=== PATIENT | male | born 1955 | race Caucasian/White ===

== ENCOUNTER 2020-09-01 14:34 | Inpatient (IN) | payer OTHER ==
[2020-09-01] MEDS ORDERED: SODIUM CHLORIDE 0.9% 1,000 ML IV STA (15:00)
[2020-09-01] MEDS ORDERED: ACETAMINOPHEN TAB 500 MG TAB PO STA (15:00)
--- NOTE | 2020-09-01 15:12 | ED ---
General Adult HPI - General Chief complaint: Fever Stated complaint: fever,cough Time Seen by Provider: 09/01/20 14:59 Source: patient Mode of arrival: ambulatory Limitations: no limitations - History of Present Illness Initial comments: Dictation was produced using [employer]Enable dictation software. please excuse any grammatical, word or spelling errors. Chief Complaint: 65-year-old male presents with respiratory infectious symptoms for 8 days History of Present Illness: Exudate 5-year-old male who presents with symptoms of respiratory illness for 8 days. Patient denies any obvious sick exposures. States that his symptoms include cough, fever and shortness of breath. Tuesday last week which was 3 days ago he had a rapid Covid test performed at [facility] which he recently found out was positive. States that his symptoms have been slowly worsening. Patient states his cough is nonproductive. Denies any medical history. His past surgical history cholecystectomy. He denies getting his Covid vaccination. The ROS documented in this emergency department record has been reviewed and confirmed by me. Those systems with pertinent positive or negative responses have been documented in the HPI. All other systems are other negative and/or noncontributory. PHYSICAL EXAM: General Impression: Alert and oriented x3, not in acute distress HEENT: Normocephalic atraumatic, extra-ocular movements intact, pupils equal and reactive to light bilaterally, mucous membranes moist. Cardiovascular: Heart regular rate and rhythm Chest: Able to complete full sentences, no retractions, no tachypnea Abdomen: abdomen soft, non-tender, non-distended, no organomegaly Musculoskeletal: Pulses present and equal in all extremities, no peripheral edema Motor: no focal deficits noted Neurological: CN II-XII grossly intact, no focal motor or sensory deficits noted Skin: Intact with no visualized rashes Psych: Normal affect and mood ED course: 65-year-old well-appearing male allegedly tested positive for Covid 3 days ago. He presents today with worsening respiratory infectious symptoms. Signs upon arrival shows 89% on room air, temperature 101.1. Laboratory evaluation obtained. CBC is unremarkable. D-dimer slightly elevated at 0.71. Metabolic panel shows potassium 3.0. Slight elevation of liver markers. For panel virus PCR is negative for influenza RSV and coronavirus. X- ray shows patchy airspace disease possible pneumonia versus COVID-19. Believe that are PCR was a false negative. Patient given Decadron. Patient will be admitted for hypoxic respiratory failure. Case discussed with Dr. Murphy. Pulmonology be on consult. Patient given azithromycin and ceftriaxone for concerns of community acquired pneumonia. Patient is agreeable to plan. EKG interpretation: Ventricular rate 90, normal sinus rhythm, AR interval 154, QRS 88, QTc 450. No AR prolongation, no QTC prolongation, no ST or T-wave change s noted. Overall, this EKG is unremarkable - Related Data Home Medications Medication Instructions Recorded Confirmed Aspirin EC [Ecotrin Low Dose] 81 mg PO HS 09/01/20 09/01/20 Melatonin 10 mg PO HS 09/01/20 09/01/20 Allergies Allergy/AdvReac Type Severity Reaction Status Date / Time No Known Allergies Allergy Verified 09/01/20 16:32 Review of Systems ROS Statement: Those systems with pertinent positive or pertinent negative responses have been documented in the HPI. ROS Other: All systems not noted in ROS Statement are negative. Past Medical History Past Medical History: No Reported History History of Any Multi-Drug Resistant Organisms: None Reported Past Surgical History: Cholecystectomy Past Psychological History: No Psychological Hx Reported Smoking Status: Never smoker Past Alcohol Use History: None Reported Past Drug Use History: None Reported General Exam Limitations: no limitations Course Vital Signs 09/01/20 09/01/20 09/01/20 14:40 14:57 15:16 Temperature 101.1 F H Pulse Rate 97 92 Respiratory 22 20 18 Rate Blood Pressure 125/86 131/86 O2 Sat by Pulse 89 L 90 L Oximetry 09/01/20 16:14 Temperature 99.0 F Pulse Rate 84 Respiratory 18 Rate Blood Pressure 119/76 O2 Sat by Pulse 96 Oximetry Medical Decision Making - Lab Data Result diagrams: 09/01/20 15:00 09/01/20 15:00 Lab Results 09/01/20 09/01/20 09/01/20 Range/Units 15:00 15:00 15:00 WBC 5.7 (3.8-10.6) k/uL RBC 5.49 (4.30-5.90) m/uL Hgb 15.4 (13.0-17.5) gm/dL Hct 46.6 (39.0-53.0) % MCV 84.9 (80.0-100.0) fL MCH 28.0 (25.0-35.0) pg MCHC 33.0 (31.0-37.0) g/dL RDW 13.9 (11.5-15.5) % Plt Count 121 L (150-450) k/uL MPV 7.1 Neutrophils % 81 % Lymphocytes % 11 % Monocytes % 5 % Eosinophils % 0 % Basophils % 0 % Neutrophils # 4.6 (1.3-7.7) k/uL Lymphocytes # 0.6 L (1.0-4.8) k/uL Monocytes # 0.3 (0-1.0) k/uL Eosinophils # 0.0 (0-0.7) k/uL Basophils # 0.0 (0-0.2) k/uL D-Dimer (<0.60) mg/L FEU Sodium 138 (137-145) mmol/L Potassium 3.0 L (3.5-5.1) mmol/L Chloride 98 (98-107) mmol/L Carbon Dioxide 33 H (22-30) mmol/L Anion Gap 7 mmol/L BUN 16 (9-20) mg/dL Creatinine 0.63 L (0.66-1.25) mg/dL Est GFR (CKD-EPI)AfAm >90 (>60 ml/min/1.73 sqM) Est GFR (CKD-EPI)NonAf >90 (>60 ml/min/1.73 sqM) Glucose 136 H (74-99) mg/dL Plasma Lactic Acid Ronn 1.1 (0.7-2.0) mmol/L Calcium 8.3 L (8.4-10.2) mg/dL Magnesium 2.1 (1.6-2.3) mg/dL Total Bilirubin 0.6 (0.2-1.3) mg/dL AST 114 H (17-59) U/L ALT 108 H (4-49) U/L Alkaline Phosphatase 68 (38-126) U/L C-Reactive Protein 14.6 H (<1.0) mg/dL Total Protein 6.4 (6.3-8.2) g/dL Albumin 3.4 L (3.5-5.0) g/dL Influenza Type A (PCR) (Not Detectd) Influenza Type B (PCR) (Not Detectd) RSV (PCR) (Not Detectd) SARS-CoV-2 (PCR) (Not Detectd) 09/01/20 09/01/20 Range/Units 15:00 15:16 WBC (3.8-10.6) k/uL RBC (4.30-5.90) m/uL Hgb (13.0-17.5) gm/dL Hct (39.0-53.0) % MCV (80.0-100.0) fL MCH (25.0-35.0) pg MCHC (31.0-37.0) g/dL RDW (11.5-15.5) % Plt Count (150-450) k/uL MPV Neutrophils % % Lymphocytes % % Monocytes % % Eosinophils % % Basophils % % Neutrophils # (1.3-7.7) k/uL Lymphocytes # (1.0-4.8) k/uL Monocytes # (0-1.0) k/uL Eosinophils # (0-0.7) k/uL Basophils # (0-0.2) k/uL D-Dimer 0.71 H (<0.60) mg/L FEU Sodium (137-145) mmol/L Potassium (3.5-5.1) mmol/L Chloride (98-107) mmol/L Carbon Dioxide (22-30) mmol/L Anion Gap mmol/L BUN (9-20) mg/dL Creatinine (0.66-1.25) mg/dL Est GFR (CKD-EPI)AfAm (>60 ml/min/1.73 sqM) Est GFR (CKD-EPI)NonAf (>60 ml/min/1.73 sqM) Glucose (74-99) mg/dL Plasma Lactic Acid Ronn (0.7-2.0) mmol/L Calcium (8.4-10.2) mg/dL Magnesium (1.6-2.3) mg/dL Total Bilirubin (0.2-1.3) mg/dL AST (17-59) U/L ALT (4-49) U/L Alkaline Phosphatase (38-126) U/L C-Reactive Protein (<1.0) mg/dL Total Protein (6.3-8.2) g/dL Albumin (3.5-5.0) g/dL Influenza Type A (PCR) Not Detected (Not Detectd) Influenza Type B (PCR) Not Detected (Not Detectd) RSV (PCR) Not Detected (Not Detectd) SARS-CoV-2 (PCR) Not Detected (Not Detectd) Disposition Clinical Impression: Respiratory failure with hypoxia Disposition: ADMITTED IP TO THIS HOSP Condition: Fair Referrals: Nonstaff,Physician [Primary Care Provider] - 1-2 days
[2020-09-01 15:35] LABS: ALT 108 U/L (4-49); AST 114 U/L (17-59); African American GFR (CKD) >90 (>60 ml/min/1.73 sqM); Albumin 3.4 g/dL (3.5-5.0); Alkaline Phosphatase 68 U/L (38-126); Anion Gap 7 mmol/L; Blood Urea Nitrogen 16 mg/dL (9-20); Calcium 8.3 mg/dL (8.4-10.2); Carbon Dioxide 33 mmol/L (22-30); Chloride 98 mmol/L (98-107); Glucose 136 mg/dL (74-99); Magnesium 2.1 mg/dL (1.6-2.3); Non-African American GFR(CKD) >90 (>60 ml/min/1.73 sqM); Sodium 138 mmol/L (137-145); Total Bilirubin 0.6 mg/dL (0.2-1.3); Total Protein 6.4 g/dL (6.3-8.2)
--- NOTE | 2020-09-01 15:45 | XR ---
EXAMINATION TYPE: XR chest 2V DATE OF EXAM: 09/01/2020 COMPARISON: NONE HISTORY: Fever TECHNIQUE: Frontal and lateral views of the chest are obtained. FINDINGS: There is patchy airspace disease seen bilaterally. Cardiac silhouette is not enlarged. IMPRESSION: Patchy airspace disease is seen bilaterally. Please correlate for possible pneumonia versus COVID 19 versus other less likely etiologies. Repeat radiograph is recommended 6-8 weeks after resolution of patient's clinical symptoms to documen t radiologic clearance.
[2020-09-01 15:46] LABS: C Reactive Protein 14.6 mg/dL (<1.0)
[2020-09-01 15:47] LABS: Basophils % (A) 0 %; Eosinophils % (A) 0 %; HCT 46.6 % (39.0-53.0); HGB 15.4 gm/dL (13.0-17.5); Lymphocytes # (A) 0.6 k/uL (1.0-4.8); Lymphocytes % (A) 11 %; MCV 84.9 fL (80.0-100.0); Mean Platelet Volume 7.1; Monocytes # (A) 0.3 k/uL (0-1.0); Monocytes % (A) 5 %; Neutrophils # (A) 4.6 k/uL (1.3-7.7); Neutrophils % (A) 81 %; Platelet Count 121 k/uL (150-450); RBC 5.49 m/uL (4.30-5.90); RDW 13.9 % (11.5-15.5); WBC 5.7 k/uL (3.8-10.6)
[2020-09-01] MEDS ORDERED: DEXAMETHASONE SOD PHOSPHATE 10 MG/ML 1 ML VIAL IV STA (16:07)
[2020-09-01] MEDS ORDERED: POTASSIUM CHLORIDE ER 20 MEQ TAB.ER PO STA (16:12)
[2020-09-01] MEDS ORDERED: AZITHROMYCIN 500 MG in SODIUM CHLORIDE 0.9% 250 ML IVPB STA (16:46)
[2020-09-01] MEDS ORDERED: cefTRIAXone IN SWFI 1,000 MG/10 ML SYRINGE IVP STA (16:46)
[2020-09-01] MEDS ORDERED: NALOXONE 0.4 MG/ML 1 ML VIAL IV PRN (16:47)
[2020-09-01] MEDS: SODIUM CHLORIDE 0.9% 1,000 ML IV SCH (17:22)
[2020-09-01] MEDS ORDERED: Magnesium Replacement Protocol 1 EACH MISC MISCELLANE PRN (18:32)
[2020-09-01] MEDS ORDERED: Potassium Replacement Protocol 1 EACH MISC MISCELLANE PRN (18:32)
--- NOTE | 2020-09-01 19:15 | CT ---
EXAMINATION TYPE: CT angio chest DATE OF EXAM: 09/01/2020 COMPARISON: None HISTORY: SOB, + covid CT DLP: 421.5 mGycm Automated exposure control for dose reduction was used. CONTRAST: Performed with IV Contrast, patient injected with 65cc mL of Isovue 370. Images obtained from the thoracic inlet to the diaphragm with IV contrast. There is extensive patchy airspace infiltrate in both lungs in the upper and lower lobes. Heart appea rs enlarged. There is no pleural effusion. Upper abdominal soft tissues are intact. There are no hilar masses. There is no mediastinal adenopathy. Thoracic aorta shows no aneurysm or di ssection. The ascending aorta measures 3.3 cm. I see no filling defects in the pulmonary arteries. There is some minimal spurring in the thoracic spine. There is no compression fracture. Sternum is in tact. The bony thorax is intact. There is no thoracic compression fracture. IMPRESSION: No evidence of pulmonary embolism. Patchy bilateral pulmonary infiltrates consistent with multifocal pneumonia. This could be developing RDS. No pleural fluid seen to suggest heart failure.
--- NOTE | 2020-09-01 19:28 | HP ---
HISTORY AND PHYSICAL DATE OF SERVICE: 09/01/2020. CHIEF COMPLAINT: Shortness of breath, fever and cough. HISTORY OF PRESENT ILLNESS: This 65-year-old gentleman with a past medical history of cholecystectomy, also followed by primary physician in [place] where the patient lives. The patient was visiting daughter for the last few weeks and the patient's got Covid infection recently. The patient has had cough and sputum and shortness of breath for the last 8 days. The patient was checked focal would 19 testing about 3 days ago and the rapid test was performed at [facility] which was found to be positive. Because of the worsening symptoms, the patient came to [facility] and was admitted for evaluation and treatment. The patient was found to have pulse ox of 89 percent on room air and temperature was 101.1. The patient was admitted for further evaluation. Chest x-ray showed extensive bilateral interstitial infiltrates highly suggestive of COVID-19 pneumonia. D-dimer is also elevated. CT angio chest is being ordered at this time. Procalcitonin is not available at this time. PAST MEDICAL HISTORY: History of cholecystectomy. MEDICATIONS: Home medications are melatonin and aspirin 81 mg at bedtime. ALLERGIES: None. FAMILY HISTORY: No history of heart disease or strokes in the family. 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 No history of smoking. No alcohol intake. REVIEW OF SYSTEMS: ENT: No diminished vision. CARDIOVASCULAR: As mentioned earlier. RESPIRATORY: As mentioned earlier. GI: No nausea. : No dysuria. NERVOUS SYSTEM: No numbness or weakness. ALLERGY: No asthma, hayfever. MUSCULOSKELETAL: As mentioned. HEMATOLOGY: No history of anemia. ENDOCRINE: No history of diabetes. CONSTITUTIONAL: As mentioned earlier. DERMATOLOGY: Negative. PSYCHIATRY: As mentioned earlier. PHYSICAL EXAMINATION: Patient alert and oriented x3. Pulse is 97, blood pressure 124/86, respiration 22, temperature 101.1, pulse ox 89 percent room air. HEENT: Conjunctivae normal. Oral mucosa moist. NECK: No nodes. CARDIOVASCULAR: S1 and S2 muffled. LUNGS: Breath sounds diminished at the bases. Few scattered rhonchi and crackles. ABDOMEN: Soft nontender. LEGS: No edema no swelling. NERVOUS SYSTEM: Higher functions as mentioned. Moves all 4 limbs. No focal motor or sensory deficits. LYMPHATICS: No lymph nodes palpable in the neck, axillae or groin. SKIN: No ulcers. JOINTS: No active deforming arthropathy. LABS: At this time shows WBC 5.7, platelets are 121. Other labs are noted. Sodium 130, potassium is 3. ASSESSMENT: 1. Acute COVID-19 infection with acute bilateral interstitial pneumonia with acute hypoxic respiratory failure. 2. Continued fever. 3. Thrombocytopenia. 4. Elevated D-dimer, rule out pulmonary embolism. 5. Elevated inflammatory markers of COVID-19. 6. Hypokalemia. 7. Elevated random glucose. 8. Hypocalcemia. 9. Elevated AST and ALT, possibly mild hepatitis related COVID-19. 10.Elevated CRP. 11.History of cholecystectomy. 12.Obesity with body mass of 32. 13.Full code. RECOMMENDATIONS: In this 65-year-old gentleman who presented with multiple complex medical issues, we will monitor the patient closely, continue the current medications, symptomatic treatment. We will initiate dexamethasone. Consult Dr. Montilla. The patient will be a candidate for Remdesivir. Otherwise bronchodilators, incentive spirometry, DVT prophylaxis, and the rest of the medications for COVID-19. Overall prognosis guarded because of multiple complex medical issues, at this time I have discussed with the patient. Further recommendations to follow. See orders for further details. MMODL / IJN: [id number] /
[2020-09-01 19:36] LABS: Prothrombin Time 10.6 sec (9.0-12.0)
[2020-09-01] MEDS: ALBUTEROL HFA INHALER INHALATION SCH (21:12)
[2020-09-01] MEDS: CHOLECALCIFEROL 25 MCG (1000 IU) TABLET PO SCH (21:16)
[2020-09-01] MEDS: ZINC SULFATE 220 MG CAP PO SCH (21:16)
[2020-09-01] MEDS: ASCORBIC ACID 500 MG TAB PO SCH (21:17)
[2020-09-01] MEDS: MELATONIN 5 MG TABLET PO SCH (21:17)
[2020-09-01] MEDS: ENOXAPARIN 40 MG/0.4 ML SYRINGE SQ SCH (21:17)
[2020-09-01] MEDS: ASPIRIN 81 MG PO SCH (21:17)
[2020-09-02] MEDS: ACETAMINOPHEN TAB 325 MG TAB PO PRN ×4 (03:02→23:18)
[2020-09-02] MEDS: ALBUTEROL HFA INHALER INHALATION SCH ×3 (07:27→19:22)
[2020-09-02 08:20] LABS: Appearance,Urine Clear (Clear); Bacteria,Urine Rare /hpf; Bilirubin,Urine Negative (Negative); Blood,Urine Small (Negative); Color,Urine Yellow; Glucose,Urine (UA) Negative (Negative); Ketones,Urine 1+ (Negative); Leukocyte Esterase,Urine Negative (Negative); Mucus,Urine Moderate /hpf; Nitrite,Urine Negative (Negative); Protein,Urine 3+ (Negative); RBC,Urine 2 /hpf (0-5); Urobilinogen,Urine <2.0 mg/dL (<2.0); WBC,Urine 3 /hpf (0-5)
[2020-09-02 08:26] LABS: Specific Gravity,Urine >1.050 (1.001-1.035)
[2020-09-02 09:05] LABS: Basophils # (A) 0.01 X 10*3/uL (0.00-0.10); Basophils % (A) 0.2 %; Eosinophils # (A) 0 X 10*3/uL (0.04-0.35); Eosinophils % (A) 0 %; HCT 42.7 % (39.6-50.0); HGB 13.9 g/dL (13.0-17.0); Lymphocytes # (A) 0.77 X 10*3/uL (0.90-5.00); Lymphocytes % (A) 12.7 %; MCH 28.4 pg (27.0-32.0); MCHC 32.6 g/dL (32.0-37.0); MCV 87.1 fL (80.0-97.0); Mean Platelet Volume 9.3 fL (9.5-12.2); Monocytes # (A) 0.41 X 10*3/uL (0.20-1.00); Monocytes % (A) 6.8 %; Neutrophils # (A) 4.85 X 10*3/uL (1.80-7.70); Neutrophils % (A) 79.8 %; Platelet Count 144 X 10*3/uL (140-440); RDW 14.6 % (11.5-14.5); WBC 6.07 X 10*3/uL (4.50-10.00)
[2020-09-02] MEDS: ENOXAPARIN 40 MG/0.4 ML SYRINGE SQ SCH (09:14)
[2020-09-02] MEDS: ZINC SULFATE 220 MG CAP PO SCH (09:14)
[2020-09-02] MEDS: dexAMETHasone 2 MG TAB PO SCH (09:14)
[2020-09-02] MEDS: CHOLECALCIFEROL 25 MCG (1000 IU) TABLET PO SCH (09:14)
[2020-09-02] MEDS: ASCORBIC ACID 500 MG TAB PO SCH (09:14)
--- NOTE | 2020-09-02 11:52 | P.CNPUL ---
History of Present Illness Consult date: 09/02/20 Requesting physician: Agus Camejo Reason for consult: hypoxemia, pneumonia, abnormal CXR/CT, other Chief complaint: COVID-19 pneumonia, fever, weakness, body aches History of present illness: This is a 65-year-old white male patient who resides in [place], [place], and is currently in [place] visiting his daughter, presented to the emergency department on 09/01/2020 for evaluation of one week's worth of symptoms of a respiratory illness. Patient states that his symptoms include cough, fever, shortness of breath, loss of taste, generalized weakness, body aches, and diarrhea. He stated that he bought COVID 19 test kit at [facility] on 08/29/2020 which was reportedly positive. He states his is also sick with COVID-19, however not requiring hospitalization. Patient [place] with [place], and he stated he was not wearing a mask. He denies any obvious sick contacts. However he was not vaccinated for COVID-19. Denies any major medical history, patient is a lifetime nonsmoker, his had a previous history of cholecystectomy, denies any history of diabetes. Home medications include melatonin and a baby aspirin at bedtime. His chest x-ray on admission showed patchy airspace disease bilaterally. Patient was febrile on presentation with temp of 101.1F. He was placed on supplemental oxygen, currently requiring 3 L of oxygen a pulse ox of 92%, his rapid COVID-19 test in the [facility] was negative, influenza and RSV screen were also negative. Admission laboratory showed a white blood cell count 5.7, hemoglobin of 15.4, platelet count was 121, lymphocyte count was 0.6, d-dimer was 0.71, potassium is 3.0, sodium is 138, CO2 is 33, BUN is 16 creatinine 0.63, plasma lactic acid was 1.1, his AST and ALT were elevated at 114 and 1 await respectively, alkaline phosphatase is 68, CRP is 14.6, pro calcitonin level was negative at 0.16. Urinalysis but elevated urine specific gravity of greater than 1.050, 3+ protein, and 1+ ketone, but no clear evidence of infection. Initially patient was started on azithromycin and Rocephin which has since been discontinued in view of negative pro calcitonin, Decadron was added at 6 mg daily dose, patient was placed on Lovenox for DVT prophylaxis, he was started on multivitamins including vitamin D, zinc, and vi tamin C. CTA chest showed no evidence of pulmonary embolism, it did show patchy bilateral pulmonary infiltrates consistent with multifocal pneumonia. No pleural fluid seen to suggest heart failure. Review of Systems All systems: negative Constitutional: Reports fatigue, Reports fever, Reports weakness, Denies chills Eyes: denies blurred vision, denies pain Ears, nose, mouth and throat: Denies headache, Denies sore throat Cardiovascular: Denies chest pain, Denies shortness of breath Respiratory: Reports cough, Reports dyspnea Gastrointestinal: Reports diarrhea, Denies abdominal pain, Denies nausea, Denies vomiting Musculoskeletal: Reports myalgias Integumentary: Denies pruritus, Denies rash Neurological: Denies numbness, Denies weakness Psychiatric: Denies anxiety, Denies depression Endocrine: Denies fatigue, Denies weight change Past Medical History Past Medical History: No Reported History Additional Past Medical History / Comment(s): hepatitis History of Any Multi-Drug Resistant Organisms: None Reported Past Surgical History: Cholecystectomy Past Psychological History: No Psychological Hx Reported Smoking Status: Never smoker Past Alcohol Use History: None Reported Past Drug Use History: None Reported Medications and Allergies Home Medications Medication Instructions Recorded Confirmed Type Aspirin EC [Ecotrin Low Dose] 81 mg PO HS 09/01/20 09/01/20 History Melatonin 10 mg PO HS 09/01/20 09/01/20 History Allergies Allergy/AdvReac Type Severity Reaction Status Date / Time No Known Allergies Allergy Verified 09/01/20 16:32 Physical Exam Vitals: Vital Signs Temp Pulse Pulse Resp BP BP Pulse Ox 09/02/20 10:37 91 92 L 09/02/20 09:53 100.4 F H 94 26 H 169/88 92 L 09/02/20 07:27 94 L 09/02/20 05:34 98.8 F 09/02/20 02:50 100.4 F H 91 19 146/84 93 L 09/01/20 20:00 99.6 F 87 18 132/80 95 09/01/20 18:30 99.7 F H 87 18 133/82 97 09/01/20 17:35 86 18 114/76 96 09/01/20 16:14 99.0 F 84 18 119/76 96 09/01/20 15:16 92 18 131/86 90 L 09/01/20 14:57 20 09/01/20 14:40 101.1 F H 97 22 125/86 89 L Intake and Output 09/01/20 09/02/20 09/02/20 22:59 06:59 14:59 Intake Total 780 120 Balance 780 120 Intake: Intake, IV Titration 240 Amount Sodium Chloride 0.9% 1, 240 000 ml @ 20 mls/hr IV . Q24H [facility] Rx#:[id number] Oral 540 120 Other: Weight 89.993 kg GENERAL EXAM: Alert, very pleasant, 65-year-old white male, on 3 L of oxygen pulse ox of 92% comfortable in no apparent distress. HEAD: Normocephalic/atraumatic. EYES: Normal reaction of pupils, equal size. Conjunctiva pink, sclera white. NOSE: Clear with pink turbinates. THROAT: No erythema or exudates. NECK: No masses, no JVD, no thyroid enlargement, no adenopathy. CHEST: No chest wall deformity. Symmetrical expansion. LUNGS: Equal air entry with diffuse crackles CVS: Regular rate and rhythm, normal S1 and S2, no gallops, no murmurs, no rubs ABDOMEN: Soft, nontender. No hepatosplenomegaly, normal bowel sounds, no guarding or rigidity. EXTREMITIES: No clubbing, no edema, no cyanosis, 2+ pulses and upper and lower extremities. MUSCULOSKELETAL: Muscle strength and tone normal. SPINE: No scoliosis or deformity SKIN: No rashes CENTRAL NERVOUS SYSTEM: Alert and oriented -3. No focal deficits, tone is normal in all 4 extremities. PSYCHIATRIC: Alert and oriented -3. Appropriate affect. Intact judgment and insight. Results - Laboratory Findings CBC and BMP: 09/02/20 06:43 09/01/20 15:00 PT/INR, D-dimer PT 10.6 sec (9.0-12.0) 09/01/20 15:00 INR 1.0 (<1.2) 09/01/20 15:00 D-Dimer 0.71 mg/L FEU (<0.60) H 09/01/20 15:00 Abnormal lab findings: Abnormal Labs 09/01/20 09/01/20 09/01/20 15:00 15:00 15:00 RDW Plt Count 121 L MPV Lymphocytes # 0.6 L Eosinophils # D-Dimer 0.71 H Potassium 3.0 L Carbon Dioxide 33 H Creatinine 0.63 L Glucose 136 H Calcium 8.3 L AST 114 H ALT 108 H C-Reactive Protein 14.6 H Albumin 3.4 L Procalcitonin Ur Specific [place] Urine Protein Urine Ketones Urine Blood Urine Bacteria Urine Mucus 09/01/20 09/02/20 09/02/20 15:00 06:43 07:47 RDW 14.6 H Plt Count MPV 9.3 L Lymphocytes # 0.77 L Eosinophils # 0 L D-Dimer Potassium Carbon Dioxide Creatinine Glucose Calcium AST ALT C-Reactive Protein Albumin Procalcitonin 0.16 H Ur Specific [place] >1.050 H Urine Protein 3+ H Urine Ketones 1+ H Urine Blood Small H Urine Bacteria Rare H Urine Mucus Moderate H - Diagnostic Findings Chest x-ray: report reviewed, image reviewed CT scan - chest: report reviewed, image reviewed Additional studies: EKG reviewed Assessment and Plan Plan: Assessment: #1. Acute hypoxic respiratory failure, related to what appears to be COVID-19 related to pneumonia. Patient tested positive with a COVID-19 self-test on 08/29/2020. Not vaccinated. Onset of symptoms is one week ago, on 08/26/2020. Started on the Remdesivir on 09/19/2020 #2. Dehydration related to diarrhea related to COVID-19 infection #3. Cough, fever, shortness of breath related to COVID-19 pneumonia #4. Elevated d-dimer, with no CTA evidence of pulmonary embolism #5. Lifetime nonsmoker #6. History of cholecystectomy Plan: Continue Decadron 6 mg daily Continue current dose Lovenox 40 mg daily subcutaneously We will add Remdesivir per protocol Discontinue antibiotics Monitor oxygenation pattern Continue multivitamins I performed a history & physical examination of the patient and discussed their management with my nurse practitioner, Melissa Harley. I reviewed the nurse practitioner's note and agree with the documented findings and plan of care. Lung sounds are positive for diminished breath sounds.. The findings and the impression was discussed with the patient. I attest to the documentation by the nurse practitioner. Time with Patient: Greater than 30
[2020-09-02] MEDS ORDERED: REMDESIVIR 200 MG in SODIUM CHLORIDE 0.9% 250 ML IVPB ONE (12:00)
[2020-09-02 15:39] LABS: Albumin 3.3 g/dL (3.80-4.90); Albumin/Globulin Ratio 1.38 (1.60-3.17); Anion Gap 9.6 mmol/L (4.00-12.00); Carbon Dioxide 32.4 mmol/L (21.6-31.8); Globulin 2.4 g/dL (1.6-3.3); Magnesium 1.8 mg/dL (1.5-2.4); Potassium 3.5 mmol/L (3.5-5.5); Total Bilirubin 0.5 mg/dL (0.2-1.2); Total Protein 5.7 g/dL (6.2-8.2)
[2020-09-02] MEDS ORDERED: Potassium Replacement Protocol 1 EACH MISC MISCELLANE PRN (15:42)
[2020-09-02] MEDS ORDERED: Magnesium Replacement Protocol 1 EACH MISC MISCELLANE PRN (15:43)
[2020-09-02] MEDS: MAGNESIUM SULFATE-D5W PMX 1 GM in DEXTROSE/WATER 1 100ML.BAG IVPB SCH ×2 (16:13→19:12)
[2020-09-02] MEDS: POTASSIUM CHLORIDE ER 20 MEQ TAB.ER PO SCH ×2 (16:13→19:12)
[2020-09-02 16:49] LABS: C Reactive Protein 11.3 mg/dL (0.0-0.8)
--- NOTE | 2020-09-02 17:09 | PN ---
PROGRESS NOTE DATE OF SERVICE: 09/02/2020 This 65-year-old gentleman who was admitted with acute COVID-19 infection with acute bilateral interstitial pneumonia, acute hypoxic respiratory failure, is being closely monitored at this time. The patient's serum procalcitonin is also elevated. Patient initially on broad-spectrum IV antibiotics. Inflammatory markers of Covid [address] Montilla is following the patient closely. The patient has been started on Remdesivir at this time. Influenza and RSV are negative. PAST MEDICAL HISTORY: Reviewed. REVIEW OF SYSTEMS: CARDIOVASCULAR system: No angina. RESPIRATORY: As mentioned earlier. GI: As mentioned earlier. : No dysuria. NERVOUS SYSTEM: No numbness, weakness. CURRENT MEDICATIONS: Reviewed and include: Tylenol, Ventolin, vitamin C, aspirin, Rocephin 2 g , Hexadrol, Lovenox, Melatonin, Remdesivir, zinc. PHYSICAL EXAMINATION: Patient is alert, oriented x3. Pulse is 99, blood pressure is 124/76, respiration 22, temperature 100.6. T-Max is 100.6. Pulse ox 91 percent on 4 L. HEENT: Conjunctivae normal. NECK: No JVD. CARDIOVASCULAR: S1, S2 muffled. RESPIRATORY: Breath sounds diminished in the bases. Scattered rhonchi and crackles. ABDOMEN: Soft. NERVOUS SYSTEM: No focal deficits. LABS: WBC 6.7. Hemoglobin 13.9. CMP is not available. ASSESSMENT: 1. Acute Covid 19 infection with acute bilateral interstitial pneumonia with acute hypoxic respiratory failure. 2. Possible acute bacterial pneumonia. 3. Elevated procalcitonin. 4. Continued fever. 5. Thrombocytopenia. 6. Elevated D-dimer, no evidence of an acute pulmonary embolism. 7. Elevated inflammatory markers of COVID-19. 8. Hypokalemia. 9. Elevated random glucose. 10.Hypocalcemia. 11.Elevated AST/ALT, possibly mild hepatitis, cellulitis related to COVID-19. 12.Elevated CRP. 13.History of cholecystectomy. 14.Obesity, body mass index of 32. 15.FULL CODE. RECOMMENDATIONS AND DISCUSSION: Recommend to continue current medications, management and symptomatic treatment. Continue current medications. Continue Remdesivir. Continue the rest of the medications. Continue with the empiric antibiotics. Follow the cultures. Also recommend at this time, ultrasound of the legs to rule out the possible DVTs. Prognosis guarded. Further recommendations to follow. MMODL / IJN: [id number] / [id number]
[2020-09-02 17:28] LABS: Ferritin 2676.1 ng/mL (22.0-322.0)
[2020-09-02] MEDS: SODIUM CHLORIDE 0.9% 1,000 ML IV SCH (18:23)
[2020-09-02] MEDS: ASPIRIN 81 MG PO SCH (20:38)
[2020-09-02] MEDS: MELATONIN 5 MG TABLET PO SCH (20:38)
[2020-09-03] MEDS: ACETAMINOPHEN TAB 325 MG TAB PO PRN ×2 (05:37→15:03)
[2020-09-03] MEDS: ASCORBIC ACID 500 MG TAB PO SCH (07:53)
[2020-09-03] MEDS: ENOXAPARIN 40 MG/0.4 ML SYRINGE SQ SCH (07:53)
[2020-09-03] MEDS: dexAMETHasone 2 MG TAB PO SCH (07:53)
[2020-09-03] MEDS: ZINC SULFATE 220 MG CAP PO SCH (07:53)
[2020-09-03] MEDS: CHOLECALCIFEROL 25 MCG (1000 IU) TABLET PO SCH (07:53)
[2020-09-03] MEDS: ALBUTEROL HFA INHALER INHALATION SCH ×3 (09:13→20:01)
[2020-09-03 10:42] LABS: Basophils % (A) 0 %; Eosinophils % (A) 0 %; HGB 14.2 gm/dL (13.0-17.5); Lymphocytes # (A) 0.5 k/uL (1.0-4.8); Lymphocytes % (A) 8 %; MCH 28.8 pg (25.0-35.0); MCHC 33.1 g/dL (31.0-37.0); MCV 87.1 fL (80.0-100.0); Mean Platelet Volume 7.4; Monocytes # (A) 0.3 k/uL (0-1.0); Monocytes % (A) 4 %; Neutrophils # (A) 5.2 k/uL (1.3-7.7); Neutrophils % (A) 85 %; Platelet Count 178 k/uL (150-450); RBC 4.93 m/uL (4.30-5.90); RDW 14.2 % (11.5-15.5); WBC 6.2 k/uL (3.8-10.6)
--- NOTE | 2020-09-03 12:54 | P.PN ---
Subjective Progress Note Date: 09/03/20 Principal diagnosis: This is a 65-year-old white male patient who resides in [place], [place], and is currently in [place] visiting his daughter, presented to the emergency departm ent on 09/01/2020 for evaluation of one week's worth of symptoms of a respiratory illness. Patient states that his symptoms include cough, fever, shortness of breath, loss of taste, generalized weakness, body aches, and diarrhea. He stated that he bought COVID 19 test kit at [facility] on 08/29/2020 which was reportedly positive. He states his is also sick with COVID-19, however not requiring hospitalization. Patient [place] with [place], and he stated he was not wearing a mask. He denies any obvious sick contacts. However he was not vaccinated for COVID-19. Denies any major medical history, patient is a lifetime nonsmoker, his had a previous history of cholec ystectomy, denies any history of diabetes. Home medications include melatonin and a baby aspirin at bedtime. His chest x-ray on admission showed patchy airspace disease bilaterally. Patient was febrile on presentation with temp of 101.1F. He was placed on supplemental oxygen, currently requiring 3 L of oxygen a pulse ox of 92%, his rapid COVID-19 test in the [facility] was negative, influenza and RSV screen were also negative. Admission laboratory showed a white blood cell count 5.7, hemoglobin of 15.4, platelet count was 121, lymphocyte count was 0.6, d-dimer was 0.71, potassium is 3.0, sodium is 138, CO2 is 33, BUN is 16 creatinine 0.63, plasma lactic acid was 1.1, his AST and ALT were elevated at 114 and 1 await respectively, alkaline phosphatase is 68, CRP is 14.6, pro calcitonin level was negative at 0.16. Urinalysis but elevated urine specific gravity of greater than 1.050, 3+ protein, and 1+ ketone, but no clear evidence of infection. Initially patient was started on azithromycin and Rocephin which has since been discontinued in view of negative pro calcitonin, Decadron was added at 6 mg daily dose, patient was placed on Lovenox for DVT prophylaxis, he was started on multivitamins including vitamin D, zinc, and vitamin C. CTA chest showed no evidence of pulmonary embolism, it did show patchy bilateral pulmonary infiltrates consistent with multifocal pneumonia. No pleural fluid seen to suggest heart failure. On 09/03/2020 patient seen in follow-up on medical surgical floor, he is awake, he is resting in bed, looks fatigued, still having some low-grade fevers, with a T-max of 100.1F early this morning, he is on 4 L of oxygen pulse ox is 93%, hemodynamically stable, denies any chest discomfort, has occasional dry cough. Today is day 2 of Remdesivir, remains on Decadron 6 mg daily, remains on the vitamins, prophylactic Lovenox, Rocephin was restarted however 2 sets of pro calcitonin came back low at 0.16, suggesting absence of bacterial infection. His appetite is quite poor, he has 0.9 normal saline infusing at 20 ML per hour, he still having some diarrhea. Objective - Vital Signs Vital signs: Vital Signs Temp 99.4 F 09/03/20 10:02 Pulse 98 09/03/20 10:02 Resp 24 09/03/20 10:02 BP 143/89 09/03/20 10:02 Pulse Ox 93 L 09/03/20 10:02 Intake & Output 09/02/20 09/03/20 09/03/20 18:59 06:59 18:59 Intake Total 660 440 Balance 660 440 Weight 89.993 kg Intake: Intake, IV Titration 440 Amount Magnesium Sulfate-D5w Pmx 200 1 gm In Dextrose/Water 1 100ml.bag @ 100 mls/hr IVPB Q1H [facility] Rx#: [id number] Sodium Chloride 0.9% 1, 240 000 ml @ 20 mls/hr IV . Q24H [facility] Rx#:[id number] Oral 660 Other: # Voids 3 4 - Exam GENERAL EXAM: Alert, very pleasant, 65-year-old white male, on 4 L of oxygen pulse ox of 93% comfortable in no apparent distress. HEAD: Normocephalic/atraumatic. EYES: Normal reaction of pupils, equal size. Conjunctiva pink, sclera white. NOSE: Clear with pink turbinates. THROAT: No erythema or exudates. NECK: No masses, no JVD, no thyroid enlargement, no adenopathy. CHEST: No chest wall deformity. Symmetrical expansion. LUNGS: Equal air entry with diffuse crackles CVS: Regular rate and rhythm, normal S1 and S2, no gallops, no murmurs, no rubs ABDOMEN: Soft, nontender. No hepatosplenomegaly, normal bowel sounds, no guarding or rigidity. EXTREMITIES: No clubbing, no edema, no cyanosis, 2+ pulses and upper and lower extremities. MUSCULOSKELETAL: Muscle strength and tone normal. SPINE: No scoliosis or deformity SKIN: No rashes CENTRAL NERVOUS SYSTEM: Alert and oriented -3. No focal deficits, tone is normal in all 4 extremities. PSYCHIATRIC: Alert and oriented -3. Appropriate affect. Intact judgment and insight. - Labs CBC & Chem 7: 09/03/20 10:31 09/02/20 06:43 Labs: Abnormal Lab Results - Last 24 Hours (Table) 09/02/20 09/02/20 09/03/20 Range/Units 06:43 06:43 10:31 Lymphocytes # 0.5 L (1.0-4.8) k/uL Carbon Dioxide 32.4 H (21.6-31.8) mmol/L BUN/Creatinine Ratio 25.00 H (12.00-20.00) Ratio Glucose 124 H (70-110) mg/dL Calcium 8.0 L (8.7-10.3) mg/dL Ferritin 2676.1 H (22.0-322.0) ng/mL AST 90 H (14-35) U/L ALT 94 H (10-49) U/L Lactate Dehydrogenase 468 H (120-246) U/L C-Reactive Protein 11.3 H (0.0-0.8) mg/dL Total Protein 5.7 L (6.2-8.2) g/dL Albumin 3.30 L (3.80-4.90) g/dL Albumin/Globulin Ratio 1.38 L (1.60-3.17) g/dL Procalcitonin 0.16 H (0.02-0.09) ng/mL Microbiology - Last 24 Hours (Table) 09/01/20 17:06 Blood Culture - Preliminary Blood No Growth after 24 hours Assessment and Plan Plan: Assessment: #1. Acute hypoxic respiratory failure, related to what appears to be COVID-19 related to pneumonia. Patient tested positive with a COVID-19 self-test on 08/29/2020. Not vaccinated. Onset of symptoms is one week ago, on 08/26/2020. Started on the Remdesivir on 09/19/2020 #2. Dehydration related to diarrhea related to COVID-19 infection #3. Cough, fever, shortness of breath related to COVID-19 pneumonia #4. Elevated d-dimer, with no CTA evidence of pulmonary embolism #5. Lifetime nonsmoker #6. History of cholecystectomy Plan: Continue current medical treatment Continue Decadron, Prophylactic Lovenox Discontinue Rocephin, 2 sets up her calcitonin level were negative Increase IV fluids to 150 ML per hour Follow-up d-dimer and inflammatory markers tomorrow I performed a history & physical examination of the patient and discussed their management with my nurse practitioner, Melissa Harley. I reviewed the nurse practitioner's note and agree with the documented findings and plan of care. Lung sounds are positive for diminished breath sounds.. The findings and the impression was discussed with the patient. I attest to the documentation by the nurse practitioner. Time with Patient: Less than 30
[2020-09-03] MEDS: REMDESIVIR 100 MG in SODIUM CHLORIDE 0.9% 250 ML IVPB SCH (13:04)
[2020-09-03 13:46] LABS: African American GFR (CKD) 116.4 (60.0-200.0); Albumin 3.3 g/dL (3.80-4.90); Albumin/Globulin Ratio 1.38 (1.60-3.17); BUN/Creat Ratio 27.14 Ratio (12.00-20.00); Calcium 8.1 mg/dL (8.7-10.3); Globulin 2.4 g/dL (1.6-3.3); Magnesium 2.3 mg/dL (1.5-2.4); Non-African American GFR(CKD) 100.4 (60.0-200.0); Potassium 3.7 mmol/L (3.5-5.5); Total Bilirubin 0.5 mg/dL (0.3-1.2); Total Protein 5.7 g/dL (6.2-8.2)
--- NOTE | 2020-09-03 19:13 | PN ---
PROGRESS NOTE DATE OF SERVICE: 09/03/2020 INTERVAL HISTORY: This 65-year-old gentleman who was admitted with acute COVID-19 infection and acute bilateral interstitial pneumonia. Patient continues to be hypoxic, patient on ( ) different medications. Pulmonary is following the patient closely. PAST MEDICAL HISTORY: Reviewed. REVIEW OF SYSTEMS: Cardiovascular system: No angina. Respiratory: As mentioned earlier. no dysuria. GI: As mentioned. Nervous system: No numbness, weakness. CURRENT MEDICATIONS: Reviewed include Tylenol, Ventolin, Hexadrol, Lovenox, melatonin, Narcan, Remdesivir, oral zinc. PHYSICAL EXAMINATION: Patient is alert, oriented. Pulse is 95, blood pressure 160/90, respiration rate 22, temperature 102.8, pulse ox 90% on 4 L. HEENT: Conjunctivae normal. NECK: No JVD. CARDIOVASCULAR: S1, S2 muffled. RESPIRATORY SYSTEM: Breath sounds diminished at the bases, a few scattered rhonchi. ABDOMEN: Soft, nontender. LEGS: Are no edema. NERVOUS SYSTEM: No focal deficits. LABS: CBC within normal limits. Otherwise, CBC, lymphocytes 0.5, otherwise glucose 143. ASSESSMENT: 1. Acute COVID-19 infection. 2. Acute bilateral interstitial pneumonia with acute hypoxic respiratory failure. 3. Possible acute bacterial pneumonia super added. 4. Elevated procalcitonin. 5. Continued fever. 6. Thrombocytopenia. 7. Elevated D-dimer with no evidence of acute pulmonary embolism. 8. Elevated inflammatory markers for COVID-19. 9. Hypokalemia. 10.Elevated random glucose. 11.Hypocalcemia. 12.Elevated AST ALT possibly mild hepatitis related to COVID-19. 13.Elevated CRP. 14.History of cholecystectomy. 15.Obesity, body mass index of 32. 16.FULL CODE. RECOMMENDATIONS AND DISCUSSION: I recommend to continue current management and treatment otherwise at this time. Continue with bronchodilators. Continue the rest of medications. Continue steroids. Monitor blood sugars closely. Guarded prognosis because of multiple complex medical issues and further recommendations to follow. MMODL / IJN: [id number] /
[2020-09-03] MEDS: MELATONIN 5 MG TABLET PO SCH (21:23)
[2020-09-03] MEDS: ASPIRIN 81 MG PO SCH (21:23)
--- NOTE | 2020-09-03 21:56 | CONS ---
CONSULTATION DATE OF SERVICE: 09/03/2020 REASON FOR CONSULTATION: Covid 19 pneumonia. HISTORY OF PRESENT ILLNESS: The patient is a 65-year-old male presented to the ER at [facility] 2 days ago for evaluation of increasing shortness of breath and cough. The patient's symptoms started on August 25, 2020 has been mostly a dry hacking cough along with shortness of breath. He did have some diarrhea and fever with chills. The patient did have a home test that he brought from [facility] on for Covid 19, which came positive. The patient mentioned he was himself over the weekend, however his symptoms continued to get worse. The patient is still having increasing shortness of breath on minimal exertion even at rest. The patient did have a cough which has been moderate intensity, unable to bring up any sputum. The patient felt nauseated but no vomiting. Has been complaining of diarrhea with multiple loose stools. No blood or mucus in the stool and abdominal pain. With these symptoms, the patient presented to the hospital. On arrival to the ER, the patient did have fever of 101 degrees Fahrenheit and continued to have a fever for the last few days. The patient did have hypoxemia on presentation with O2 sats of 89%, currently 93% on 4 L nasal cannula. The patient did have a normal white count with evidence of lymphopenia. D-dimer was mildly elevated. Creatinine was normal. Liver enzymes are elevated. CRP elevated. Procalcitonin level mildly elevated. Urine was negative. Suresh PCR came back negative. The patient did have a chest x-ray which shows patchy airspace disease bilaterally. The patient also had a CT angiogram of the chest that was negative for PE. However shows patchy bilateral pulmonary infiltrates consistent with multifocal pneumonia. The patient has been started on Remdesivir. Infectious Disease was consulted for further management. REVIEW OF SYSTEMS: Positive points have been mentioned in HPI. Rest of systems are negative. PAST MEDICAL HISTORY: No major illnesses. PAST SURGICAL HISTORY: Cholecystectomy. SOCIAL HISTORY: Denies smoking, drinking or drug use. FAMILY HISTORY: No pertinent findings noticed. ALLERGIES: No known drug allergies. MEDICATIONS: The patient is currently on Tylenol, Ventolin and aspirin, dexamethasone, Lovenox, melatonin, Narcan, Remdesivir, zinc. PHYSICAL EXAMINATION: Blood pressure is 143/89 with a pulse of 90, temperature 98.4, T-max 100.1. He is 93% on 4 L nasal cannula. GENERAL DESCRIPTION is a middle-aged male lying in bed in no distress. No tachypnea or accessory muscles of respiration use. HEENT: Examination shows no pallor or scleral icterus. Oral mucous membranes dry. NECK: Trachea central. No thyromegaly. LUNGS unlabored breathing. Coarse breath sounds bilaterally. No wheeze. HEART S1, S2. Regular rate and rhythm. ABDOMEN: Soft, no tenderness. No guarding. No rigidity. EXTREMITIES: No edema feet. SKIN: No rash or mass palpable. NEUROLOGICALLY: Patient is awake, alert, oriented times three. Mood and affect normal. LABS: Hemoglobin is 14.3, white count 6.2, BUN of 19, creatinine 0.7. Electrolytes have been normal. Liver enzymes are elevated. CRP was elevated. D-dimer is mildly elevated. CT angiogram was negative for PE. DIAGNOSTIC IMPRESSION AND PLAN: Patient admitted to the hospital with acute pneumonia, multifocal in this patient who did have a cough, shortness of breath. The patient did have a normal white count with leukopenia likely secondary to acute COVID-19 pneumonia. PLAN: 1. The patient has been started on Remdesivir protocol to continue 5 day course. 2. Dexamethasone, Lovenox, zinc and ascorbic acid. 3. Droplet isolation, respiratory support. 4. We will follow on clinical condition and further adjust medication if needed. Thank you for this consultation. Will follow this patient along with you. MMODL / IJN: [id number] /
[2020-09-03] MEDS: SODIUM CHLORIDE 0.9% 1,000 ML IV SCH (21:58)
[2020-09-04] MEDS: SODIUM CHLORIDE 0.9% 1,000 ML IV SCH (00:54)
[2020-09-04] MEDS: ACETAMINOPHEN TAB 325 MG TAB PO PRN (06:03)
[2020-09-04] MEDS: ALBUTEROL HFA INHALER INHALATION SCH ×3 (08:22→21:41)
[2020-09-04] MEDS: ZINC SULFATE 220 MG CAP PO SCH (09:15)
[2020-09-04] MEDS: ASCORBIC ACID 500 MG TAB PO SCH (09:15)
[2020-09-04] MEDS: CHOLECALCIFEROL 25 MCG (1000 IU) TABLET PO SCH (09:15)
[2020-09-04] MEDS: dexAMETHasone 2 MG TAB PO SCH (09:15)
[2020-09-04] MEDS: ENOXAPARIN 40 MG/0.4 ML SYRINGE SQ SCH (09:15)
--- NOTE | 2020-09-04 09:32 | XR ---
EXAMINATION TYPE: XR chest 1V portable DATE OF EXAM: 09/04/2020 CLINICAL HISTORY: covid pneumonia. TECHNIQUE: Portable frontal view of the chest. COMPARISON: 09/01/20 chest x-ray and CTA chest FINDINGS: The cardiomediastinal silhouette is within normal limits for size. Diffuse patchy airspace opacities and reticular interstitial opacities, which appear mildly decreased on the right and mildl y increased on the left. No pleural effusion. No pneumothorax seen. No acute displaced osseous fract ure. IMPRESSION: Moderate to marked diffuse patchy opacities characteristic of Covid 19 pneumonia.
[2020-09-04 10:33] LABS: Basophils # (A) 0.01 X 10*3/uL (0.00-0.10); Basophils % (A) 0.1 %; Eosinophils # (A) 0 X 10*3/uL (0.04-0.35); Eosinophils % (A) 0 %; HCT 43.3 % (39.6-50.0); HGB 13.9 g/dL (13.0-17.0); Lymphocytes # (A) 0.72 X 10*3/uL (0.90-5.00); Lymphocytes % (A) 9.7 %; MCH 28.3 pg (27.0-32.0); MCHC 32.1 g/dL (32.0-37.0); MCV 88.2 fL (80.0-97.0); Mean Platelet Volume 9.3 fL (9.5-12.2); Monocytes # (A) 0.54 X 10*3/uL (0.20-1.00); Monocytes % (A) 7.3 %; Neutrophils # (A) 6.11 X 10*3/uL (1.80-7.70); Neutrophils % (A) 82.4 %; Platelet Count 219 X 10*3/uL (140-440); RBC 4.91 X 10*6/uL (4.40-5.60); RDW 14.6 % (11.5-14.5); WBC 7.42 X 10*3/uL (4.50-10.00)
[2020-09-04 10:47] LABS: African American GFR (CKD) 133.7 (60.0-200.0); Albumin/Globulin Ratio 1.3 (1.60-3.17); Calcium 7.6 mg/dL (8.7-10.3); Globulin 2.3 g/dL (1.6-3.3); Non-African American GFR(CKD) 115.3 (60.0-200.0); Potassium 3.4 mmol/L (3.5-5.5); Total Bilirubin 0.7 mg/dL (0.2-1.2); Total Protein 5.3 g/dL (6.2-8.2)
--- NOTE | 2020-09-04 11:21 | P.PN ---
Subjective Progress Note Date: 09/04/20 Principal diagnosis: This is a 65-year-old white male patient who resides in [place], [place], and is currently in [place] visiting his daughter, presented to the emergency departm ent on 09/01/2020 for evaluation of one week's worth of symptoms of a respiratory illness. Patient states that his symptoms include cough, fever, shortness of breath, loss of taste, generalized weakness, body aches, and diarrhea. He stated that he bought COVID [address] [facility] [place] on 08/29/2020 which was reportedly positive. He states his is also sick with COVID-19, however not requiring hospitalization. Patient [place] with [place] family, and he stated he was not wearing a mask. He denies any obvious sick contacts. However he was not vaccinated for COVID-19. Denies any major medical history, patient is a lifetime nonsmoker, his had a previous history of cholec ystectomy, denies any history of diabetes. Home medications include melatonin and a baby aspirin at bedtime. His chest x-ray on admission showed patchy airspace disease bilaterally. Patient was febrile on presentation with temp of 101.1F. He was placed on supplemental oxygen, currently requiring 3 L of oxygen a pulse ox of 92%, his rapid COVID-19 test in the [facility] was negative, influenza and RSV screen were also negative. Admission laboratory showed a white blood cell count 5.7, hemoglobin of 15.4, platelet count was 121, lymphocyte count was 0.6, d-dimer was 0.71, potassium is 3.0, sodium is 138, CO2 is 33, BUN is 16 creatinine 0.63, plasma lactic acid was 1.1, his AST and ALT were elevated at 114 and 1 await respectively, alkaline phosphatase is 68, CRP is 14.6, pro calcitonin level was negative at 0.16. Urinalysis but elevated urine specific gravity of greater than 1.050, 3+ protein, and 1+ ketone, but no clear evidence of infection. Initially patient was started on azithromycin and Rocephin which has since been discontinued in view of negative pro calcitonin, Decadron was added at 6 mg daily dose, patient was placed on Lovenox for DVT prophylaxis, he was started on multivitamins including vitamin D, zinc, and vitamin C. CTA chest showed no evidence of pulmonary embolism, it did show patchy bilateral pulmonary infiltrates consistent with multifocal pneumonia. No pleural fluid seen to suggest heart failure. On 09/03/2020 patient seen in follow-up on medical surgical floor, he is awake, he is resting in bed, looks fatigued, still having some low-grade fevers, with a T-max of 100.1F early this morning, he is on 4 L of oxygen pulse ox is 93%, hemodynamically stable, denies any chest discomfort, has occasional dry cough. Today is day 2 of Remdesivir, remains on Decadron 6 mg daily, remains on the vitamins, prophylactic Lovenox, Rocephin was restarted however 2 sets of pro calcitonin came back low at 0.16, suggesting absence of bacterial infection. His appetite is quite poor, he has 0.9 normal saline infusing at 20 ML per hour, he still having some diarrhea. On 09/04/2020 patient seen in follow-up on medical surgical floor, his oxygen requirements have increased and patient is currently on 7 L of oxygen up from 4 L of oxygen yesterday, his pulse ox is 90-92%, has occasional dry nonproductive cough, he is feeling weak, appetite is poor. No chest discomfort, he did have a fever 102.8F yesterday in the afternoon, overnight his fever pattern has been improved, and distal low-grade temp at this morning with a temp of 99.7F, today is day 3 of Remdesivir, he continues on Decadron, prophylactic Lovenox, and multivitamins. His send out PCR test for COVID-19 is still pending. Today's labs have been reviewed, white blood cell count is 7.42, hemoglobin is 13.9, d- dimer is 1.21, sodium is 141, potassium is 4.9, BUN is 16, creatinine 0.5. His LDH is 550, his Legionella urine antigen was negative. Just had one bowel movement in the last 24 hours. Patient is voiding. Chest x-ray shows moderate to marked diffuse patchy opacities. May be slightly worsened compared admission chest x-ray Objective - Vital Signs Vital signs: Vital Signs Temp 98.3 F 09/04/20 10:00 Pulse 100 09/04/20 10:00 Resp 22 09/04/20 10:00 BP 148/83 09/04/20 10:00 Pulse Ox 91 L 09/04/20 10:00 Intake & Output 09/03/20 09/04/20 09/04/20 18:59 06:59 18:59 Other: # Voids 3 3 1 # Bowel Movements 1 - Exam GENERAL EXAM: Alert, very pleasant, 65-year-old white male, on 7 L of oxygen pulse ox of 93% comfortable in no apparent distress. HEAD: Normocephalic/atraumatic. EYES: Normal reaction of pupils, equal size. Conjunctiva pink, sclera white. NOSE: Clear with pink turbinates. THROAT: No erythema or exudates. NECK: No masses, no JVD, no thyroid enlargement, no adenopathy. CHEST: No chest wall deformity. Symmetrical expansion. LUNGS: Equal air entry with diffuse crackles CVS: Regular rate and rhythm, normal S1 and S2, no gallops, no murmurs, no rubs ABDOMEN: Soft, nontender. No hepatosplenomegaly, normal bowel sounds, no guarding or rigidity. EXTREMITIES: No clubbing, no edema, no cyanosis, 2+ pulses and upper and lower extremities. MUSCULOSKELETAL: Muscle strength and tone normal. SPINE: No scoliosis or deformity SKIN: No rashes CENTRAL NERVOUS SYSTEM: Alert and oriented -3. No focal deficits, tone is normal in all 4 extremities. PSYCHIATRIC: Alert and oriented -3. Appropriate affect. Intact judgment and insight. - Labs CBC & Chem 7: 09/04/20 06:37 09/04/20 06:37 Labs: Abnormal Lab Results - Last 24 Hours (Table) 09/03/20 09/03/20 09/04/20 Range/Units 06:45 15:49 06:37 RDW (11.5-14.5) % MPV (9.5-12.2) fL Lymphocytes # (0.90-5.00) X 10*3/uL Eosinophils # (0.04-0.35) X 10*3/uL ESR 54 H (0-15) mm/hr D-Dimer (<0.60) mg/L FEU Potassium 3.4 L (3.5-5.5) mmol/L Anion Gap 13.00 H (4.00-12.00) mmol/L Creatinine 0.5 L (0.6-1.5) mg/dL BUN/Creatinine Ratio 27.14 H 32.00 H (12.00-20.00) Ratio Glucose 143 H 114 H (70-110) mg/dL Calcium 8.1 L 7.6 L (8.7-10.3) mg/dL AST 114 H 91 H (14-35) U/L ALT 113 H 88 H (10-49) U/L Lactate Dehydrogenase 550 H (120-246) U/L Total Protein 5.7 L 5.3 L (6.2-8.2) g/dL Albumin 3.30 L 3.00 L (3.80-4.90) g/dL Albumin/Globulin Ratio 1.38 L 1.30 L (1.60-3.17) g/dL 09/04/20 09/04/20 Range/Units 06:37 06:37 RDW 14.6 H (11.5-14.5) % MPV 9.3 L (9.5-12.2) fL Lymphocytes # 0.72 L (0.90-5.00) X 10*3/uL Eosinophils # 0 L (0.04-0.35) X 10*3/uL ESR (0-15) mm/hr D-Dimer 1.21 H (<0.60) mg/L FEU Potassium (3.5-5.5) mmol/L Anion Gap (4.00-12.00) mmol/L Creatinine (0.6-1.5) mg/dL BUN/Creatinine Ratio (12.00-20.00) Ratio Glucose (70-110) mg/dL Calcium (8.7-10.3) mg/dL AST (14-35) U/L ALT (10-49) U/L Lactate Dehydrogenase (120-246) U/L Total Protein (6.2-8.2) g/dL Albumin (3.80-4.90) g/dL Albumin/Globulin Ratio (1.60-3.17) g/dL Microbiology - Last 24 Hours (Table) 09/01/20 17:06 Blood Culture - Preliminary Blood No Growth after 48 hours Assessment and Plan Plan: Assessment: #1. Acute hypoxic respiratory failure, related to what appears to be COVID-19 related to pneumonia. Patient tested positive with a COVID-19 self-test on 08/29/2020. Not vaccinated. Onset of symptoms is one week ago, on 08/26/2020. Started on the Remdesivir on 09/02/2020 #2. Dehydration related to diarrhea related to COVID-19 infection, receiving IV hydration #3. Cough, fever, shortness of breath related to COVID-19 pneumonia #4. Elevated d-dimer, with no CTA evidence of pulmonary embolism #5. Lifetime nonsmoker #6. History of cholecystectomy Plan: Continue Decadron Continue current dose Lovenox Continue IV hydration, diarrhea seems to have slowed down We can cut back to post to 75 ML per hour Encourage oral intake Encouraged the patient to self prone, and lay on both sides Provide incentive spirometer Follow blood work tomorrow Continue Remdesivir I performed a history & physical examination of the patient and discussed their management with my nurse practitioner, Melissa Harley. I reviewed the nurse practitioner's note and agree with the documented findings and plan of care. Lung sounds are positive for diminished breath sounds.. The findings and the impression was discussed with the patient. I attest to the documentation by the nurse practitioner. Time with Patient: Less than 30
[2020-09-04 11:26] LABS: C Reactive Protein 9.6 mg/dL (0.0-0.8)
[2020-09-04] MEDS: REMDESIVIR 100 MG in SODIUM CHLORIDE 0.9% 250 ML IVPB SCH (12:45)
--- NOTE | 2020-09-04 18:24 | PN ---
PROGRESS NOTE DATE OF SERVICE: 09/04/2020. REASON FOR FOLLOWUP: COVID-19 pneumonia. INTERVAL HISTORY: Patient is afebrile. Overall has improved. T-max today is 99.8 compared to 102 yesterday. The patient is feeling slightly better today. He is able to take a deep breath. He continues to have a cough, moderate intensity, not bringing up any sputum. Food does not taste that good. remains to be poor. No vomiting. No abdominal pain. Still having diarrhea. No blood or mucus in the stool. PHYSICAL EXAMINATION: Blood pressure 152/79, pulse of 85, temperature 98.8. He is 92% on 6 L nasal cannula. General description is a middle-aged male up in the bed in no distress. Respiratory system: Unlabored breathing, coarse breath sounds bilaterally. No wheeze. Heart: S1, S2. Regular rate and rhythm. Abdomen: Soft, no tenderness. LABS: Hemoglobin 13.1, white count 7.42, BUN of 16, creatinine 0.5. DIAGNOSTIC IMPRESSION AND PLAN: Patient with acute COVID-19 pneumonia. Patient did have minimal clinical improvement yesterday. He will continue with Remdesivir, dexamethasone, Lovenox, zinc, and respiratory support and monitor clinical course closely. Prognosis remains to be guarded. Continue supportive care. MMODL / IJN: [id number] /
--- NOTE | 2020-09-04 19:29 | PN ---
PROGRESS NOTE DATE OF SERVICE: 09/04/2020 This 65-year-old gentleman who was admitted with acute Covid 19 pneumonia, had significant hypoxia last night. The patient has to be bumped up on 7 L nasal cannula. Patient had bilateral persistent lung lesions. Patient is extremely short of breath. The patient has also been receiving Remdesivir and other medications also. PAST MEDICAL HISTORY: Reviewed. REVIEW OF SYSTEMS: Cardiovascular: As mentioned earlier. Respiration as mentioned earlier. GI: As mentioned earlier. : No dysuria. CURRENT MEDICATIONS: Reviewed and include: Tylenol, Ventolin, aspirin, vitamin D3, Hexadrol, Lovenox and Remdesivir. PHYSICAL EXAMINATION: Patient is alert, oriented. Pulse is 85. Blood pressure 150/70. Respirations 20. Temperature 99.8, pulse ox 92% on 6 L. HEENT: Conjunctivae normal. Neck: No JVD. Cardiovascular: S1, S2 muffled. Respiration: Breath sounds diminished in the bases. Bilateral scattered rhonchi and crackles. Abdomen: Soft, nontender. Legs are no edema. No swelling. Nervous system: No focal deficits. LABS: D-dimer is 1.21. Otherwise, CRP is 9.6, procalcitonin 0.16. Covid 19 positive. ASSESSMENT: 1. Acute Covid 19 infection with acute bilateral interstitial pneumonia with acute hypoxic respiratory failure. 2. Possible acute bacterial pneumonia superadded. 3. Elevated procalcitonin. 4. Continued fever. 5. Thrombocytopenia. 6. Elevated D-dimer without any evidence of acute pulmonary embolism. 7. Elevated inflammatory markers of Covid 19. 8. Hypokalemia. 9. Elevated random glucose. 10.Hypercalcemia. 11.Elevated AST/ALT, possibly hepatitis secondary to Covid 19. 12.Elevated CRP. 13.History of cholecystectomy. 14.Obesity, body mass index of 32. 15.FULL CODE. RECOMMENDATIONS AND DISCUSSION: Continue current medications, management and symptomatic treatment. Continue the bronchodilators. Continue with Remdesivir. We will discuss with Dr. Spaulding whether the patient will be a candidate for Actemra because of the lack of significant improvement. We will continue to monitor. Prognosis guarded. MMODL / IJN: [id number] / MTDD
[2020-09-04] MEDS: MELATONIN 5 MG TABLET PO SCH (20:34)
[2020-09-04] MEDS: ASPIRIN 81 MG PO SCH (20:34)
[2020-09-05] MEDS: ACETAMINOPHEN TAB 325 MG TAB PO PRN (02:45)
[2020-09-05] MEDS: ALBUTEROL HFA INHALER INHALATION SCH ×3 (07:15→19:11)
[2020-09-05] MEDS ORDERED: Potassium Replacement Protocol 1 EACH MISC MISCELLANE PRN (08:50)
[2020-09-05] MEDS: ZINC SULFATE 220 MG CAP PO SCH (08:52)
[2020-09-05] MEDS: ASCORBIC ACID 500 MG TAB PO SCH (08:52)
[2020-09-05] MEDS: CHOLECALCIFEROL 25 MCG (1000 IU) TABLET PO SCH (08:52)
[2020-09-05] MEDS: ENOXAPARIN 40 MG/0.4 ML SYRINGE SQ SCH (08:52)
[2020-09-05] MEDS: dexAMETHasone 2 MG TAB PO SCH (08:52)
[2020-09-05] MEDS: POTASSIUM CHLORIDE ER 20 MEQ TAB.ER PO SCH ×2 (08:53→12:34)
[2020-09-05] MEDS ORDERED: FUROSEMIDE 10 MG/ML 4 ML VIAL IV STA (11:13)
--- NOTE | 2020-09-05 12:28 | P.PN ---
Subjective Progress Note Date: 09/05/20 This is a 65-year-old white male patient who resides in [place], [place], and is currently in [place] visiting his daughter, presented to the emergency department on 09/01/2020 for evaluation of one week's worth of symptoms of a respiratory illness. Patient states that his symptoms include cough, fever, shortness of breath, loss of taste, generalized weakness, body aches, and diarrhea. He stated that he bought COVID 19 test kit at [facility] on 08/29/2020 which was reportedly positive. He states his is also sick with COVID-19, however not requiring hospitalization. Patient was staying [place] campground with his family, and he stated he was not wearing a mask. He denies any obvious sick contacts. However he was not vaccinated for COVID-19. Denies any major medical history, patient is a lifetime nonsmoker, his had a previous history of cholecystectomy, denies any history of diabetes. Home medications include melatonin and a baby aspirin at bedtime. His chest x-ray on admission showed patchy airspace disease bilaterally. Patient was febrile on presentation with temp of 101.1F. He was placed on supplemental oxygen, currently requiring 3 L of oxygen a pulse ox of 92%, his rapid COVID-19 test in the [facility] was negative, influenza and RSV screen were also negative. Admission laboratory showed a white blood cell count 5.7, hemoglobin of 15.4, platelet count was 121, lymphocyte count was 0.6, d-dimer was 0.71, potassium is 3.0, sodium is 138, CO2 is 33, BUN is 16 creatinine 0.63, plasma lactic acid was 1.1, his AST and ALT were elevated at 114 and 1 await respectively, alkaline phosphatase is 68, CRP is 14.6, pro calcitonin level was negative at 0.16. Urinalysis but elevated u rine specific gravity of greater than 1.050, 3+ protein, and 1+ ketone, but no clear evidence of infection. Initially patient was started on azithromycin and Rocephin which has since been discontinued in view of negative pro calcitonin, Decadron was added at 6 mg daily dose, patient was placed on Lovenox for DVT prophylaxis, he was started on multivitamins including vitamin D, zinc, and vitamin C. CTA chest showed no evidence of pulmonary embolism, it did show patchy bilateral pulmonary infiltrates consistent with multifocal pneumonia. No pleural fluid seen to suggest heart failure. On 09/03/2020 patient seen in follow-up on medical surgical floor, he is awake, he is resting in bed, looks fatigued, still having some low-grade fevers, with a T-max of 100.1F early this morning, he is on 4 L of oxygen pulse ox is 93%, hemodynamically stable, denies any chest discomfort, has occasional dry cough. Today is day 2 of Remdesivir, remains on Decadron 6 mg daily, remains on the vitamins, prophylactic Lovenox, Rocephin was restarted however 2 sets of pro calcitonin came back low at 0.16, suggesting absence of bacterial infection. His appetite is quite poor, he has 0.9 normal saline infusing at 20 ML per hour, he still having some diarrhea. On 09/04/2020 patient seen in follow-up on medical surgical floor, his oxygen requirements have increased and patient is currently on 7 L of oxygen up from 4 L of oxygen yesterday, his pulse ox is 90-92%, has occasional dry nonproductive cough, he is feeling weak, appetite is poor. No chest discomfort, he did have a fever 102.8F yesterday in the afternoon, overnight his fever pattern has been improved, and distal low-grade temp at this morning with a temp of 99.7F, today is day 3 of Remdesivir, he continues on Decadron, prophylactic Lovenox, and multivitamins. His send out PCR test for COVID-19 is still pending. Today's labs have been reviewed, white blood cell count is 7.42, hemoglobin is 13.9, d- dimer is 1.21, sodium is 141, potassium is 4.9, BUN is 16, creatinine 0.5. His LDH is 550, his Legionella urine antigen was negative. Just had one bowel movement in the last 24 hours. Patient is voiding. Chest x-ray shows moderate to marked diffuse patchy opacities. May be slightly worsened compared admission chest x-ray. The patient is seen today 09/05/2020 in follow-up on the regular medical floor. He is currently resting comfortably in bed. Awake and alert in no acute distress. He is maintaining O2 saturations in the 90s on 6 L high flow nasal cannula. He did have a temp of 100.6 early this morning but is currently afebrile. Hemodynamically stable. Still with some dyspnea on minimal exertion. Sputum culture pending. No chest x-ray today. No new labs today. This is day #4 of Remdesivir. He remains on Lovenox, Decadron, vitamin supplements. Objective - Vital Signs Vital signs: Vital Signs Temp 98.9 F 09/05/20 06:00 Pulse 86 09/05/20 07:45 Resp 16 09/05/20 07:45 BP 150/90 09/05/20 06:00 Pulse Ox 92 L 09/05/20 06:00 Intake & Output 09/04/20 09/05/20 09/05/20 18:59 06:59 18:59 Intake Total 1979 Balance 1979 Weight 89.993 kg Intake: Intake, IV Titration 900 Amount Sodium Chloride 0.9% 1, 900 000 ml @ 75 mls/hr IV . [id number] SABRINA Rx#:[id number] Oral 1080 Other: # Voids 3 3 - Exam GENERAL EXAM: Alert, active, 65-year-old gentleman, on 6 L high flow nasal cannula, fairly comfortable in no apparent distress. HEAD: Normocephalic. EYES: Normal reaction of pupils, equal size. NOSE: Clear with pink turbinates. THROAT: No erythema or exudates. NECK: No masses, no JVD. CHEST: No chest wall deformity. LUNGS: Equal air entry with crackles in the bilateral bases. CVS: S1 and S2 normal with no audible murmur, regular rhythm. ABDOMEN: No hepatosplenomegaly, normal bowel sounds, no guarding or rigidity. SPINE: No scoliosis or deformity SKIN: No rashes CENTRAL NERVOUS SYSTEM: No focal deficits, tone is normal in all 4 extremities. EXTREMITIES: There is no peripheral edema. No clubbing, no cyanosis. Peripheral pulses are intact. - Labs CBC & Chem 7: 09/04/20 06:37 09/04/20 06:37 Labs: Abnormal Lab Results - Last 24 Hours (Table) 09/02/20 Range/Units 20:45 Coronavirus (PCR) Detected A (Not Detected) Microbiology - Last 24 Hours (Table) 09/04/20 08:28 Gram Stain - Preliminary Sputum Sputum Culture - Preliminary Kaylin albicans 09/01/20 17:06 Blood Culture - Preliminary Blood No Growth after 72 hours Assessment and Plan Assessment: 1 Acute hypoxic respiratory failure, related to what appears to be COVID-19 related to pneumonia. Patient tested positive with a COVID-19 self-test on 08/29/2020. Not vaccinated. Onset of symptoms is one week ago, on 08/26/2020. Started on the Remdesivir on 09/02/2020 2 Dehydration related to diarrhea related to COVID-19 infection, receiving IV hydration 3 Cough, fever, shortness of breath related to COVID-19 pneumonia 4 Elevated d-dimer, with no CTA evidence of pulmonary embolism 5 Lifetime nonsmoker 6 History of cholecystectomy Plan: The patient was seen and evaluated by Dr. Montilla Lasix 40 mg IVP 1 today, IVs to KVO Repeat chest x-ray and labs in the a.m. Titrate the FiO2 as tolerated Day #4 Remdesivir Continued on Decadron, Lovenox, vitamin supplements We will continue to follow I, the cosigning physician, performed a history & physical examination of the patient. Lungs sounds with crackles in the bilateral bases. Maintaining good O2 saturations in the 90s on 6 L high flow nasal cannula. I discussed the assessment and plan of care with my nurse practitioner, Anabelle Carbone. I attest to the above note as dictated by her.
[2020-09-05] MEDS: REMDESIVIR 100 MG in SODIUM CHLORIDE 0.9% 250 ML IVPB SCH (12:33)
--- NOTE | 2020-09-05 19:38 | PN ---
PROGRESS NOTE DATE OF SERVICE: 09/05/2020 REASON FOR FOLLOWUP: COVID-19 pneumonia. INTERVAL HISTORY: Patient did have a fever this morning 100.3. The patient is afebrile since then. The patient is breathing comfortably. The patient overall cough has decreased in intensity with some sputum production. No hemoptysis. No nausea, no vomiting. No abdominal pain. No diarrhea. PHYSICAL EXAMINATION: Blood pressure is 150/90 with a pulse of 83, temperature 98.9. He is 92% on 6 L nasal cannula. General description is a middle-aged male up in the chair in no distress. Respiratory system: Unlabored breathing. Crackles at the bases bilaterally. Heart S1- S2 regular rate and rhythm. Abdomen: Soft, no tenderness. Extremities: No edema of the feet. LABS: No new labs have been obtained today. DIAGNOSTIC IMPRESSION AND PLAN: Patient with acute COVID-19 pneumonia in this patient currently covered with Remdesivir to continue along with dexamethasone, zinc and ascorbic acid. Clinically no evidence of any secondary bacterial pneumonia and we will monitor closely off antibiotic therapy. No need for any sputum more likely colonizer. MMODL / IJN: [id number] /
--- NOTE | 2020-09-05 19:54 | PN ---
PROGRESS NOTE DATE OF SERVICE: 09/05/2020 This 65-year-old gentleman admitted with bilateral pneumonia, COVID-19 pneumonia is on Remdesivir. No chest pain. No palpitations. No fever. Infectious Disease, Pulmonary following the patient closely. PHYSICAL EXAMINATION: Alert and oriented. Pulse 91, blood pressure 120/53, respiration 20, temperature 98.2, pulse ox 98% on 6 L. HEENT: Conjunctivae normal. NECK: Supple. No JVD. CARDIOVASCULAR: S1 and S2 muffled LUNGS: Breath sounds diminished at the bases. Few scattered rhonchi. ABDOMEN: Soft, nontender. LEGS: No edema. LAB: D-dimer is 1.21. Other labs are noted. ASSESSMENT: 1. Acute COVID-19 infection with acute bilateral interstitial pneumonia with acute hypoxic respiratory failure. 2. Elevated procalcitonin. 3. Continued fever. 4. Thrombocytopenia. 5. Elevated D-dimer without any evidence of acute pulmonary embolism. 6. Elevated inflammatory markers of COVID-19. 7. Hypokalemia. 8. Elevated random glucose. 9. Hypercalcemia. 10.Increased AST, ALT, possibly hepatitis secondary to COVID-19. 11.Elevated CRP. 12.History of cholecystectomy. 13.Obesity with body mass index of 32. 14.FULL CODE. RECOMMENDATIONS AND DISCUSSION: To continue current management and treatment. Recommend cultures. Closely monitor. Guarded prognosis. Further recommendations to follow. Urine Legionella is negative. MMODL / IJN: [id number] /
[2020-09-05] MEDS: MELATONIN 5 MG TABLET PO SCH (21:13)
[2020-09-05] MEDS: ASPIRIN 81 MG PO SCH (21:14)
[2020-09-05] MEDS: SODIUM CHLORIDE 0.9% 1,000 ML IV SCH ×3 (21:53→23:10)
[2020-09-06] MEDS ORDERED: guaiFENesin SYRUP 100MG/5ML 200 MG/10 ML CUP PO PRN (03:00)
[2020-09-06] MEDS ORDERED: BENZOCAINE/MENTHOL LOZENG 1 EACH LOZENGE MUCOUS MEM PRN (03:00)
[2020-09-06] MEDS ORDERED: guaiFENesin 600 MG TABLET.ER PO PRN (03:00)
[2020-09-06] MEDS: FLUTICASONE 50MCG/SPRAY NASAL 16GM EA NOSTRIL PRN (05:13)
[2020-09-06] MEDS: ALBUTEROL HFA INHALER INHALATION SCH ×3 (07:19→21:10)
[2020-09-06] MEDS: ENOXAPARIN 40 MG/0.4 ML SYRINGE SQ SCH ×2 (07:58→20:19)
[2020-09-06] MEDS: dexAMETHasone 2 MG TAB PO SCH ×2 (07:58→20:18)
[2020-09-06] MEDS: CHOLECALCIFEROL 25 MCG (1000 IU) TABLET PO SCH (07:58)
[2020-09-06] MEDS: ZINC SULFATE 220 MG CAP PO SCH (07:58)
[2020-09-06] MEDS: ASCORBIC ACID 500 MG TAB PO SCH (07:58)
--- NOTE | 2020-09-06 10:13 | XR ---
EXAMINATION TYPE: XR chest 1V portable DATE OF EXAM: 09/06/2020 COMPARISON: 09/04/2020 INDICATION: Covid TECHNIQUE: Single frontal view of the chest is obtained. FINDINGS: The heart size is normal. The pulmonary vasculature is normal. Diffuse scattered infiltrates are present bilaterally appears similar to comparison. Findings can be compatible with atypical pneumonia. IMPRESSION: 1. Diffuse scattered infiltrates bilaterally are stable over the interval. Findings are compatible wi th atypical pneumonia.
[2020-09-06] MEDS: guaiFENesin-DM 600/30MG 1 EACH TAB.ER.12H PO SCH ×2 (11:18→20:19)
[2020-09-06] MEDS ORDERED: TOCILIZUMAB 720 MG in SODIUM CHLORIDE 0.9% 64 ML IV ONE (11:30)
--- NOTE | 2020-09-06 11:33 | P.PN ---
Subjective Progress Note Date: 09/06/20 This is a 65-year-old white male patient who resides in [place], [place], and is currently in [place] visiting his daughter, presented to the emergency department on 09/01/2020 for evaluation of one week's worth of symptoms of a respiratory illness. Patient states that his symptoms include cough, fever, shortness of breath, loss of taste, generalized weakness, body aches, and diarrhea. He stated that he bought COVID 19 test kit at [facility] on 08/29/2020 which was reportedly positive. He states his is also sick with COVID-19, however not requiring hospitalization. Patient was staying [place] a campground with his family, and he stated he was not wearing a mask. He denies any obvious sick contacts. However he was not vaccinated for COVID-19. Denies any major medical history, patient is a lifetime nonsmoker, his had a previous history of cholecystectomy, denies any history of diabetes. Home medications include melatonin and a baby aspirin at bedtime. His chest x-ray on admission showed patchy airspace disease bilaterally. Patient was febrile on presentation with temp of 101.1F. He was placed on supplemental oxygen, currently requiring 3 L of oxygen a pulse ox of 92%, his rapid COVID-19 test in the [facility] was negative, influenza and RSV screen were also negative. Admission laboratory showed a white blood cell count 5.7, hemoglobin of 15.4, platelet count was 121, lymphocyte count was 0.6, d-dimer was 0.71, potassium is 3.0, sodium is 138, CO2 is 33, BUN is 16 creatinine 0.63, plasma lactic acid was 1.1, his AST and ALT were elevated at 114 and 1 await respectively, alkaline phosphatase is 68, CRP is 14.6, pro calcitonin level was negative at 0.16. Urinalysis but elevated u rine specific gravity of greater than 1.050, 3+ protein, and 1+ ketone, but no clear evidence of infection. Initially patient was started on azithromycin and Rocephin which has since been discontinued in view of negative pro calcitonin, Decadron was added at 6 mg daily dose, patient was placed on Lovenox for DVT prophylaxis, he was started on multivitamins including vitamin D, zinc, and vitamin C. CTA chest showed no evidence of pulmonary embolism, it did show patchy bilateral pulmonary infiltrates consistent with multifocal pneumonia. No pleural fluid seen to suggest heart failure. On 09/03/2020 patient seen in follow-up on medical surgical floor, he is awake, he is resting in bed, looks fatigued, still having some low-grade fevers, with a T-max of 100.1F early this morning, he is on 4 L of oxygen pulse ox is 93%, hemodynamically stable, denies any chest discomfort, has occasional dry cough. Today is day 2 of Remdesivir, remains on Decadron 6 mg daily, remains on the vitamins, prophylactic Lovenox, Rocephin was restarted however 2 sets of pro calcitonin came back low at 0.16, suggesting absence of bacterial infection. His appetite is quite poor, he has 0.9 normal saline infusing at 20 ML per hour, he still having some diarrhea. On 09/04/2020 patient seen in follow-up on medical surgical floor, his oxygen requirements have increased and patient is currently on 7 L of oxygen up from 4 L of oxygen yesterday, his pulse ox is 90-92%, has occasional dry nonproductive cough, he is feeling weak, appetite is poor. No chest discomfort, he did have a fever 102.8F yesterday in the afternoon, overnight his fever pattern has been improved, and distal low-grade temp at this morning with a temp of 99.7F, today is day 3 of Remdesivir, he continues on Decadron, prophylactic Lovenox, and multivitamins. His send out PCR test for COVID-19 is still pending. Today's labs have been reviewed, white blood cell count is 7.42, hemoglobin is 13.9, d- dimer is 1.21, sodium is 141, potassium is 4.9, BUN is 16, creatinine 0.5. His LDH is 550, his Legionella urine antigen was negative. Just had one bowel movement in the last 24 hours. Patient is voiding. Chest x-ray shows moderate to marked diffuse patchy opacities. May be slightly worsened compared admission chest x-ray. The patient is seen today 09/05/2020 in follow-up on the regular medical floor. He is currently resting comfortably in bed. Awake and alert in no acute distress. He is maintaining O2 saturations in the 90s on 6 L high flow nasal cannula. He did have a temp of 100.6 early this morning but is currently afebrile. Hemodynamically stable. Still with some dyspnea on minimal exertion. Sputum culture pending. No chest x-ray today. No new labs today. This is day #4 of Remdesivir. He remains on Lovenox, Decadron, vitamin supplements. The patient seen today 09/06/2020 in follow-up on the regular medical floor. He is currently sitting up in a chair at the bedside. Awake and alert in no acute distress. His oxygen requirements have gone up however he is on 15 L high flow nasal cannula to maintain O2 saturation 88-92%. Chest x-ray continues to show bilateral patchy infiltrates bilaterally. This is day #5 of his Remdesivir. He remains on Decadron 6 mg daily, Lovenox 40 mg daily, vitamin supplements. D- dimer 1.9 to today. Objective - Vital Signs Vital signs: Vital Signs Temp 99.3 F 09/06/20 10:38 Pulse 95 09/06/20 10:38 Resp 19 09/06/20 10:38 BP 148/89 09/06/20 10:38 Pulse Ox 91 L 09/06/20 10:38 Intake & Output 09/05/20 09/06/20 09/06/20 18:59 06:59 18:59 Other: # Voids 3 1 # Bowel Movements 2 - Exam GENERAL EXAM: Alert, active, 65-year-old gentleman, on 15 L high flow nasal cannula, fairly comfortable in no apparent distress. HEAD: Normocephalic. EYES: Normal reaction of pupils, equal size. NOSE: Clear with pink turbinates. THROAT: No erythema or exudates. NECK: No masses, no JVD. CHEST: No chest wall deformity. LUNGS: Equal air entry with crackles in the bilateral bases. CVS: S1 and S2 normal with no audible murmur, regular rhythm. ABDOMEN: No hepatosplenomegaly, normal bowel sounds, no guarding or rigidity. SPINE: No scoliosis or deformity SKIN: No rashes CENTRAL NERVOUS SYSTEM: No focal deficits, tone is normal in all 4 extremities. EXTREMITIES: There is no peripheral edema. No clubbing, no cyanosis. Peripheral pulses are intact. - Labs CBC & Chem 7: 09/04/20 06:37 09/04/20 06:37 Labs: Abnormal Lab Results - Last 24 Hours (Table) 09/06/20 Range/Units 07:09 D-Dimer 1.92 H (<0.60) mg/L FEU Microbiology - Last 24 Hours (Table) 09/01/20 17:06 Blood Culture - Preliminary Blood No Growth after 96 hours 09/04/20 08:28 Gram Stain - Preliminary Sputum Sputum Culture - Preliminary Kaylin albicans Assessment and Plan Assessment: 1 Acute hypoxic respiratory failure, related to what appears to be COVID-19 related to pneumonia. Patient tested positive with a COVID-19 self-test on 08/29/2020. Not vaccinated. Onset of symptoms is one week ago, on 08/26/2020. Started on Remdesivir on 09/02/2020. His oxygen requirements have continued to climb and is currently on 15 L high flow nasal cannula. Ordered Tocilizumab today 09/06/2020. 2 Dehydration related to diarrhea related to COVID-19 infection, improved 3 Cough, fever, shortness of breath related to COVID-19 pneumonia 4 Elevated d-dimer, with no CTA evidence of pulmonary embolism 5 Lifetime nonsmoker 6 History of cholecystectomy Plan: The patient was seen and evaluated by Dr. Montilla Chest x-ray and labs reviewed Oxygen requirements up to 15 L high flow nasal cannula May need to transition to AirVo 30+ L and titrate FiO2 Add Tocilizumab Day #5 Remdesivir Increase Decadron 6 mg twice a day Increase Lovenox to 40 mg twice a day Continue vitamin supplements We will continue to follow I, the cosigning physician, performed a history & physical examination of the patient. Lungs sounds with crackles in the bilateral bases. Maintaining good O2 saturations in the 90s on 15 L high flow nasal cannula. I discussed the assessment and plan of care with my nurse practitioner, Anabelle Carbone. I attest to the above note as dictated by her.
[2020-09-06 11:45] LABS: HCT 40.7 % (39.6-50.0); HGB 13.3 g/dL (13.0-17.0); MCH 28.1 pg (27.0-32.0); MCHC 32.7 g/dL (32.0-37.0); Mean Platelet Volume 9.5 fL (9.5-12.2); Platelet Count 314 X 10*3/uL (140-440); RBC 4.73 X 10*6/uL (4.40-5.60); RDW 14.3 % (11.5-14.5); WBC 8.94 X 10*3/uL (4.50-10.00)
[2020-09-06 12:27] LABS: C Reactive Protein 13.9 mg/dL (0.0-0.8)
[2020-09-06] MEDS: REMDESIVIR 100 MG in SODIUM CHLORIDE 0.9% 250 ML IVPB SCH (12:33)
[2020-09-06 14:03] LABS: Basophils # (A) 0.02 X 10*3/uL (0.00-0.10); Basophils % (A) 0.2 %; Eosinophils # (A) 0.01 X 10*3/uL (0.04-0.35); Eosinophils % (A) 0.1 %; Lymphocytes # (A) 0.71 X 10*3/uL (0.90-5.00); Lymphocytes % (A) 7.9 %; Monocytes # (A) 0.65 X 10*3/uL (0.20-1.00); Monocytes % (A) 7.3 %; Neutrophils # (A) 7.48 X 10*3/uL (1.80-7.70); Neutrophils % (A) 83.7 %
[2020-09-06 15:21] LABS: Albumin 3.3 g/dL (3.80-4.90); Albumin/Globulin Ratio 1.27 (1.60-3.17); Anion Gap 16.3 mmol/L (4.00-12.00); Calcium 8.2 mg/dL (8.7-10.3); Carbon Dioxide 26.7 mmol/L (21.6-31.8); Globulin 2.6 g/dL (1.6-3.3); Potassium 3.2 mmol/L (3.5-5.5); Total Bilirubin 0.9 mg/dL (0.3-1.2); Total Protein 5.9 g/dL (6.2-8.2)
[2020-09-06] MEDS: SODIUM CHLORIDE 0.9% 1,000 ML IV SCH (15:31)
--- NOTE | 2020-09-06 17:42 | PN ---
PROGRESS NOTE DATE OF SERVICE: 09/06/2020 REASON FOR FOLLOWUP: COVID-19 pneumonia. INTERVAL HISTORY: Patient did have worsening of his respiratory status this morning. He was hypoxic. FiO2 has been marked up to 15 L high-flow. The patient is afebrile, though hemodynamically stable. Did mention he is breathing a bit more easily. Cough has decreased intensity, mostly dry in nature. No nausea, no vomiting. No abdominal pain or diarrhea. PHYSICAL EXAMINATION: Blood pressure 133/81 with pulse of 83, temperature 99.2. He is 91% on 15 L high-flow oxygen. General description is a middle-aged male up in the chair in no distress. Respiratory system unlabored breathing, decreased breath sounds. Heart S1-S2 regular abdomen. LABS: Hemoglobin is 13.4. D-dimer 1.92. LDH was elevated at 531, ALT 13.9. IMPRESSION/PLAN: Patient with COVID-19 pneumonia with slight worsening of his respiratory status. has been given this morning, we will see response to it. Continue supportive care. Prognosis remains to be extremely guarded. MMODL / IJN: [id number] /
[2020-09-06] MEDS: FLUCONAZOLE IN NACL,ISO-OSM 200 MG in SALINE 1 100ML.BAG IVPB SCH (20:18)
[2020-09-06] MEDS: ASPIRIN 81 MG PO SCH (20:18)
[2020-09-06] MEDS: MELATONIN 5 MG TABLET PO SCH (20:18)
--- NOTE | 2020-09-06 21:37 | PN ---
PROGRESS NOTE DATE OF SERVICE: 09/06/2020 This 65-year-old gentleman who was admitted with acute COVID-19 pneumonia also dose of Actemra. The current dose is being finished just today. The patient is on significant amount of oxygen. The patient was hypoxic. The most recent chest x-ray, which was reviewed personally by me, showed evidence of bilateral diffuse lesions consistent with COVID-19 pneumonia. PHYSICAL EXAMINATION: Alert and oriented. Pulse 86, blood pressure 140/90, respiration 18, temperature 97.4, pulse ox 98% on 15 L nasal cannula. CARDIOVASCULAR: S1, S2 muffled. RESPIRATION: Breath sounds diminished at the bases, scattered rhonchi and crackles. ABDOMEN: Soft, nontender. LEGS: Are no edema. No swelling. NERVOUS SYSTEM: No focal deficits. LABS: C-reactive protein is 13.9, and D-dimer is 1.92. The sputum culture showed Kaylin albicans. ASSESSMENT: 1. Acute COVID-19 infection with acute bilateral interstitial pneumonia with acute hypoxic respiratory failure. 2. Elevated procalcitonin. 3. Continued fever. 4. Kaylin albicans from the sputum. 5. Thrombocytopenia. 6. Elevated D-dimer. D-dimer without any evidence of acute pulmonary embolism. 7. Elevated inflammatory markers of COVID-19. 8. Hypokalemia. 9. Elevated random glucose. 10.Hypocalcemia. 11.Increased AST, ALT, possibly hepatitis secondary to COVID-19. 12.Elevated CRP. 13.History of cholecystectomy. 14.Obesity with body mass index of 32. 15.FULL CODE. RECOMMENDATIONS AND DISCUSSION: Continue current medical management and treatment. Otherwise, at this time I recommend repeat labs and add Diflucan to the current regimen. Otherwise, guarded prognosis. Further recommendations to follow. Closely follow with Infectious Disease, as well as Pulmonary. MMODL / IJN: [id number] /
[2020-09-07] MEDS: FLUTICASONE 50MCG/SPRAY NASAL 16GM EA NOSTRIL PRN (05:53)
[2020-09-07] MEDS: ALBUTEROL HFA INHALER INHALATION SCH ×3 (08:04→21:52)
[2020-09-07 08:27] LABS: Glucose,Whole Blood 117 mg/dL (75-99)
[2020-09-07] MEDS ORDERED: FUROSEMIDE 10 MG/ML 4 ML VIAL IV STA (08:33)
[2020-09-07] MEDS: dexAMETHasone 2 MG TAB PO SCH ×2 (08:40→20:57)
[2020-09-07] MEDS: CHOLECALCIFEROL 25 MCG (1000 IU) TABLET PO SCH (08:40)
[2020-09-07] MEDS: ASCORBIC ACID 500 MG TAB PO SCH (08:40)
[2020-09-07] MEDS: ENOXAPARIN 40 MG/0.4 ML SYRINGE SQ SCH ×2 (08:41→20:58)
[2020-09-07] MEDS: ZINC SULFATE 220 MG CAP PO SCH (08:44)
--- NOTE | 2020-09-07 10:05 | XR ---
EXAMINATION TYPE: XR chest 1V portable DATE OF EXAM: 09/07/2020 COMPARISON: 09/06/2020 INDICATION: : Pneumonia TECHNIQUE: Single frontal view of the chest is obtained. FINDINGS: The heart size is normal. The pulmonary vasculature is indistinct. Patchy consolidations are present bilaterally. Findings appear worsened over the interval. IMPRESSION: 1. Worsening bilateral lung consolidations.
[2020-09-07] MEDS: guaiFENesin-DM 600/30MG 1 EACH TAB.ER.12H PO SCH ×2 (10:31→21:57)
[2020-09-07 11:23] LABS: HCT 44.9 % (39.0-53.0); HGB 14.9 gm/dL (13.0-17.5); MCH 28.7 pg (25.0-35.0); MCHC 33.1 g/dL (31.0-37.0); MCV 86.6 fL (80.0-100.0); Mean Platelet Volume 6.6; RBC 5.18 m/uL (4.30-5.90); RDW 13.8 % (11.5-15.5); WBC 7.2 k/uL (3.8-10.6)
[2020-09-07 11:33] LABS: African American GFR (CKD) >90 (>60 ml/min/1.73 sqM); Anion Gap 8 mmol/L; Blood Urea Nitrogen 22 mg/dL (9-20); Calcium 8.5 mg/dL (8.4-10.2); Carbon Dioxide 38 mmol/L (22-30); Chloride 92 mmol/L (98-107); Glucose 127 mg/dL (74-99); Non-African American GFR(CKD) >90 (>60 ml/min/1.73 sqM); Sodium 138 mmol/L (137-145)
[2020-09-07 11:42] LABS: Platelet Count 422 k/uL (150-450)
--- NOTE | 2020-09-07 11:42 | P.PN ---
Subjective Progress Note Date: 09/07/20 Principal diagnosis: Acute hypoxic respiratory failure secondary to COVID-19 pneumonia. This is a 65-year-old white male patient who resides in [place], [place], and is currently in [place] visiting his daughter, presented to the emergency department on 09/01/2020 for evaluation of one week's worth of symptoms of a respiratory illness. Patient states that his symptoms include cough, fever, shortness of breath, loss of taste, generalized weakness, body aches, and diarrhea. He stated that he bought COVID 19 test kit at [facility] on 08/29/2020 which was reportedly positive. He states his is also sick with COVID-19, however not requiring hospitalization. [place], and he stated he was not wearing a mask. He denies any obvious sick contacts. However he was not vaccinated for COVID-19. Denies any major medical history, patient is a lifetime nonsmoker, his had a previous history of cholecystectomy, denies any history of diabetes. Home medications include melatonin and a baby aspirin at bedtime. His chest x-ray on admission showed patchy airspace disease bilaterally. Patient was febrile on presentation with temp of 101.1F. He was placed on supplemental oxygen, currently requiring 3 L of oxygen a pulse ox of 92%, his rapid COVID-19 test in the [facility] was negative, influenza and RSV screen were also negative. Admission laboratory showed a white blood cell count 5.7, hemoglobin of 15.4, platelet count was 121, l ymphocyte count was 0.6, d-dimer was 0.71, potassium is 3.0, sodium is 138, CO2 is 33, BUN is 16 creatinine 0.63, plasma lactic acid was 1.1, his AST and ALT were elevated at 114 and 1 await respectively, alkaline phosphatase is 68, CRP is 14.6, pro calcitonin level was negative at 0.16. Urinalysis but elevated urine specific gravity of greater than 1.050, 3+ protein, and 1+ ketone, but no clear evidence of infection. Initially patient was started on azithromycin and Rocephin which has since been discontinued in view of negative pro calcitonin, Decadron was added at 6 mg daily dose, patient was placed on Lovenox for DVT prophylaxis, he was started on multivitamins including vitamin D, zinc, and vitamin C. CTA chest showed no evidence of pulmonary embolism, it did show patchy bilateral pulmonary infiltrates consistent with multifocal pneumonia. No pleural fluid seen to suggest heart failure. On 09/03/2020 patient seen in follow-up on medical surgical floor, he is awake, he is resting in bed, looks fatigued, still having some low-grade fevers, with a T-max of 100.1F early this morning, he is on 4 L of oxygen pulse ox is 93%, hemodynamically stable, denies any chest discomfort, has occasional dry cough. Today is day 2 of Remdesivir, remains on Decadron 6 mg daily, remains on the vitamins, prophylactic Lovenox, Rocephin was restarted however 2 sets of pro calcitonin came back low at 0.16, suggesting absence of bacterial infection. His appetite is quite poor, he has 0.9 normal saline infusing at 20 ML per hour, he still having some diarrhea. On 09/04/2020 patient seen in follow-up on medical surgical floor, his oxygen requirements have increased and patient is currently on 7 L of oxygen up from 4 L of oxygen yesterday, his pulse ox is 90-92%, has occasional dry nonproductive cough, he is feeling weak, appetite is poor. No chest discomfort, he did have a fever 102.8F yesterday in the afternoon, overnight his fever pattern has been improved, and distal low-grade temp at this morning with a temp of 99.7F, today is day 3 of Remdesivir, he continues on Decadron, prophylactic Lovenox, and multivitamins. His send out PCR test for COVID-19 is still pending. Today's labs have been reviewed, white blood cell count is 7.42, hemoglobin is 13.9, d- dimer is 1.21, sodium is 141, potassium is 4.9, BUN is 16, creatinine 0.5. His LDH is 550, his Legionella urine antigen was negative. Just had one bowel movement in the last 24 hours. Patient is voiding. Chest x-ray shows moderate to marked diffuse patchy opacities. May be slightly worsened compared admission chest x-ray. The patient is seen today 09/05/2020 in follow-up on the regular medical floor. He is currently resting comfortably in bed. Awake and alert in no acute distress. He is maintaining O2 saturations in the 90s on 6 L high flow nasal cannula. He did have a temp of 100.6 early this morning but is currently afebrile. Hemodynamically stable. Still with some dyspnea on minimal exertion. Sputum culture pending. No chest x-ray today. No new labs today. This is day #4 of Remdesivir. He remains on Lovenox, Decadron, vitamin supplements. The patient seen today 09/06/2020 in follow-up on the regular medical floor. He is currently sitting up in a chair at the bedside. Awake and alert in no acute distress. His oxygen requirements have gone up however he is on 15 L high flow nasal cannula to maintain O2 saturation 88-92%. Chest x-ray continues to show bilateral patchy infiltrates bilaterally. This is day #5 of his Remdesivir. He remains on Decadron 6 mg daily, Lovenox 40 mg daily, vitamin supplements. D- dimer 1.9 to today. Reevaluated today on 09/07/2020, patient seems to be doing a bit worse, he required placement on a nonrebreather mask today, O2 saturation is in the low 90s. Patient felt congested and his 15 L high flow cannula was changed to a nonrebreather mask. Chest x-ray showed worsening infiltrates bilaterally. Patient received toci yesterday, he finished a full course of REM , he is on Decadron 6 mg twice a day, he is also on Lovenox 40 mg subcu twice a day. I did recommend a dose of Lasix today. Patient was transferred to the ICU mostly because of his worsening pulmonary status. Although I did discuss potential requirement for intubation mechanical ventilation, and the patient clearly stated to me that he would rather and not and up on mechanical ventilation. And he was very certain about this decision CBC is relatively normal today. D- dimer is 2.58. LDH is down a bit at 531 however his C-reactive protein is up to 13.9. Objective - Vital Signs Vital signs: Vital Signs Temp 98.1 F 09/07/20 06:00 Pulse 75 09/07/20 11:00 Resp 20 09/07/20 11:00 BP 127/87 09/07/20 11:00 Pulse Ox 95 09/07/20 11:00 Intake & Output 09/06/20 09/07/20 09/07/20 18:59 06:59 18:59 Intake Total 1180 Output Total 775 Balance 1180 -775 Weight 89.993 kg Intake: Intake, IV Titration 100 Amount Fluconazole in NaCl,Iso- 100 Osm 200 mg In Saline 1 100ml.bag @ 100 mls/hr IVPB Q24H SABRINA Rx#: [id number] Oral 1080 Output: Urine 775 Other: # Voids 3 3 # Bowel Movements 1 - Exam Physical Exam: Revealed a 65-year-old white male on a nonrebreather mask, in the ICU, does not seem to be in distress. He feels much better on a nonrebreather mask compared to 15 L high flow cannula. Patient was initially on 3 L nasal cannula on his first day of admission. Head: Atraumatic, normocephalic. HEENT:[Neck is supple.] [No neck masses.] [No thyromegaly.] [No JVD.] Moist mucous membranes. No stridor. Chest: [Symmetrical chest expansion, crackles at the bases bilaterally. Some rhonchi on forced expiratory maneuver noted. Cardiac Exam: [Normal S1 and S2, no S3 gallop, no murmur.] Abdomen: [Soft, nontender, no megaly, no rebound, no guarding, normal bowel sounds.] Extremities: [No clubbing, no edema, no cyanosis.] Neurological Exam: [No focal neurologic deficit.] Alert and oriented 3. Psychiatric: Normal mood affect and normal mental status examination. Skin: No rashes. Musculoskeletal no deformities and no limitation in range of motion. - Labs CBC & Chem 7: 09/06/20 07:09 09/05/20 17:35 Labs: Abnormal Lab Results - Last 24 Hours (Table) 09/05/20 09/06/20 09/06/20 Range/Units 17:35 07:09 07:09 Immature Gran # 0.07 H (0.00-0.04) X 10*3/uL Lymphocytes # 0.71 L (0.90-5.00) X 10*3/uL Eosinophils # 0.01 L (0.04-0.35) X 10*3/uL D-Dimer (<0.60) mg/L FEU Potassium 3.2 L (3.5-5.5) mmol/L Anion Gap 16.30 H (4.00-12.00) mmol/L BUN/Creatinine Ratio 25.00 H (12.00-20.00) Ratio Glucose 171 H (70-110) mg/dL POC Glucose (mg/dL) (75-99) mg/dL Calcium 8.2 L (8.7-10.3) mg/dL AST 90 H (14-35) U/L ALT 95 H (10-49) U/L Lactate Dehydrogenase 531 H (120-246) U/L C-Reactive Protein 13.9 H (0.0-0.8) mg/dL Total Protein 5.9 L (6.2-8.2) g/dL Albumin 3.30 L (3.80-4.90) g/dL Albumin/Globulin Ratio 1.27 L (1.60-3.17) g/dL 09/07/20 09/07/20 Range/Units 08:26 10:57 Immature Gran # (0.00-0.04) X 10*3/uL Lymphocytes # (0.90-5.00) X 10*3/uL Eosinophils # (0.04-0.35) X 10*3/uL D-Dimer 2.58 H (<0.60) mg/L FEU Potassium (3.5-5.5) mmol/L Anion Gap (4.00-12.00) mmol/L BUN/Creatinine Ratio (12.00-20.00) Ratio Glucose (70-110) mg/dL POC Glucose (mg/dL) 117 H (75-99) mg/dL Calcium (8.7-10.3) mg/dL AST (14-35) U/L ALT (10-49) U/L Lactate Dehydrogenase (120-246) U/L C-Reactive Protein (0.0-0.8) mg/dL Total Protein (6.2-8.2) g/dL Albumin (3.80-4.90) g/dL Albumin/Globulin Ratio (1.60-3.17) g/dL Microbiology - Last 24 Hours (Table) 09/06/20 15:20 Urine Culture - Preliminary Urine,Clean Catch 09/05/20 17:35 Blood Culture - Preliminary Blood No Growth after 24 hours 09/01/20 17:06 Blood Culture - Preliminary Blood No Growth after 120 hours 09/04/20 08:28 Gram Stain - Final Sputum Sputum Culture - Final Kaylin albicans Assessment and Plan Assessment: Impression: Acute hypoxic respiratory failure secondary to COVID-19 pneumonia Elevated d-dimer and inflammatory markers including LDH and C-reactive protein secondary to COVID-19 pneumonia Lifetime nonsmoker. History of cholecystectomy. Recommendation: I transferred the patient earlier today to the ICU. We'll continue to monitor the patient in the ICU for now. Patient received full course of remdesivir , and he also received actemra. Continue Decadron 6 mg by mouth twice a day. Continue Lovenox at 40 mg subcu twice a day. Titrate oxygen as tolerated maintaining O2 saturation above 89%. Continue to COVID-19 cocktail advised Discussed the issue of intubation again with the patient, and again he stated to me that he would rather and not go on mechanical ventilation Time with Patient: Less than 30
[2020-09-07] MEDS: POTASSIUM CHLORIDE ER 20 MEQ TAB.ER PO SCH ×4 (12:11→20:57)
[2020-09-07 12:37] LABS: Lymphocytes # (M) 0.65 k/uL (1.0-4.8); Monocytes # (M) 0.65 k/uL (0-1.0); Neutrophils % (M) 82 %; Nucleated Red Blood Cells 0 /100 WBC (0-0); Total Cells Counted 100
[2020-09-07 12:38] LABS: Anisocytosis (M) Present; Poikilocytosis (M) Present
--- NOTE | 2020-09-07 15:19 | PN ---
PROGRESS NOTE DATE OF SERVICE: 09/07/2020 REASON FOR FOLLOWUP: COVID-19 pneumonia. INTERVAL HISTORY: Patient did have worsening of his respiratory status and has been transferred to the ICU. Patient is currently on nonrebreather. The patient denies having any chest pain. No worsening breathing. Cough has decreased in intensity, dry in nature. No vomiting. No abdominal pain or diarrhea. PHYSICAL EXAMINATION: Blood pressure 133/86, pulse of 83, temperature 97.5. He is 95% on 100% nonrebreather. General description is a middle-aged male up in the chair in no distress. Respiratory system: Unlabored breathing, coarse breath sounds bilaterally. Heart S1, S2. Regular rate and rhythm. Abdomen is soft, no tenderness. LABS: Hemoglobin is 14.1, white count 10.2, BUN of 22, creatinine 0.65. CRP is 14. IMPRESSION/PLAN: Patient with acute respiratory failure, multifactorial in this patient who did have a COVID-19 pneumonia and has received Remdesivir, as well as Actemra. Slight worsening respiratory status. Inflammatory markers and procalcitonin will be repeated tomorrow. Sputum showing Kaylin albicans colonized and not a source of his worsening respiratory status. Continue with dexamethasone, zinc and ascorbic acid and monitor clinical course closely. Prognosis remains to be guarded. MMODL / IJN: [id number] / CARLY
[2020-09-07] MEDS: SODIUM CHLORIDE 0.9% 1,000 ML IV SCH (15:53)
--- NOTE | 2020-09-07 20:40 | PN ---
PROGRESS NOTE DATE OF SERVICE: 09/07/2020 This 65-year-old gentleman who was admitted with COVID-19 pneumonia, acute bilateral pneumonia, has taken a turn for the worse. The patient is on 15 L nasal cannula. Patient is on a nonrebreather mask at this time. The patient transferred to ICU. Patient closely monitored. Patient has received Remdesivir as well as Actemra. Multiple consultants are following the patient closely. Chest x-ray which was reviewed today showed extensive bilateral interstitial lesion suggestive of Covid 19 pneumonia. D-dimer is 2.58 and potassium is 3. Inflammatory markers of Covid 19 still elevated. No chest pain. No palpitations. No fever. PAST MEDICAL HISTORY: Reviewed. REVIEW OF SYSTEMS: CARDIOVASCULAR SYSTEM: No angina. Respiration: As mentioned earlier. GI: As mentioned earlier. : No dysuria. Nervous system: No numbness or weakness. CURRENT MEDICATIONS: Tylenol, Ventolin, vitamin C, aspirin, Cepacol, Hexadrol, Lovenox. Doses are reviewed. PHYSICAL EXAMINATION: Patient is alert, oriented x3. Pulse 81. Blood pressure 135/88, respiration 31, temperature 97.4, pulse ox 98% on 100% nonrebreather mask. HEENT: Conjunctival normal. Neck: No JVD. Cardiovascular: S1, S2. Respirations: Breath sounds diminished in the bases. A few scattered rhonchi and crackles. Abdomen: Soft. Nontender. Legs are no edema. No swelling. Nervous system: No focal deficits. LABS: WBC 7, hemoglobin 14.9. Sodium 138, potassium 3.4. The cultures showing Kaylin albicans from the sputum. ASSESSMENT: 1. Acute COVID-19 infection with acute bilateral interstitial pneumonia with acute hypoxic respiratory failure. 2. Elevated procalcitonin. 3. Continued fever. 4. Kaylin albicans from the sputum. 5. Thrombocytopenia. 6. Elevated D-dimer without any evidence of acute pulmonary embolism or deep vein thrombosis. 7. Elevated inflammatory markers of COVID-19. 8. Hypokalemia. 9. Elevated random glucose. 10.Hypocalcemia. 11.Increased AST/ALT possibly hepatitis secondary to Covid 90. 12.Elevated CRP. 13.History of cholecystectomy. 14.Obesity with body mass index of 32. 15.FULL CODE. RECOMMENDATIONS AND DISCUSSION: Recommend to continue current medications, continue to monitor. Symptomatic treatment. Otherwise, at this time, I recommend continue with steroids. Continue with Lovenox and continue with fluconazole. The patient has received her tocilizumab. Prognosis guarded because of multiple complex medical issues. Further recommendations to follow. MMODL / IJN: [id number] /
[2020-09-07] MEDS: FLUCONAZOLE IN NACL,ISO-OSM 200 MG in SALINE 1 100ML.BAG IVPB SCH (20:56)
[2020-09-07] MEDS: ASPIRIN 81 MG PO SCH (20:57)
[2020-09-07] MEDS: MELATONIN 5 MG TABLET PO SCH (20:57)
[2020-09-07 21:14] LABS: Glucose,Whole Blood 138 mg/dL (75-99)
[2020-09-08 04:13] LABS: African American GFR (CKD) >90 (>60 ml/min/1.73 sqM); Anion Gap 6 mmol/L; Blood Urea Nitrogen 26 mg/dL (9-20); C Reactive Protein 5.8 mg/dL (<1.0); Calcium 8.4 mg/dL (8.4-10.2); Carbon Dioxide 37 mmol/L (22-30); Chloride 96 mmol/L (98-107); Glucose 141 mg/dL (74-99); Non-African American GFR(CKD) >90 (>60 ml/min/1.73 sqM); Potassium 3.5 mmol/L (3.5-5.1); Sodium 139 mmol/L (137-145)
[2020-09-08 04:28] LABS: HCT 45.5 % (39.0-53.0); HGB 14.6 gm/dL (13.0-17.5); MCH 28.3 pg (25.0-35.0); MCHC 32.1 g/dL (31.0-37.0); Platelet Count 427 k/uL (150-450); RBC 5.17 m/uL (4.30-5.90); WBC 7.5 k/uL (3.8-10.6)
[2020-09-08 04:53] LABS: Lymphocytes # (M) 0.68 k/uL (1.0-4.8); Monocytes # (M) 0.75 k/uL (0-1.0); Neutrophils # (M) 6.08 k/uL (1.3-7.7); Neutrophils % (M) 81 %; Nucleated Red Blood Cells 0 /100 WBC (0-0); Total Cells Counted 100
[2020-09-08] MEDS: POTASSIUM CHLORIDE ER 20 MEQ TAB.ER PO SCH ×2 (06:04→08:41)
--- NOTE | 2020-09-08 08:21 | XR ---
EXAMINATION TYPE: XR chest 1V portable DATE OF EXAM: 09/08/2020 COMPARISON: Chest x-ray 09/07/2020 HISTORY: Abnormal chest x-ray TECHNIQUE: Single frontal view of the chest is obtained. FINDINGS: Bilateral airspace disease persists. No evident pneumothorax or pleural effusion. Cardiac mediastinal silhouette is unchanged. IMPRESSION: Correlate for pneumonia.
[2020-09-08] MEDS: dexAMETHasone 2 MG TAB PO SCH ×2 (08:41→20:39)
[2020-09-08] MEDS: guaiFENesin-DM 600/30MG 1 EACH TAB.ER.12H PO SCH ×2 (08:41→20:39)
[2020-09-08] MEDS: ENOXAPARIN 40 MG/0.4 ML SYRINGE SQ SCH ×2 (08:41→20:39)
[2020-09-08] MEDS: ZINC SULFATE 220 MG CAP PO SCH (08:41)
[2020-09-08] MEDS: CHOLECALCIFEROL 25 MCG (1000 IU) TABLET PO SCH (08:41)
[2020-09-08] MEDS: ASCORBIC ACID 500 MG TAB PO SCH (08:41)
[2020-09-08] MEDS: ALBUTEROL HFA INHALER INHALATION SCH ×3 (09:43→19:54)
--- NOTE | 2020-09-08 10:56 | P.PN ---
Subjective Progress Note Date: 09/08/20 Principal diagnosis: Acute hypoxemic respiratory failure secondary to coronavirus pneumonia. Acute hypoxic respiratory failure secondary to COVID-19 pneumonia. This is a 65-year-old white male patient who resides in [place], [place], and is currently in [place] visiting his daughter, presented to the emergency department on 09/01/2020 for evaluation of one week's worth of symptoms of a respiratory illness. Patient states that his symptoms include cough, fever, shortness of breath, loss of taste, generalized weakness, body aches, and diarrhea. He stated that he bought COVID 19 test kit at [facility] on 08/29/2020 which was reportedly positive. He states his is also sick with COVID-19, however not requiring hospitalization. Patient [place] with [place], and he stated he was not wearing a mask. He denies any obvious sick contacts. However he was not vaccinated for COVID-19. Denies any major medical history, patient is a lifetime nonsmoker, his had a previous history of cholecystectomy, denies any history of diabetes. Home medications include melatonin and a baby aspirin at bedtime. His chest x-ray on admission showed patchy airspace disease bilaterally. Patient was febrile on presentation with temp of 101.1F. He was placed on supplemental oxygen, currently requiring 3 L of oxygen a pulse ox of 92%, his rapid COVID-19 test in the [facility] was negative, influenza and RSV screen were also negative. Admission laboratory showed a white blood cell count 5.7, hemoglobin of 15.4, platelet count was 121, lymphocyte count was 0.6, d-dimer was 0.71, potassium is 3.0, sodium is 138, CO2 is 33, BUN is 16 creatinine 0.63, plasma lactic acid was 1.1, his AST and ALT were elevated at 114 and 1 await respectively, alkaline phosphatase is 68, CRP is 14.6, pro calcitonin level was negative at 0.16. Urinalysis but elevated urine specific gravity of greater than 1.050, 3+ protein, and 1+ ketone, but no clear evidence of infection. Initially patient was started on azithromycin and Rocephin which has since been discontinued in view of negative pro calcitonin, Decadron was added at 6 mg daily dose, patient was placed on Lovenox for DVT prophylaxis, he was started on multivitamins including vitamin D, zinc, and vitamin C. CTA chest showed no evidence of pulmonary embolism, it did show patchy bilateral pulmonary infiltrates consistent with multifocal pneumonia. No pleural fluid seen to suggest heart failure. On 09/03/2020 patient seen in follow-up on medical surgical floor, he is awake, he is resting in bed, looks fatigued, still having some low-grade fevers, with a T-max of 100.1F early this morning, he is on 4 L of oxygen pulse ox is 93%, hemodynamically stable, denies any chest discomfort, has occasional dry cough. Today is day 2 of Remdesivir, remains on Decadron 6 mg daily, remains on the vitamins, prophylactic Lovenox, Rocephin was restarted however 2 sets of pro calcitonin came back low at 0.16, suggesting absence of bacterial infection. His appetite is quite poor, he has 0.9 normal saline infusing at 20 ML per hour, he still having some diarrhea. On 09/04/2020 patient seen in follow-up on medical surgical floor, his oxygen requirements have increased and patient is currently on 7 L of oxygen up from 4 L of oxygen yesterday, his pulse ox is 90-92%, has occasional dry nonproductive cough, he is feeling weak, appetite is poor. No chest discomfort, he did have a fever 102.8F yesterday in the afternoon, overnight his fever pattern has been improved, and distal low-grade temp at this morning with a temp of 99.7F, today is day 3 of Remdesivir, he continues on Decadron, prophylactic Lovenox, and multivitamins. His send out PCR test for COVID-19 is still pending. Today's labs have been reviewed, white blood cell count is 7.42, hemoglobin is 13.9, d- dimer is 1.21, sodium is 141, potassium is 4.9, BUN is 16, creatinine 0.5. His LDH is 550, his Legionella urine antigen was negative. Just had one bowel movement in the last 24 hours. Patient is voiding. Chest x-ray shows moderate to marked diffuse patchy opacities. May be slightly worsened compared admission chest x-ray. The patient is seen today 09/05/2020 in follow-up on the regular medical floor. He is currently resting comfortably in bed. Awake and alert in no acute distress. He is maintaining O2 saturations in the 90s on 6 L high flow nasal cannula. He did have a temp of 100.6 early this morning but is currently afebrile. Hemodynamically stable. Still with some dyspnea on minimal exertion. Sputum culture pending. No chest x-ray today. No new labs today. This is day #4 of Remdesivir. He remains on Lovenox, Decadron, vitamin supplements. The patient seen today 09/06/2020 in follow-up on the regular medical floor. He is currently sitting up in a chair at the bedside. Awake and alert in no acute distress. His oxygen requirements have gone up however he is on 15 L high flow nasal cannula to maintain O2 saturation 88-92%. Chest x-ray continues to show bilateral patchy infiltrates bilaterally. This is day #5 of his Remdesivir. He remains on Decadron 6 mg daily, Lovenox 40 mg daily, vitamin supplements. D- dimer 1.9 to today. Reevaluated today on 09/07/2020, patient seems to be doing a bit worse, he required placement on a nonrebreather mask today, O2 saturation is in the low 90s. Patient felt congested and his 15 L high flow cannula was changed to a nonrebreather mask. Chest x-ray showed worsening infiltrates bilaterally. Patient received toci yesterday, he finished a full course of REM , he is on Decadron 6 mg twice a day, he is also on Lovenox 40 mg subcu twice a day. I did recommend a dose of Lasix today. Patient was transferred to the ICU mostly because of his worsening pulmonary status. Although I did discuss potential requirement for intubation mechanical ventilation, and the patient clearly stated to me that he would rather and not and up on mechanical ventilation. And he was very certain about this decision CBC is relatively normal today. D- dimer is 2.58. LDH is down a bit at 531 however his C-reactive protein is up to 13.9. Progress note dated 09/08/2020. The patient was admitted to the hospital on September 01 with an episode of coronavirus pneumonia. The patient received REM, and TOCI, and is receiving Decadron, Lovenox, and vitamins such as vitamin C, D3, and zinc. The patient was transferred to the intensive care unit on September 07 for worsening hypoxemic respiratory failure. Currently, the patient is on 15 L high flow nasal cannula, as well as a nonrebreather mask. The patient is not receiving any IV fluids. According to my partner's notes, the patient would not want intubation and mechanical ventilation, and would rather secondary to pneumonia. Hence, we will do everything short of putting him on mechanical ventilation. CBC is completely normal. D-dimer is 2.93. Sodium 139, potassium 3.5, chlorides 96, CO2 37, anion gap 6, BUN 26, and creatinine 0.68. Chest x-ray shows bilateral airspace disease, consistent with coronavirus pneumonia. Objective - Vital Signs Vital signs: Vital Signs Temp 97.9 F 09/08/20 08:00 Pulse 86 09/08/20 10:00 Resp 23 09/08/20 10:00 BP 149/98 09/08/20 10:00 Pulse Ox 89 L 09/08/20 10:00 Intake & Output 09/07/20 09/08/20 09/08/20 18:59 06:59 18:59 Intake Total 400 Output Total 1575 850 0 Balance -1575 -450 0 Intake: Intake, IV Titration 200 Amount Fluconazole in NaCl,Iso- 200 Osm 200 mg In Saline 1 100ml.bag @ 100 mls/hr IVPB Q24H [facility] Rx#: [id number] Oral 200 Output: Urine 1575 550 0 Urine/Stool Mix 300 Other: Voiding Method Urinal Urinal # Bowel Movements 1 - Exam Oriented 3, currently on a nonrebreather and a 15 L high flow nasal cannula. Mild conversational dyspnea. HEENT examination is grossly unremarkable. Neck supple. Full range of motion. No adenopathy thyromegaly or neck vein distention. Cardiovascular examination reveals regular rhythm rate. S1-S2 normal. No S3 or S4. No discernible murmur noted. Heart sounds are very distant. Heart rate 86 bpm. Lungs reveal diffuse bilateral coarse rhonchi and crackles. No wheezes. Breath sounds are equal bilaterally but diminished throughout. Abdomen soft bowel sounds are heard. No masses or tenderness. Extremities are intact. No cyanosis clubbing or edema. Skin is without rash or lesion. Neurologic examination is brief but nonfocal. - Labs CBC & Chem 7: 09/08/20 03:39 09/08/20 03:39 Labs: Abnormal Lab Results - Last 24 Hours (Table) 09/07/20 09/07/20 09/07/20 Range/Units 10:57 10:57 10:57 Lymphocytes # (Manual) 0.65 L (1.0-4.8) k/uL D-Dimer 2.58 H (<0.60) mg/L FEU Potassium 3.0 L (3.5-5.1) mmol/L Chloride 92 L (98-107) mmol/L Carbon Dioxide 38 H (22-30) mmol/L BUN 22 H (9-20) mg/dL Creatinine 0.65 L (0.66-1.25) mg/dL Glucose 127 H (74-99) mg/dL POC Glucose (mg/dL) (75-99) mg/dL C-Reactive Protein 14.0 H (<1.0) mg/dL 09/07/20 09/07/20 09/08/20 Range/Units 17:23 21:02 03:39 Lymphocytes # (Manual) 0.68 L (1.0-4.8) k/uL D-Dimer (<0.60) mg/L FEU Potassium 3.4 L (3.5-5.1) mmol/L Chloride (98-107) mmol/L Carbon Dioxide (22-30) mmol/L BUN (9-20) mg/dL Creatinine (0.66-1.25) mg/dL Glucose (74-99) mg/dL POC Glucose (mg/dL) 138 H (75-99) mg/dL C-Reactive Protein (<1.0) mg/dL 09/08/20 09/08/20 Range/Units 03:39 03:39 Lymphocytes # (Manual) (1.0-4.8) k/uL D-Dimer 2.93 H (<0.60) mg/L FEU Potassium (3.5-5.1) mmol/L Chloride 96 L (98-107) mmol/L Carbon Dioxide 37 H (22-30) mmol/L BUN 26 H (9-20) mg/dL Creatinine (0.66-1.25) mg/dL Glucose 141 H (74-99) mg/dL POC Glucose (mg/dL) (75-99) mg/dL C-Reactive Protein 5.8 H (<1.0) mg/dL Microbiology - Last 24 Hours (Table) 09/05/20 17:35 Blood Culture - Preliminary Blood No Growth after 48 hours 09/01/20 17:06 Blood Culture - Final Blood No Growth after 144 hours 09/06/20 15:20 Urine Culture - Final Urine,Clean Catch Assessment and Plan Assessment: Acute hypoxemic respiratory failure secondary to COVID 19 pneumonia. Elevated inflammatory marker secondary to coronavirus infection. Lifetime nonsmoker. History of cholecystectomy. Plan: Plan dated 09/08/2020. The patient is currently in the intensive care unit, having been moved there yesterday, for worsening oxygenation. The patient is on 15 L high flow nasal cannula, and a nonrebreather mask. The patient has received REM and TOCI, and continues on Decadron, Lovenox, and vitamins. Prognosis is very guarded. The patient is apparently stated numerous times, that he does not want intubation and mechanical ventilation. We will except his wishes. We will continue to follow. Prognosis is very guarded. Time with Patient: Greater than 30
--- NOTE | 2020-09-08 14:30 | P.PN ---
Subjective Progress Note Date: 09/08/20 This is a 65-year-old male who was recently admitted with COVID-19 pneumonia, acute bilateral pneumonia and respiratory status worsened and patient was transferred to the ICU for close monitoring. Radiation Control Worker along with pulmonary and infectious disease following closely as well. Patient has received R emdesivir along with Actemra. Urology is also maintained on dexamethasone along with vitamins and zinc supplements and Lovenox and will continue. Patient is currently maintained on 15 L high flow oxygen along with nonrebreather. Patient has made wishes of not wanting to be on mechanical vent if respiratory status continues to deteriorate. Patient is alert and oriented 3. Patient is tolerating oral intake although continues to have minimal intake noted. Patient states he is going to the bathroom with no difficulties. D-dimer is elevated again at 2.93, CBC within normal limits, sodium is 139, potassium is 3.5, current creatinine is 0.68, CRP trending down at 5.8. Review of systems: Constitutional: No reports of fatigue, fever, or chills Cardiovascular: No reports of chest pain or palpitations Respiratory: Reports shortness of breath although feels is improved today GI: No reports of nausea, vomiting, or diarrhea, reports poor oral intake no real appetite or desire of food here : No reports of dysuria or retention Neurovascular: No reports of weakness or numbness All medications have been reviewed Active Medications Acetaminophen (Acetaminophen Tab 325 Mg Tab) 650 mg PO Q6HR PRN PRN Reason: Mild Pain or Fever > 100.5 Last Admin: 09/05/20 02:45 Dose: 650 mg Documented by: Albuterol Sulfate (Albuterol Hfa Inhaler) 2 puff INHALATION RT-TID [facility] Last Admin: 09/08/20 14:05 Dose: 2 puff Documented by: Ascorbic Acid (Ascorbic Acid 500 Mg Tab) 500 mg PO DAILY [facility] Last Admin: 09/08/20 08:41 Dose: 500 mg Documented by: Aspirin (Aspirin 81 Mg) 81 mg PO HS [facility] Last Admin: 09/07/20 20:57 Dose: 81 mg Documented by: Benzocaine/Menthol (Benzocaine/Menthol Lozeng 1 Each Lozenge) 1 each MUCOUS MEM Q4HR PRN PRN Reason: Sore Throat Cholecalciferol (Cholecalciferol 25 Mcg (1000 Iu) Tablet) 50 mcg PO DAILY [facility] Last Admin: 09/08/20 08:41 Dose: 50 mcg Documented by: Dexamethasone (Dexamethasone 2 Mg Tab) 6 mg PO BID [facility] Last Admin: 09/08/20 08:41 Dose: 6 mg Documented by: Enoxaparin Sodium (Enoxaparin 40 Mg/0.4 Ml Syringe) 40 mg SQ BID [facility] Last Admin: 09/08/20 08:41 Dose: 40 mg Documented by: Fluticasone Propionate (Fluticasone 50mcg/[place] Nasal 16gm) 2 spray EA NOSTRIL DAILY PRN PRN Reason: Allergy Symptoms Last Admin: 09/07/20 05:53 Dose: 2 spray Documented by: Guaifenesin (Guaifenesin Syrup 100mg/5ml 200 Mg/10 Ml Cup) 200 mg PO Q6H PRN PRN Reason: Cough Guaifenesin (Guaifenesin 600 Mg Tablet.Er) 600 mg PO Q12HR PRN PRN Reason: Cough Guaifenesin/Dextromethorphan (Guaifenesin-Dm 600/30mg 1 Each Tab.Er.12h) 1 each PO Q12HR [facility] Last Admin: 09/08/20 08:41 Dose: 1 each Documented by: Fluconazole/Sodium Chloride (200 mg/ IV Solution) 100 mls @ 100 mls/hr IVPB Q24H [facility] Last Admin: 09/07/20 20:56 Dose: 100 mls/hr Documented by: Melatonin (Melatonin 5 Mg Tablet) 10 mg PO HS [facility] Last Admin: 09/07/20 20:57 Dose: 10 mg Documented by: Miscellaneous Information (Potassium Replacement Protocol 1 Each Misc) 1 each MISCELLANE DAILY PRN; Protocol PRN Reason: Per Protocol Miscellaneous Information (Magnesium Replacement Protocol 1 Each Misc) 1 each MISCELLANE DAILY PRN; Protocol PRN Reason: Per Protocol Miscellaneous Information (Potassium Replacement Protocol 1 Each Misc) 1 each MISCELLANE DAILY PRN; Protocol PRN Reason: Per Protocol Naloxone HCl (Naloxone 0.4 Mg/Ml 1 Ml Vial) 0.2 mg IV Q2M PRN PRN Reason: Opioid Reversal Zinc Sulfate (Zinc Sulfate 220 Mg Cap) 220 mg PO DAILY [facility] Last Admin: 09/08/20 08:41 Dose: 220 mg Documented by: Objective - Vital Signs Vital signs: Vital Signs Temp 97.9 F 07/19/21 08:00 Pulse 86 09/08/20 10:00 Resp 23 09/08/20 10:00 BP 149/98 09/08/20 10:00 Pulse Ox 89 L 09/08/20 10:00 Intake & Output 09/07/20 09/08/20 09/08/20 18:59 06:59 18:59 Intake Total 400 Output Total 1575 850 0 Balance -1575 -450 0 Intake: Intake, IV Titration 200 Amount Fluconazole in NaCl,Iso- 200 Osm 200 mg In Saline 1 100ml.bag @ 100 mls/hr IVPB Q24H [facility] Rx#: [id number] Oral 200 Output: Urine 1575 550 0 Urine/Stool Mix 300 Other: Voiding Method Urinal Urinal # Bowel Movements 1 - Exam Gen: This is a 65-year-old male sitting up in the chair awake, alert and oriented 3, well-developed, well-nourished. Temp is 97.9F, pulse is 64, respirations are 23, blood pressure is 144/90, oxygen saturation is 89-93% on high flow nasal cannula 15 L along with nonrebreather HEENT: Head is atraumatic, normocephalic. Pupils equal, round. Sclerae is anicteric. NECK: Supple. No JVD. No lymphadenopathy. No thyromegaly. LUNGS: Diminished breath sounds bilaterally with some scattered coarse rhonchi noted. No intercostal retractions. HEART: S1, S2 are muffled ABDOMEN: Soft. Bowel sounds are present. No masses. No tenderness. EXTREMITIES: No pedal edema. No calf tenderness. NEUROLOGICAL: Patient is awake, alert and oriented x3. Cranial nerves 2 through 12 are grossly intact. - Labs CBC & Chem 7: 09/08/20 03:39 09/08/20 03:39 Labs: Abnormal Lab Results - Last 24 Hours (Table) 09/07/20 09/07/20 09/07/20 Range/Units 10:57 10:57 17:23 Lymphocytes # (Manual) 0.65 L (1.0-4.8) k/uL D-Dimer (<0.60) mg/L FEU Potassium 3.0 L 3.4 L (3.5-5.1) mmol/L Chloride 92 L (98-107) mmol/L Carbon Dioxide 38 H (22-30) mmol/L BUN 22 H (9-20) mg/dL Creatinine 0.65 L (0.66-1.25) mg/dL Glucose 127 H (74-99) mg/dL POC Glucose (mg/dL) (75-99) mg/dL C-Reactive Protein 14.0 H (<1.0) mg/dL 09/07/20 09/08/20 09/08/20 Range/Units 21:02 03:39 03:39 Lymphocytes # (Manual) 0.68 L (1.0-4.8) k/uL D-Dimer 2.93 H (<0.60) mg/L FEU Potassium (3.5-5.1) mmol/L Chloride (98-107) mmol/L Carbon Dioxide (22-30) mmol/L BUN (9-20) mg/dL Creatinine (0.66-1.25) mg/dL Glucose (74-99) mg/dL POC Glucose (mg/dL) 138 H (75-99) mg/dL C-Reactive Protein (<1.0) mg/dL 09/08/20 Range/Units 03:39 Lymphocytes # (Manual) (1.0-4.8) k/uL D-Dimer (<0.60) mg/L FEU Potassium (3.5-5.1) mmol/L Chloride 96 L (98-107) mmol/L Carbon Dioxide 37 H (22-30) mmol/L BUN 26 H (9-20) mg/dL Creatinine (0.66-1.25) mg/dL Glucose 141 H (74-99) mg/dL POC Glucose (mg/dL) (75-99) mg/dL C-Reactive Protein 5.8 H (<1.0) mg/dL Microbiology - Last 24 Hours (Table) 09/05/20 17:35 Blood Culture - Preliminary Blood No Growth after 48 hours 09/01/20 17:06 Blood Culture - Final Blood No Growth after 144 hours 09/06/20 15:20 Urine Culture - Final Urine,Clean Catch Assessment and Plan Assessment: Acute COVID-19 infection with acute bilateral interstitial pneumonia with acute hypoxic respiratory failure Elevated pro calcitonin Continued fever Kaylin albicans from the sputum thrombocytopenia elevated d-dimer without any evidence of acute pulmonary embolism or deep vein thrombosis Elevated inflammatory markers of COVID-19 Hypokalemia Elevated random glucose Hypocalcemia Increased AST, ALT possibly hepatitis secondary to COVID-19 elevated CRP history of cholecystectomy Obesity with body mass index of 32 Full code with no mechanical ventilation Recommendations and discussion: Recommend to continue to closely monitor in the ICU with multiple medical consultations following. Continue with Lovenox along with vitamin and zinc supplements and dexamethasone. Continue to encourage oral intake. Patient's intake has been poor and patient states he does not have much of an appetite but is eating with each meal. Patient wishes for his CODE STATUS to be full code with instructions as he is refusing mechanical ventilation if requiring it. Patient is alert and oriented 3. Encourage the patient to increase activity as tolerated. Will repeat labs and continue to monitor closely. Due to multiple complex medical issues, prognosis is guarded.
--- NOTE | 2020-09-08 18:12 | CDI ---
Documentation Clarification Form Date: 09/08/2020 05:42:04 PM From: Hawa Lopez RN, CCDS Admit Date: 09/01/2020 04:47:00 PM Patient Name: Oren Ferro Visit Number: [id number] Discharge Date: ATTENTION: The Clinical Documentation Specialists (CDI) and [facility] Coding Staff appreciate your assistance in clarifying documentation. Please respond to the clarification below the line at the bottom and electronically sign. The CDI & [facility] Coding staff will review the response and follow-up if needed. Please note: Queries are made part of the Legal Health Record. If you have any questions, please contact the author of this message via ITS. Dr. Chad Murphy The patient presented with shortness of breath, fever and cough. Chest x-ray on 09/01 showed extensive bilateral interstitial infiltrates highly suggestive of COVID-19 pneumonia. Additional clarification regarding the etiology/cause of the clinical indicators is requested. History/Risk Factors: denies Clinical Indicators: [id number] present to ED with complaint of fever, cough, respiratory infectious symptoms for 8 days. He allegedly tested positive for COVID 3 days prior to coming to ED. 09/01 WBC: 5.7 AST 114, ALT 108, C-Reactive Protein 14.6, LDH 468, Ferritin 2676.1 09/01 Lactic acid: 1.1 09/01 NATHAN-CoV-2: Not Detected 09/02 Coronavirus (PCR) Detected 09/01 Blood cultures: No growth after 144 hours 09/04 Sputum culture: Kaylin albicans 09/01 correlate for possible pneumonia versus Covid -19 versus other less likely etiologies. 09/01 Ct Angio Chest: No PE, patchy bilateral pulmonary infiltrates consistent with multifocal pneumonia. 09/01 Vital signs: 125/86 97 22 101.1, 89 % RA 09/05 ID Consult: acute Covid-19 pneumonia covered with Remdesivir, dexamethasone, zinc and ascorbic acid. Clinically no evidence of any secondary bacterial pneumonia, we will monitor closely off antibiotic therapy. Treatment: ICU/Telemetry monitoring Monitor O2 Sat's (titrate) Monitor I/O Vital signs per protocol Actemra 750 mg IV once Remdesivir 200 mg IVPB Q 4 hrs X4 bags .9NS 1000 ml/hr bolus Hexadrol 6 mg po bid Rocephin 1000 mg IVP Zithromycin 500 mg IVPB once 09/01 Rocephin 2 gm IVPB (09/02) In your professional opinion, please clarify if these findings signify one of the following conditions: [ ] Sepsis POA [ ] Sepsis ruled out [ ] Other, please specify [ ] Unable to determine SIRS Criteria: 2 or more of the following may indicate SIRS -Temperature < 96.8F (36C) or > 101.0F (38.3C) -Heart Rate > 90 bpm -Respiratory Rate > 20 breaths/min or PaCO2 < 32 mmHg -White Blood Cell Count > 12,000 or < 4,000 cells/mm3 or > 10% bands (Template Last Reviewed: March 2020) Sepsis POA MTDD
[2020-09-08] MEDS: FLUCONAZOLE IN NACL,ISO-OSM 200 MG in SALINE 1 100ML.BAG IVPB SCH (19:06)
[2020-09-08] MEDS: MELATONIN 5 MG TABLET PO SCH (20:39)
[2020-09-08] MEDS: ASPIRIN 81 MG PO SCH (20:39)
--- NOTE | 2020-09-08 21:52 | P.PN ---
Progress Note - Text Progress Note Date: 09/08/20 REASON FOR FOLLOWUP: COVID-19 pneumonia. INTERVAL HISTORY: Patient is afebrile , currently in the ICU. Patient is currently on nonrebreather. The patient denies having any chest pain. No worsening breathing. Cough has decreased in intensity, dry in nature. No vomiting. No abdominal pain or diarrhea. PHYSICAL EXAMINATION: Blood pressure 130/80, pulse of 80, temperature 97.5. He is 95% on 100% nonrebreather. General description is a middle-aged male up in the chair in no distress. Respiratory system: Unlabored breathing, coarse breath sounds bilaterally. Heart S1, S2. Regular rate and rhythm. Abdomen is soft, no tenderness. LABS: reviewed IMPRESSION/PLAN: Patient with acute respiratory failure, multifactorial in this patient who did have a COVID-19 pneumonia and has received Remdesivir, as well as Actemra. Slight worsening respiratory status. Inflammatory markers and procalcitonin will be repeated tomorrow. Sputum showing Kaylin albicans colonized and not a source of his worsening respiratory status. pt is currently covered with dexamethasone, zinc and ascorbic acid and m onitor clinical course closely. Prognosis remains to be guarded.
[2020-09-09 04:17] LABS: African American GFR (CKD) >90 (>60 ml/min/1.73 sqM); Blood Urea Nitrogen 24 mg/dL (9-20); C Reactive Protein 3.2 mg/dL (<1.0); Calcium 8.6 mg/dL (8.4-10.2); Chloride 98 mmol/L (98-107); Glucose 147 mg/dL (74-99); Non-African American GFR(CKD) >90 (>60 ml/min/1.73 sqM); Potassium 4.6 mmol/L (3.5-5.1); Sodium 139 mmol/L (137-145)
[2020-09-09 04:21] LABS: Anion Gap 4 mmol/L; Carbon Dioxide 37 mmol/L (22-30)
[2020-09-09 04:22] LABS: Basophils # (A) 0.1 k/uL (0-0.2); Basophils % (A) 1 %; Eosinophils # (A) 0.1 k/uL (0-0.7); Eosinophils % (A) 1 %; HGB 13.9 gm/dL (13.0-17.5); Lymphocytes # (A) 0.6 k/uL (1.0-4.8); Lymphocytes % (A) 8 %; MCH 28.1 pg (25.0-35.0); MCHC 31.6 g/dL (31.0-37.0); MCV 89.2 fL (80.0-100.0); Mean Platelet Volume 6.9; Monocytes # (A) 0.7 k/uL (0-1.0); Monocytes % (A) 9 %; Neutrophils % (A) 78 %; Platelet Count 507 k/uL (150-450); RBC 4.93 m/uL (4.30-5.90); RDW 13.6 % (11.5-15.5); WBC 7.7 k/uL (3.8-10.6)
--- NOTE | 2020-09-09 07:07 | P.PN ---
Subjective Progress Note Date: 09/09/20 Principal diagnosis: Acute hypoxemic respiratory failure secondary to coronavirus pneumonia. Acute hypoxic respiratory failure secondary to COVID-19 pneumonia. This is a 65-year-old white male patient who resides in [place], [place], and is currently in [place] visiting his daughter, presented to the emergency department on 09/01/2020 for evaluation of one week's worth of symptoms of a respiratory illness. Patient states that his symptoms include cough, fever, shortness of breath, loss of taste, generalized weakness, body aches, and diarrhea. He stated that he bought COVID 19 test kit at [facility] on 08/29/2020 which was reportedly positive. He states his is also sick with COVID-19, however not requiring hospitalization. [place], and he stated he was not wearing a mask. He denies any obvious sick contacts. However he was not vaccinated for COVID-19. Denies any major medical history, patient is a lifetime nonsmoker, his had a previous history of cholecystectomy, denies any history of diabetes. Home medications include melatonin and a baby aspirin at bedtime. His chest x-ray on admission showed patchy airspace disease bilaterally. Patient was febrile on presentation with temp of 101.1F. He was placed on supplemental oxygen, currently requiring 3 L of oxygen a pulse ox of 92%, his rapid COVID-19 test in the [facility] was negative, influenza and RSV screen were also negative. Admission laboratory showed a white blood cell count 5.7, hemoglobin of 15.4, platelet count was 121, lymphocyte count was 0.6, d-dimer was 0.71, potassium is 3.0, sodium is 138, CO2 is 33, BUN is 16 creatinine 0.63, plasma lactic acid was 1.1, his AST and ALT were elevated at 114 and 1 await respectively, alkaline phosphatase is 68, CRP is 14.6, pro calcitonin level was negative at 0.16. Urinalysis but elevated urine specific gravity of greater than 1.050, 3+ protein, and 1+ ketone, but no clear evidence of infection. Initially patient was started on azithromycin and Rocephin which has since been discontinued in view of negative pro calcitonin, Decadron was added at 6 mg daily dose, patient was placed on Lovenox for DVT prophylaxis, he was started on multivitamins including vitamin D, zinc, and vitamin C. CTA chest showed no evidence of pulmonary embolism, it did show patchy bilateral pulmonary infiltrates consistent with multifocal pneumonia. No pleural fluid seen to suggest heart failure. On 09/03/2020 patient seen in follow-up on medical surgical floor, he is awake, he is resting in bed, looks fatigued, still having some low-grade fevers, with a T-max of 100.1F early this morning, he is on 4 L of oxygen pulse ox is 93%, hemodynamically stable, denies any chest discomfort, has occasional dry cough. Today is day 2 of Remdesivir, remains on Decadron 6 mg daily, remains on the vitamins, prophylactic Lovenox, Rocephin was restarted however 2 sets of pro calcitonin came back low at 0.16, suggesting absence of bacterial infection. His appetite is quite poor, he has 0.9 normal saline infusing at 20 ML per hour, he still having some diarrhea. On 09/04/2020 patient seen in follow-up on medical surgical floor, his oxygen requirements have increased and patient is currently on 7 L of oxygen up from 4 L of oxygen yesterday, his pulse ox is 90-92%, has occasional dry nonproductive cough, he is feeling weak, appetite is poor. No chest discomfort, he did have a fever 102.8F yesterday in the afternoon, overnight his fever pattern has been improved, and distal low-grade temp at this morning with a temp of 99.7F, today is day 3 of Remdesivir, he continues on Decadron, prophylactic Lovenox, and multivitamins. His send out PCR test for COVID-19 is still pending. Today's labs have been reviewed, white blood cell count is 7.42, hemoglobin is 13.9, d- dimer is 1.21, sodium is 141, potassium is 4.9, BUN is 16, creatinine 0.5. His LDH is 550, his Legionella urine antigen was negative. Just had one bowel movement in the last 24 hours. Patient is voiding. Chest x-ray shows moderate to marked diffuse patchy opacities. May be slightly worsened compared admission chest x-ray. The patient is seen today 09/05/2020 in follow-up on the regular medical floor. He is currently resting comfortably in bed. Awake and alert in no acute distress. He is maintaining O2 saturations in the 90s on 6 L high flow nasal cannula. He did have a temp of 100.6 early this morning but is currently afebrile. Hemodynamically stable. Still with some dyspnea on minimal exertion. Sputum culture pending. No chest x-ray today. No new labs today. This is day #4 of Remdesivir. He remains on Lovenox, Decadron, vitamin supplements. The patient seen today 09/06/2020 in follow-up on the regular medical floor. He is currently sitting up in a chair at the bedside. Awake and alert in no acute distress. His oxygen requirements have gone up however he is on 15 L high flow nasal cannula to maintain O2 saturation 88-92%. Chest x-ray continues to show bilateral patchy infiltrates bilaterally. This is day #5 of his Remdesivir. He remains on Decadron 6 mg daily, Lovenox 40 mg daily, vitamin supplements. D- dimer 1.9 to today. Reevaluated today on 09/07/2020, patient seems to be doing a bit worse, he required placement on a nonrebreather mask today, O2 saturation is in the low 90s. Patient felt congested and his 15 L high flow cannula was changed to a nonrebreather mask. Chest x-ray showed worsening infiltrates bilaterally. Patient received toci yesterday, he finished a full course of REM , he is on Decadron 6 mg twice a day, he is also on Lovenox 40 mg subcu twice a day. I did recommend a dose of Lasix today. Patient was transferred to the ICU mostly because of his worsening pulmonary status. Although I did discuss potential requirement for intubation mechanical ventilation, and the patient clearly stated to me that he would rather and not and up on mechanical ventilation. And he was very certain about this decision CBC is relatively normal today. D- dimer is 2.58. LDH is down a bit at 531 however his C-reactive protein is up to 13.9. Progress note dated 09/08/2020. The patient was admitted to the hospital on September 01 with an episode of coronavirus pneumonia. The patient received REM, and TOCI, and is receiving Decadron, Lovenox, and vitamins such as vitamin C, D3, and zinc. The patient was transferred to the intensive care unit on September 07 for worsening hypoxemic respiratory failure. Currently, the patient is on 15 L high flow nasal cannula, as well as a nonrebreather mask. The patient is not receiving any IV fluids. According to my partner's notes, the patient would not want intubation and mechanical ventilation, and would rather secondary to pneumonia. Hence, we will do everything short of putting him on mechanical ventilation. CBC is completely normal. D-dimer is 2.93. Sodium 139, potassium 3.5, chlorides 96, CO2 37, anion gap 6, BUN 26, and creatinine 0.68. Chest x-ray shows bilateral airspace disease, consistent with coronavirus pneumonia. Progress note dated 09/09/2020. This patient is a 65-year-old male who was admitted to the hospital on September 01, with coronavirus pneumonia. The patient received REM, and TOCI. In addition, the patient is receiving Decadron, Lovenox, and vitamin. The patient was transferred to the intensive care unit on September 07 worsening oxygenation and acute respiratory failure. Currently, the patient remains on 15 L high flow nasal O2, and a nonrebreather mask. The patient is adamant about not being intubated and mechanically ventilated. He apparently told my partner that he would rather than go on the ventilator. He's not receiving any IV fluids. Patient is about the same today as he was yesterday. CBC shows a white count of 7.7, hemoglobin 13.9, and a platelet count of 507,000. Sodium 139, potassium 4.6, chlorides 98, CO2 37, anion gap 4, BUN 24, and creatinine 0.73. Sputum is as far negative only showing evidence of Kaylin albicans. Chest x-ray shows diffuse bilateral infiltrates. Objective - Vital Signs Vital signs: Vital Signs Temp 98.5 F 09/09/20 04:00 Pulse 71 09/09/20 06:00 Resp 20 09/09/20 06:00 BP 147/86 09/09/20 06:00 Pulse Ox 93 L 09/09/20 06:00 Intake & Output 09/08/20 09/09/20 09/09/20 18:59 06:59 18:59 Intake Total 60 Output Total 500 150 Balance -500 -90 Weight 89.993 kg Intake: IV 60 Sodium Chloride 0.9% 1, 60 000 ml @ 20 mls/hr IV . [facility] Rx#:[id number] Output: Urine 500 150 Other: Voiding Method Urinal Urinal # Voids 1 - Exam Oriented 3, currently on a nonrebreather and a 15 L high flow nasal cannula. Mild conversational dyspnea. Saturations are 93%. HEENT examination is grossly unremarkable. Neck supple. Full range of motion. No adenopathy thyromegaly or neck vein distention. Cardiovascular examination reveals regular rhythm rate. S1-S2 normal. No S3 or S4. No discernible murmur noted. Heart sounds are very distant. Heart rate 71 bpm. Lungs reveal diffuse bilateral coarse rhonchi and crackles. No wheezes. Breath sounds are equal bilaterally but diminished throughout. Abdomen soft bowel sounds are heard. No masses or tenderness. Extremities are intact. No cyanosis clubbing or edema. Skin is without rash or lesion. Neurologic examination is brief but nonfocal. - Labs CBC & Chem 7: 09/09/20 03:34 09/09/20 03:34 Labs: Abnormal Lab Results - Last 24 Hours (Table) 09/09/20 09/09/20 Range/Units 03:34 03:34 Plt Count 507 H (150-450) k/uL Lymphocytes # 0.6 L (1.0-4.8) k/uL Carbon Dioxide 37 H (22-30) mmol/L BUN 24 H (9-20) mg/dL Glucose 147 H (74-99) mg/dL C-Reactive Protein 3.2 H (<1.0) mg/dL Microbiology - Last 24 Hours (Table) 09/05/20 17:35 Blood Culture - Preliminary Blood No Growth after 72 hours Assessment and Plan Assessment: Acute hypoxemic respiratory failure secondary to COVID 19 pneumonia. Elevated inflammatory marker secondary to coronavirus infection. Lifetime nonsmoker. History of cholecystectomy. Plan: Plan dated 09/08/2020. The patient is currently in the intensive care unit, having been moved there yesterday, for worsening oxygenation. The patient is on 15 L high flow nasal cannula, and a nonrebreather mask. The patient has received REM and TOCI, and continues on Decadron, Lovenox, and vitamins. Prognosis is very guarded. The patient is apparently stated numerous times, that he does not want intubation and mechanical ventilation. We will except his wishes. We will continue to follow. Prognosis is very guarded. Plan dated 09/09/2020. Currently, the patient has received all the appropriate medications that he should receive. He has received REM, and TOCI, as well as Decadron, Lovenox, vitamin C, vitamin D3, and zinc. The patient's overall situation is unchanged. He is adamant about not going on mechanical ventilation. He remains on the nonrebreather mass as well as 15 L high flow nasal cannula. Chest x-ray continues to show diffuse bilateral infiltrates. Prognosis is guarded. Time with Patient: Greater than 30
[2020-09-09] MEDS: ENOXAPARIN 40 MG/0.4 ML SYRINGE SQ SCH ×2 (08:13→21:36)
[2020-09-09] MEDS: dexAMETHasone 2 MG TAB PO SCH ×2 (08:13→21:37)
[2020-09-09] MEDS: ZINC SULFATE 220 MG CAP PO SCH (08:13)
[2020-09-09] MEDS: ASCORBIC ACID 500 MG TAB PO SCH (08:14)
[2020-09-09] MEDS: CHOLECALCIFEROL 25 MCG (1000 IU) TABLET PO SCH (08:14)
[2020-09-09] MEDS: guaiFENesin-DM 600/30MG 1 EACH TAB.ER.12H PO SCH ×2 (08:15→21:37)
--- NOTE | 2020-09-09 08:19 | XR ---
EXAMINATION TYPE: XR chest 1V portable DATE OF EXAM: 09/09/2020 COMPARISON: Chest x-ray 09/08/2020 HISTORY: Pneumonia TECHNIQUE: Single frontal view of the chest is obtained. FINDINGS: Findings are similar to prior exam. IMPRESSION: Correlate for pneumonia.
[2020-09-09] MEDS: ALBUTEROL HFA INHALER INHALATION SCH ×3 (08:32→20:44)
--- NOTE | 2020-09-09 11:38 | P.PN ---
Subjective This is a 65-year-old male who was recently admitted with COVID-19 pneumonia, acute bilateral pneumonia and respiratory status worsened and patient was transferred to the ICU for close monitoring. [employer] along with pulmonary and infectious disease following closely as well. Patient has received Remdesivir along with Actemra. Urology is also maintained on dexamethasone along with vitamins and zinc supplements and Lovenox and will continue. Patient is currently maintained on 15 L high flow oxygen along with nonrebreather. Patient has made wishes of not wanting to be on mechanical vent if respiratory status continues to deteriorate. Patient is alert and oriented 3. Patient is tolerating oral intake although continues to have minimal intake noted. Discussed the case with Dr. sawant, is going to try Megace for now. Patient s tates he is going to the bathroom with no difficulties. D-dimer is elevated again at 2.93, CBC and BMP within normal limits, Patient is currently kept on albuterol, dexamethasone, Lovenox, he is also on vitamin C, D and zinc. Objective - Vital Signs Vital signs: Vital Signs Temp 98.6 F 09/09/20 08:00 Pulse 75 09/09/20 10:00 Resp 23 09/09/20 10:00 BP 128/82 09/09/20 10:00 Pulse Ox 89 L 09/09/20 10:00 Intake & Output 09/08/20 09/09/20 09/09/20 18:59 06:59 18:59 Intake Total 60 Output Total 500 150 0 Balance -500 -90 0 Weight 89.993 kg 96.4 kg Intake: IV 60 Sodium Chloride 0.9% 1, 60 000 ml @ 20 mls/hr IV . Q24H [facility] Rx#:[id number] Output: Urine 500 150 0 Other: Voiding Method Urinal Urinal Urinal # Voids 1 - Exam GENERAL: The patient is alert and oriented x3, not in any acute distress. Well developed, well nourished. HEENT: Pupils are round and equally reacting to light. EOMI. No scleral icterus. No conjunctival pallor. Normocephalic, atraumatic. No pharyngeal erythema. No thyromegaly. CARDIOVASCULAR: S1 and S2 present. No murmurs, rubs, or gallops. -PULMONARY: Chest is clear to auscultation, no wheezing or crackles.normoactive bowel sounds. No palpable organomegaly. MUSCULOSKELETAL: No joint swelling or deformity. EXTREMITIES: No cyanosis, clubbing, or pedal edema. NEUROLOGICAL: Gross neurological examination did not reveal any focal deficits. SKIN: No rashes. no petechiae. - Labs CBC & Chem 7: 09/09/20 03:34 09/09/20 03:34 Labs: Abnormal Lab Results - Last 24 Hours (Table) 09/09/20 09/09/20 Range/Units 03:34 03:34 Plt Count 507 H (150-450) k/uL Lymphocytes # 0.6 L (1.0-4.8) k/uL Carbon Dioxide 37 H (22-30) mmol/L BUN 24 H (9-20) mg/dL Glucose 147 H (74-99) mg/dL C-Reactive Protein 3.2 H (<1.0) mg/dL Microbiology - Last 24 Hours (Table) 09/05/20 17:35 Blood Culture - Preliminary Blood No Growth after 72 hours Assessment and Plan Assessment: Acute COVID-19 infection with acute bilateral interstitial pneumonia with acute hypoxic respiratory failure Kaylin albicans from the sputum thrombocytopenia elevated d-dimer without any evidence of acute pulmonary embolism or deep vein thrombosis Elevated inflammatory markers of COVID-19 Hypokalemia Elevated random glucose Hypocalcemia Increased AST, ALT possibly hepatitis secondary to COVID-19 elevated CRP history of cholecystectomy Obesity with body mass index of 32 Full code with no mechanical ventilation Plan: This is a pleasant 65 years old male who presents with cough and bilateral pneumonia. Continue with multiple vitamin cocktail with vitamin D, C AND ZINC .continue with dexamethasone Infectious disease and pulmonary on the case Labs and medication were reviewed.. Continue same treatment. Continue with symptomatic treatment. Resume home medication. Monitor lytes and vitals. DVT and GI prophylaxis. Further recommendationsas per clinical course of the patient DVT prophylaxis: Subcutaneous Lovenox GI Prophylaxis: Pepcid Prognosis is guarded
[2020-09-09] MEDS: FLUCONAZOLE IN NACL,ISO-OSM 200 MG in SALINE 1 100ML.BAG IVPB SCH (18:44)
[2020-09-09] MEDS: ASPIRIN 81 MG PO SCH (21:37)
[2020-09-09] MEDS: MELATONIN 5 MG TABLET PO SCH (21:37)
--- NOTE | 2020-09-09 22:44 | PN ---
PROGRESS NOTE DATE OF SERVICE: 09/09/2020 REASON FOR FOLLOWUP: COVID-19 pneumonia. INTERVAL HISTORY: Patient remains to be afebrile. The patient is hemodynamically stable, not on any pressor support. The patient is currently on 15 high-flow nasal cannula oxygen. Status is about the same. No worsening. No vomiting. No diarrhea or any other changes noted by nursing staff. PHYSICAL EXAMINATION: Blood pressure 147/86, pulse of 71, temperature 98.5. He is 93% on 15 L high-flow oxygen. General description is a middle-aged male up in the chair in no distress. Respiratory system: Unlabored breathing. Bilateral coarse rhonchi and crackles. Abdomen is soft, no tenderness. LABS: Chest x-ray with bilateral infiltrate. The patient's procalcitonin is normal. Hemoglobin 13.7, white count 7.7, BUN of 24, creatinine 0.73. DIAGNOSTIC IMPRESSION AND PLAN: Patient with acute respiratory failure secondary to COVID-19 pneumonia with no evidence of any secondary bacterial pneumonia. Procalcitonin is normal. The patient is currently on Decadron has received Remdesivir and tocilizumab. Overall prognosis extremely guarded. Continue supportive care. MMODL / IJN: [id number] /
[2020-09-10 04:38] LABS: ALT 77 U/L (4-49); AST 56 U/L (17-59); African American GFR (CKD) >90 (>60 ml/min/1.73 sqM); Albumin 2.6 g/dL (3.5-5.0); Alkaline Phosphatase 71 U/L (38-126); Anion Gap 4 mmol/L; Blood Urea Nitrogen 24 mg/dL (9-20); C Reactive Protein 1.9 mg/dL (<1.0); Calcium 8.6 mg/dL (8.4-10.2); Carbon Dioxide 36 mmol/L (22-30); Chloride 97 mmol/L (98-107); Glucose 134 mg/dL (74-99); Non-African American GFR(CKD) >90 (>60 ml/min/1.73 sqM); Potassium 4.4 mmol/L (3.5-5.1); Sodium 137 mmol/L (137-145); Total Bilirubin 0.7 mg/dL (0.2-1.3); Total Protein 5.6 g/dL (6.3-8.2)
[2020-09-10 04:43] LABS: Basophils % (A) 0 %; Eosinophils # (A) 0.1 k/uL (0-0.7); Eosinophils % (A) 1 %; HCT 46.1 % (39.0-53.0); HGB 14.8 gm/dL (13.0-17.5); Lymphocytes # (A) 0.6 k/uL (1.0-4.8); Lymphocytes % (A) 7 %; MCH 28.7 pg (25.0-35.0); MCV 89.4 fL (80.0-100.0); Monocytes # (A) 0.7 k/uL (0-1.0); Monocytes % (A) 8 %; Neutrophils # (A) 6.7 k/uL (1.3-7.7); Neutrophils % (A) 80 %; Platelet Count 550 k/uL (150-450); RBC 5.16 m/uL (4.30-5.90); RDW 13.4 % (11.5-15.5); WBC 8.4 k/uL (3.8-10.6)
--- NOTE | 2020-09-10 08:43 | P.PN ---
Subjective Progress Note Date: 09/10/20 Principal diagnosis: Acute hypoxemic respiratory failure secondary to coronavirus pneumonia. Acute hypoxic respiratory failure secondary to COVID-19 pneumonia. This is a 65-year-old white male patient who resides in [place], [place], and is currently in [place] visiting his daughter, presented to the emergency department on 09/01/2020 for evaluation of one week's worth of symptoms of a respiratory illness. Patient states that his symptoms include cough, fever, shortness of breath, loss of taste, generalized weakness, body aches, and diarrhea. He stated that he bought COVID 19 test kit at [facility] on 08/29/2020 which was reportedly positive. He states his is also sick with COVID-19, however not requiring hospitalization. [place], and he stated he was not wearing a mask. He denies any obvious sick contacts. However he was not vaccinated for COVID-19. Denies any major medical history, patient is a lifetime nonsmoker, his had a previous history of cholecystectomy, denies any history of diabetes. Home medications include melatonin and a baby aspirin at bedtime. His chest x-ray on admission showed patchy airspace disease bilaterally. Patient was febrile on presentation with temp of 101.1F. He was placed on supplemental oxygen, currently requiring 3 L of oxygen a pulse ox of 92%, his rapid COVID-19 test in the [facility] was negative, influenza and RSV screen were also negative. Admission laboratory showed a white blood cell count 5.7, hemoglobin of 15.4, platelet count was 121, lymphocyte count was 0.6, d-dimer was 0.71, potassium is 3.0, sodium is 138, CO2 is 33, BUN is 16 creatinine 0.63, plasma lactic acid was 1.1, his AST and ALT were elevated at 114 and 1 await respectively, alkaline phosphatase is 68, CRP is 14.6, pro calcitonin level was negative at 0.16. Urinalysis but elevated urine specific gravity of greater than 1.050, 3+ protein, and 1+ ketone, but no clear evidence of infection. Initially patient was started on azithromycin and Rocephin which has since been discontinued in view of negative pro calcitonin, Decadron was added at 6 mg daily dose, patient was placed on Lovenox for DVT prophylaxis, he was started on multivitamins including vitamin D, zinc, and vitamin C. CTA chest showed no evidence of pulmonary embolism, it did show patchy bilateral pulmonary infiltrates consistent with multifocal pneumonia. No pleural fluid seen to suggest heart failure. On 09/03/2020 patient seen in follow-up on medical surgical floor, he is awake, he is resting in bed, looks fatigued, still having some low-grade fevers, with a T-max of 100.1F early this morning, he is on 4 L of oxygen pulse ox is 93%, hemodynamically stable, denies any chest discomfort, has occasional dry cough. Today is day 2 of Remdesivir, remains on Decadron 6 mg daily, remains on the vitamins, prophylactic Lovenox, Rocephin was restarted however 2 sets of pro calcitonin came back low at 0.16, suggesting absence of bacterial infection. His appetite is quite poor, he has 0.9 normal saline infusing at 20 ML per hour, he still having some diarrhea. On 09/04/2020 patient seen in follow-up on medical surgical floor, his oxygen requirements have increased and patient is currently on 7 L of oxygen up from 4 L of oxygen yesterday, his pulse ox is 90-92%, has occasional dry nonproductive cough, he is feeling weak, appetite is poor. No chest discomfort, he did have a fever 102.8F yesterday in the afternoon, overnight his fever pattern has been improved, and distal low-grade temp at this morning with a temp of 99.7F, today is day 3 of Remdesivir, he continues on Decadron, prophylactic Lovenox, and multivitamins. His send out PCR test for COVID-19 is still pending. Today's labs have been reviewed, white blood cell count is 7.42, hemoglobin is 13.9, d- dimer is 1.21, sodium is 141, potassium is 4.9, BUN is 16, creatinine 0.5. His LDH is 550, his Legionella urine antigen was negative. Just had one bowel movement in the last 24 hours. Patient is voiding. Chest x-ray shows moderate to marked diffuse patchy opacities. May be slightly worsened compared admission chest x-ray. The patient is seen today 09/05/2020 in follow-up on the regular medical floor. He is currently resting comfortably in bed. Awake and alert in no acute distress. He is maintaining O2 saturations in the 90s on 6 L high flow nasal cannula. He did have a temp of 100.6 early this morning but is currently afebrile. Hemodynamically stable. Still with some dyspnea on minimal exertion. Sputum culture pending. No chest x-ray today. No new labs today. This is day #4 of Remdesivir. He remains on Lovenox, Decadron, vitamin supplements. The patient seen today 09/06/2020 in follow-up on the regular medical floor. He is currently sitting up in a chair at the bedside. Awake and alert in no acute distress. His oxygen requirements have gone up however he is on 15 L high flow nasal cannula to maintain O2 saturation 88-92%. Chest x-ray continues to show bilateral patchy infiltrates bilaterally. This is day #5 of his Remdesivir. He remains on Decadron 6 mg daily, Lovenox 40 mg daily, vitamin supplements. D- dimer 1.9 to today. Reevaluated today on 09/07/2020, patient seems to be doing a bit worse, he required placement on a nonrebreather mask today, O2 saturation is in the low 90s. Patient felt congested and his 15 L high flow cannula was changed to a nonrebreather mask. Chest x-ray showed worsening infiltrates bilaterally. Patient received toci yesterday, he finished a full course of REM , he is on Decadron 6 mg twice a day, he is also on Lovenox 40 mg subcu twice a day. I did recommend a dose of Lasix today. Patient was transferred to the ICU mostly because of his worsening pulmonary status. Although I did discuss potential requirement for intubation mechanical ventilation, and the patient clearly stated to me that he would rather and not and up on mechanical ventilation. And he was very certain about this decision CBC is relatively normal today. D- dimer is 2.58. LDH is down a bit at 531 however his C-reactive protein is up to 13.9. Progress note dated 09/08/2020. The patient was admitted to the hospital on September 01 with an episode of coronavirus pneumonia. The patient received REM, and TOCI, and is receiving Decadron, Lovenox, and vitamins such as vitamin C, D3, and zinc. The patient was transferred to the intensive care unit on September 07 for worsening hypoxemic respiratory failure. Currently, the patient is on 15 L high flow nasal cannula, as well as a nonrebreather mask. The patient is not receiving any IV fluids. According to my partner's notes, the patient would not want intubation and mechanical ventilation, and would rather secondary to pneumonia. Hence, we will do everything short of putting him on mechanical ventilation. CBC is completely normal. D-dimer is 2.93. Sodium 139, potassium 3.5, chlorides 96, CO2 37, anion gap 6, BUN 26, and creatinine 0.68. Chest x-ray shows bilateral airspace disease, consistent with coronavirus pneumonia. Progress note dated 09/09/2020. This patient is a 65-year-old male who was admitted to the hospital on September 01, with coronavirus pneumonia. The patient received REM, and TOCI. In addition, the patient is receiving Decadron, Lovenox, and vitamin. The patient was transferred to the intensive care unit on September 07 worsening oxygenation and acute respiratory failure. Currently, the patient remains on 15 L high flow nasal O2, and a nonrebreather mask. The patient is adamant about not being intubated and mechanically ventilated. He apparently told my partner that he would rather than go on the ventilator. He's not receiving any IV fluids. Patient is about the same today as he was yesterday. CBC shows a white count of 7.7, hemoglobin 13.9, and a platelet count of 507,000. Sodium 139, potassium 4.6, chlorides 98, CO2 37, anion gap 4, BUN 24, and creatinine 0.73. Sputum is as far negative only showing evidence of Kaylin albicans. Chest x-ray shows diffuse bilateral infiltrates. Progress note dated 09/10/2020. 65-year-old male, who was admitted to the hospital on September 01 with Covid 19 pneumonia. The patient received REM and TOCI, as well as Decadron, Lovenox, and the usual vitamins. The patient was recently transferred to the intensive care unit on September 07 for worsening hypoxemic respiratory failure. There he made it very clear to my partner, but he did not want intubation or mechanical ventilation. Over the last couple days at least since seeing him, the patient was on 15 L high flow nasal cannula, as well as a nonrebreather mass. His oxygenation has improved, and now is just on the 15 L high flow oxygen. Saturations are 90-92%. The patient is not receiving any IV fluids. White count 8.4, hemoglobin 14.8, hematocrit 46.1, platelet count 550,000. D-dimer is 3.54. Sodium 137, potassium 4.4, chlorides 97, CO2 36, anion gap 4, BUN 24, and creatinine 0.65. The patient's pro-calcitonin level is very low at 0.08. The patient's chest x-ray continues to show bilateral opacifications and infiltrates, consistent with coronavirus pneumonia. Objective - Vital Signs Vital signs: Vital Signs Temp 97.7 F 09/10/20 04:00 Pulse 70 09/10/20 07:00 Resp 19 09/10/20 07:00 BP 129/92 09/10/20 07:00 Pulse Ox 92 L 09/10/20 07:00 Intake & Output 09/09/20 09/10/20 09/10/20 18:59 06:59 18:59 Intake Total 100 Output Total 0 760 0 Balance 0 -660 0 Intake: Intake, IV Titration 100 Amount Fluconazole in NaCl,Iso- 100 Osm 200 mg In Saline 1 100ml.bag @ 100 mls/hr IVPB Q24H [facility] Rx#: [id number] Output: Urine 0 760 0 Other: Voiding Method Urinal Urinal - Exam Oriented 3, currently on 15 L high flow nasal cannula. Mild conversational dyspnea. Saturations are 90 - 93%. HEENT examination is grossly unremarkable. Neck supple. Full range of motion. No adenopathy thyromegaly or neck vein distention. Cardiovascular examination reveals regular rhythm rate. S1-S2 normal. No S3 or S4. No discernible murmur noted. Heart sounds are very distant. Heart rate 70 bpm. Lungs reveal diffuse bilateral coarse rhonchi and crackles. No wheezes. Breath sounds are equal bilaterally but diminished throughout. Abdomen soft bowel sounds are heard. No masses or tenderness. Extremities are intact. No cyanosis clubbing or edema. Skin is without rash or lesion. Neurologic examination is brief but nonfocal. - Labs CBC & Chem 7: 09/10/20 03:28 09/10/20 03:28 Labs: Abnormal Lab Results - Last 24 Hours (Table) 09/10/20 09/10/20 09/10/20 Range/Units 03:28 03:28 03:28 Plt Count 550 H (150-450) k/uL Lymphocytes # 0.6 L (1.0-4.8) k/uL D-Dimer 3.54 H (<0.60) mg/L FEU Chloride 97 L (98-107) mmol/L Carbon Dioxide 36 H (22-30) mmol/L BUN 24 H (9-20) mg/dL Creatinine 0.65 L (0.66-1.25) mg/dL Glucose 134 H (74-99) mg/dL ALT 77 H (4-49) U/L C-Reactive Protein 1.9 H (<1.0) mg/dL Total Protein 5.6 L (6.3-8.2) g/dL Albumin 2.6 L (3.5-5.0) g/dL Microbiology - Last 24 Hours (Table) 09/05/20 17:35 Blood Culture - Preliminary Blood No Growth after 96 hours Assessment and Plan Assessment: Acute hypoxemic respiratory failure secondary to COVID 19 pneumonia. Elevated inflammatory marker secondary to coronavirus infection. Lifetime nonsmoker. History of cholecystectomy. Plan: Plan dated 09/08/2020. The patient is currently in the intensive care unit, having been moved there yesterday, for worsening oxygenation. The patient is on 15 L high flow nasal cannula, and a nonrebreather mask. The patient has received REM and TOCI, and continues on Decadron, Lovenox, and vitamins. Prognosis is very guarded. The patient is apparently stated numerous times, that he does not want intubation and mechanical ventilation. We will except his wishes. We will continue to follow. Prognosis is very guarded. Plan dated 09/09/2020. Currently, the patient has received all the appropriate medications that he should receive. He has received REM, and TOCI, as well as Decadron, Lovenox, vitamin C, vitamin D3, and zinc. The patient's overall situation is unchanged. He is adamant about not going on mechanical ventilation. He remains on the nonrebreather mass as well as 15 L high flow nasal cannula. Chest x-ray continues to show diffuse bilateral infiltrates. Prognosis is guarded. Plan dated 09/10/2020. Currently, although the patient's chest x-ray has not appreciably changed, the patient's oxygenation has improved. She is currently just on 15 L high flow nasal cannula. Is not using a nonrebreather mask anymore. We will continue to follow and make recommendations where appropriate. Prognosis still remains very guarded. The patient has received all appropriate treatment at this time. Time with Patient: Less than 30
[2020-09-10] MEDS: ALBUTEROL HFA INHALER INHALATION SCH ×3 (08:46→21:06)
[2020-09-10] MEDS: ZINC SULFATE 220 MG CAP PO SCH (08:52)
[2020-09-10] MEDS: ASCORBIC ACID 500 MG TAB PO SCH (08:52)
[2020-09-10] MEDS: CHOLECALCIFEROL 25 MCG (1000 IU) TABLET PO SCH (08:52)
[2020-09-10] MEDS: ENOXAPARIN 40 MG/0.4 ML SYRINGE SQ SCH ×2 (08:53→19:59)
[2020-09-10] MEDS: dexAMETHasone 2 MG TAB PO SCH ×2 (08:53→19:59)
[2020-09-10] MEDS: guaiFENesin-DM 600/30MG 1 EACH TAB.ER.12H PO SCH ×2 (08:53→21:45)
--- NOTE | 2020-09-10 10:01 | XR ---
EXAMINATION TYPE: XR chest 1V portable DATE OF EXAM: 09/10/2020 COMPARISON: Chest x-ray 09/09/2020 HISTORY: Pneumonia TECHNIQUE: Single frontal view of the chest is obtained. FINDINGS: There is no significant interval change. IMPRESSION: Correlate for pneumonia.
--- NOTE | 2020-09-10 12:58 | P.PN ---
Subjective This is a 65-year-old male who was recently admitted with COVID-19 pneumonia, acute bilateral pneumonia and respiratory status worsened and patient was transferred to the ICU for close monitoring. Barrel Marker along with pulmonary and infectious disease following closely as well. Patient has received Remdesivir along with Actemra. Urology is also maintained on dexamethasone along with vitamins and zinc supplements and Lovenox and will continue. Patient is currently maintained on 15 L high flow oxygen along with nonrebreather. Patient has made wishes of not wanting to be on mechanical vent if respiratory status continues to deteriorate. Patient is alert and oriented 3. Patient is tolerating oral intake although continues to have minimal intake noted. Discussed the case with Dr. sawant, is going to try Megace for now. Patient s tates he is going to the bathroom with no difficulties. D-dimer is elevated again at 2.93, CBC and BMP within normal limits, Patient is currently kept on albuterol, dexamethasone, Lovenox, he is also on vitamin C, D and zinc. 09/10/2020 Date patient was sitting up in chair, he feels better, he still dyspneic and tachypneic with oxygen saturation of 89 percent on 15 L oxygen via high flow nasal cannula. Other vitals are stable : Afebrile. Labs including CBC and BMP and liver enzymes are reviewed with no significant change. D-dimer is went up 2.5 up to 3.5. Pro-calcitonin is still normal at 0.08. Sputum culture is growing Kaylin only. Chest x-ray: Showing pneumonia with no significant interval change. No new medication today remains on dexamethasone, Lovenox, vitamin cocktail and baby aspirin. Objective - Vital Signs Vital signs: Vital Signs Temp 98 F 09/10/20 08:00 Pulse 66 09/10/20 08:00 Resp 18 09/10/20 08:00 BP 138/86 09/10/20 08:00 Pulse Ox 89 L 09/10/20 08:46 Intake & Output 09/09/20 09/10/20 09/10/20 18:59 06:59 18:59 Intake Total 100 250 Output Total 0 760 375 Balance 0 -660 -125 Intake: Intake, IV Titration 100 Amount Fluconazole in NaCl,Iso- 100 Osm 200 mg In Saline 1 100ml.bag @ 100 mls/hr IVPB Q24H [facility] Rx#: [id number] Oral 250 Output: Urine 0 760 375 Other: Voiding Method Urinal Urinal Urinal # Voids 1 - Exam GENERAL: The patient is alert and oriented x3, not in any acute distress. Well developed, well nourished. HEENT: Pupils are round and equally reacting to light. EOMI. No scleral icterus. No conjunctival pallor. Normocephalic, atraumatic. No pharyngeal erythema. No thyromegaly. CARDIOVASCULAR: S1 and S2 present. No murmurs, rubs, or gallops. -PULMONARY: Chest is clear to auscultation, no wheezing or crackles.normoactive bowel sounds. No palpable organomegaly. MUSCULOSKELETAL: No joint swelling or deformity. EXTREMITIES: No cyanosis, clubbing, or pedal edema. NEUROLOGICAL: Gross neurological examination did not reveal any focal deficits. SKIN: No rashes. no petechiae. - Labs CBC & Chem 7: 09/10/20 03:28 09/10/20 03:28 Labs: Abnormal Lab Results - Last 24 Hours (Table) 09/10/20 09/10/20 09/10/20 Range/Units 03:28 03:28 03:28 Plt Count 550 H (150-450) k/uL Lymphocytes # 0.6 L (1.0-4.8) k/uL D-Dimer 3.54 H (<0.60) mg/L FEU Chloride 97 L (98-107) mmol/L Carbon Dioxide 36 H (22-30) mmol/L BUN 24 H (9-20) mg/dL Creatinine 0.65 L (0.66-1.25) mg/dL Glucose 134 H (74-99) mg/dL ALT 77 H (4-49) U/L C-Reactive Protein 1.9 H (<1.0) mg/dL Total Protein 5.6 L (6.3-8.2) g/dL Albumin 2.6 L (3.5-5.0) g/dL Microbiology - Last 24 Hours (Table) 09/05/20 17:35 Blood Culture - Preliminary Blood No Growth after 96 hours Assessment and Plan Assessment: Acute COVID-19 infection with acute bilateral interstitial pneumonia with acute hypoxic respiratory failure Kaylin albicans from the sputum thrombocytopenia elevated d-dimer without any evidence of acute pulmonary embolism or deep vein thrombosis Elevated inflammatory markers of COVID-19 Hypokalemia Elevated random glucose Hypocalcemia Increased AST, ALT possibly hepatitis secondary to COVID-19 elevated CRP history of cholecystectomy Obesity with body mass index of 32 Full code with no mechanical ventilation Plan: This is a pleasant 65 years old male who presents with cough and bilateral pneumonia. Continue with multiple vitamin cocktail with vitamin D, C AND ZINC .continue with dexamethasone Infectious disease and pulmonary on the case Labs and medication were reviewed.. Continue same treatment. Continue with symptomatic treatment. Resume home medication. Monitor lytes and vitals. DVT and GI prophylaxis. Further recommendationsas per clinical course of the patient DVT prophylaxis: Subcutaneous Lovenox GI Prophylaxis: Pepcid Prognosis is guarded
[2020-09-10 15:22] VITALS: BMI 34.2
--- NOTE | 2020-09-10 17:46 | PN ---
PROGRESS NOTE DATE OF SERVICE: 09/10/2020 REASON FOR FOLLOWUP: COVID pneumonia. INTERVAL HISTORY: The patient is afebrile. The patient is breathing comfortably. He is currently on ( ) L high-flow nasal oxygen. Denies any worsening shortness of breath. The patient denies any chest pain. Did have a cough with occasional sputum. No hemoptysis. No nausea, vomiting. No abdominal pain, no diarrhea. PHYSICAL EXAMINATION: Blood pressure 127/70 with a pulse of 83, temperature 98. He is 94% on ( ) L high- flow oxygen. General description is a middle-aged male up in the chair in no distress. Respiratory system: Unlabored breathing, decreased breath sounds. Heart: S1-S2. Regular rate and rhythm. Abdomen soft, no tenderness. LABS: Hemoglobin 14.1, white count 8.4. D-dimer is up to 3.4. Creatinine 0.65. Glucose is normal. DIAGNOSTIC IMPRESSION AND PLAN: Patient has acute respiratory failure secondary to COVID-19 infection. Clinically not behaving as a secondary bacterial pneumonia. Patient has received Remdesivir ( ) currently on dexamethasone, zinc ( ). Monitor clinical course closely. Continue supportive care. MMODL / IJN: [id number] /
[2020-09-10] MEDS: ASPIRIN 81 MG PO SCH (19:59)
[2020-09-10] MEDS: FLUCONAZOLE IN NACL,ISO-OSM 200 MG in SALINE 1 100ML.BAG IVPB SCH (20:00)
[2020-09-10] MEDS: MELATONIN 5 MG TABLET PO SCH (21:45)
[2020-09-11] MEDS: ASCORBIC ACID 500 MG TAB PO SCH (06:54)
[2020-09-11] MEDS: CHOLECALCIFEROL 25 MCG (1000 IU) TABLET PO SCH (06:54)
[2020-09-11] MEDS: ZINC SULFATE 220 MG CAP PO SCH (06:54)
[2020-09-11] MEDS: dexAMETHasone 2 MG TAB PO SCH ×2 (06:54→20:50)
[2020-09-11] MEDS: ENOXAPARIN 40 MG/0.4 ML SYRINGE SQ SCH ×2 (06:55→20:50)
[2020-09-11] MEDS: guaiFENesin-DM 600/30MG 1 EACH TAB.ER.12H PO SCH ×2 (06:55→20:50)
[2020-09-11] MEDS: ALBUTEROL HFA INHALER INHALATION SCH ×3 (09:05→20:41)
--- NOTE | 2020-09-11 13:15 | P.PN ---
Subjective Progress Note Date: 09/11/20 Principal diagnosis: Acute hypoxemic respiratory failure secondary to coronavirus pneumonia. Acute hypoxic respiratory failure secondary to COVID-19 pneumonia. This is a 65-year-old white male patient who resides in [place], [place], and is currently in [place] visiting his daughter, presented to the emergency department on 09/01/2020 for evaluation of one week's worth of symptoms of a respiratory illness. Patient states that his symptoms include cough, fever, shortness of breath, loss of taste, generalized weakness, body aches, and diarrhea. He stated that he bought COVID 19 test kit at [facility] on 08/29/2020 which was reportedly positive. He states his is also sick with COVID-19, however not requiring hospitalization. Patient [place] with [place], and he stated he was not wearing a mask. He denies any obvious sick contacts. However he was not vaccinated for COVID-19. Denies any major medical history, patient is a lifetime nonsmoker, his had a previous history of cholecystectomy, denies any history of diabetes. Home medications include melatonin and a baby aspirin at bedtime. His chest x-ray on admission showed patchy airspace disease bilaterally. Patient was febrile on presentation with temp of 101.1F. He was placed on supplemental oxygen, currently requiring 3 L of oxygen a pulse ox of 92%, his rapid COVID-19 test in the [facility] was negative, influenza and RSV screen were also negative. Admission laboratory showed a white blood cell count 5.7, hemoglobin of 15.4, platelet count was 121, lymphocyte count was 0.6, d-dimer was 0.71, potassium is 3.0, sodium is 138, CO2 is 33, BUN is 16 creatinine 0.63, plasma lactic acid was 1.1, his AST and ALT were elevated at 114 and 1 await respectively, alkaline phosphatase is 68, CRP is 14.6, pro calcitonin level was negative at 0.16. Urinalysis but elevated urine specific gravity of greater than 1.050, 3+ protein, and 1+ ketone, but no clear evidence of infection. Initially patient was started on azithromycin and Rocephin which has since been discontinued in view of negative pro calcitonin, Decadron was added at 6 mg daily dose, patient was placed on Lovenox for DVT prophylaxis, he was started on multivitamins including vitamin D, zinc, and vitamin C. CTA chest showed no evidence of pulmonary embolism, it did show patchy bilateral pulmonary infiltrates consistent with multifocal pneumonia. No pleural fluid seen to suggest heart failure. On 09/03/2020 patient seen in follow-up on medical surgical floor, he is awake, he is resting in bed, looks fatigued, still having some low-grade fevers, with a T-max of 100.1F early this morning, he is on 4 L of oxygen pulse ox is 93%, hemodynamically stable, denies any chest discomfort, has occasional dry cough. Today is day 2 of Remdesivir, remains on Decadron 6 mg daily, remains on the vitamins, prophylactic Lovenox, Rocephin was restarted however 2 sets of pro calcitonin came back low at 0.16, suggesting absence of bacterial infection. His appetite is quite poor, he has 0.9 normal saline infusing at 20 ML per hour, he still having some diarrhea. On 09/04/2020 patient seen in follow-up on medical surgical floor, his oxygen requirements have increased and patient is currently on 7 L of oxygen up from 4 L of oxygen yesterday, his pulse ox is 90-92%, has occasional dry nonproductive cough, he is feeling weak, appetite is poor. No chest discomfort, he did have a fever 102.8F yesterday in the afternoon, overnight his fever pattern has been improved, and distal low-grade temp at this morning with a temp of 99.7F, today is day 3 of Remdesivir, he continues on Decadron, prophylactic Lovenox, and multivitamins. His send out PCR test for COVID-19 is still pending. Today's labs have been reviewed, white blood cell count is 7.42, hemoglobin is 13.9, d- dimer is 1.21, sodium is 141, potassium is 4.9, BUN is 16, creatinine 0.5. His LDH is 550, his Legionella urine antigen was negative. Just had one bowel movement in the last 24 hours. Patient is voiding. Chest x-ray shows moderate to marked diffuse patchy opacities. May be slightly worsened compared admission chest x-ray. The patient is seen today 09/05/2020 in follow-up on the regular medical floor. He is currently resting comfortably in bed. Awake and alert in no acute distress. He is maintaining O2 saturations in the 90s on 6 L high flow nasal cannula. He did have a temp of 100.6 early this morning but is currently afebrile. Hemodynamically stable. Still with some dyspnea on minimal exertion. Sputum culture pending. No chest x-ray today. No new labs today. This is day #4 of Remdesivir. He remains on Lovenox, Decadron, vitamin supplements. The patient seen today 09/06/2020 in follow-up on the regular medical floor. He is currently sitting up in a chair at the bedside. Awake and alert in no acute distress. His oxygen requirements have gone up however he is on 15 L high flow nasal cannula to maintain O2 saturation 88-92%. Chest x-ray continues to show bilateral patchy infiltrates bilaterally. This is day #5 of his Remdesivir. He remains on Decadron 6 mg daily, Lovenox 40 mg daily, vitamin supplements. D- dimer 1.9 to today. Reevaluated today on 09/07/2020, patient seems to be doing a bit worse, he required placement on a nonrebreather mask today, O2 saturation is in the low 90s. Patient felt congested and his 15 L high flow cannula was changed to a nonrebreather mask. Chest x-ray showed worsening infiltrates bilaterally. Patient received toci yesterday, he finished a full course of REM , he is on Decadron 6 mg twice a day, he is also on Lovenox 40 mg subcu twice a day. I did recommend a dose of Lasix today. Patient was transferred to the ICU mostly because of his worsening pulmonary status. Although I did discuss potential requirement for intubation mechanical ventilation, and the patient clearly stated to me that he would rather and not and up on mechanical ventilation. And he was very certain about this decision CBC is relatively normal today. D- dimer is 2.58. LDH is down a bit at 531 however his C-reactive protein is up to 13.9. Progress note dated 09/08/2020. The patient was admitted to the hospital on September 01 with an episode of coronavirus pneumonia. The patient received REM, and TOCI, and is receiving Decadron, Lovenox, and vitamins such as vitamin C, D3, and zinc. The patient was transferred to the intensive care unit on September 07 for worsening hypoxemic respiratory failure. Currently, the patient is on 15 L high flow nasal cannula, as well as a nonrebreather mask. The patient is not receiving any IV fluids. According to my partner's notes, the patient would not want intubation and mechanical ventilation, and would rather secondary to pneumonia. Hence, we will do everything short of putting him on mechanical ventilation. CBC is completely normal. D-dimer is 2.93. Sodium 139, potassium 3.5, chlorides 96, CO2 37, anion gap 6, BUN 26, and creatinine 0.68. Chest x-ray shows bilateral airspace disease, consistent with coronavirus pneumonia. Progress note dated 09/09/2020. This patient is a 65-year-old male who was admitted to the hospital on September 01, with coronavirus pneumonia. The patient received REM, and TOCI. In addition, the patient is receiving Decadron, Lovenox, and vitamin. The patient was transferred to the intensive care unit on September 07 worsening oxygenation and acute respiratory failure. Currently, the patient remains on 15 L high flow nasal O2, and a nonrebreather mask. The patient is adamant about not being intubated and mechanically ventilated. He apparently told my partner that he would rather than go on the ventilator. He's not receiving any IV fluids. Patient is about the same today as he was yesterday. CBC shows a white count of 7.7, hemoglobin 13.9, and a platelet count of 507,000. Sodium 139, potassium 4.6, chlorides 98, CO2 37, anion gap 4, BUN 24, and creatinine 0.73. Sputum is as far negative only showing evidence of Kaylin albicans. Chest x-ray shows diffuse bilateral infiltrates. Progress note dated 09/10/2020. 65-year-old male, who was admitted to the hospital on September 01 with Covid 19 pneumonia. The patient received REM and TOCI, as well as Decadron, Lovenox, and the usual vitamins. The patient was recently transferred to the intensive care unit on September 07 for worsening hypoxemic respiratory failure. There he made it very clear to my partner, but he did not want intubation or mechanical ventilation. Over the last couple days at least since seeing him, the patient was on 15 L high flow nasal cannula, as well as a nonrebreather mass. His oxygenation has improved, and now is just on the 15 L high flow oxygen. Saturations are 90-92%. The patient is not receiving any IV fluids. White count 8.4, hemoglobin 14.8, hematocrit 46.1, platelet count 550,000. D-dimer is 3.54. Sodium 137, potassium 4.4, chlorides 97, CO2 36, anion gap 4, BUN 24, and creatinine 0.65. The patient's pro-calcitonin level is very low at 0.08. The patient's chest x-ray continues to show bilateral opacifications and infiltrates, consistent with coronavirus pneumonia. Progress note dated 09/11/2020. 65-year-old male admitted to the hospital on September 01 with coronavirus pneumonia. The patient had been in the ICU the last few days. He's received all appropriate therapies including REM, TOCI, Decadron, Lovenox, and vitamins. Clinically, the patient's doing much better. Prolonged. A time he was on both a 15 L high flow oxygen and a nonrebreather mask. Currently he is been turned down to 9 L high flow oxygen. Earlier today he was on 11 L. Saturations are 90-94% range temperature is normal. Blood pressure is normal. Clinically, the patient is feeling much improved. No new labs today to report. Objective - Vital Signs Vital signs: Vital Signs Temp 97.8 F 09/11/20 11:02 Pulse 82 09/11/20 11:02 Resp 17 09/11/20 11:02 BP 117/78 09/11/20 11:02 Pulse Ox 93 L 09/11/20 11:23 Intake & Output 09/10/20 09/11/20 09/11/20 18:59 06:59 18:59 Intake Total 650 Output Total 375 Balance 275 Weight 96.4 kg Intake: Oral 650 Output: Urine 375 Other: Voiding Method Urinal Urinal # Voids 2 - Exam Oriented 3, currently on 9 L high flow nasal cannula. Mild conversational dyspnea. Saturations are 93%. HEENT examination is grossly unremarkable. Neck supple. Full range of motion. No adenopathy thyromegaly or neck vein distention. Cardiovascular examination reveals regular rhythm rate. S1-S2 normal. No S3 or S4. No discernible murmur noted. Heart sounds are very distant. Heart rate 82 bpm. Lungs reveal diffuse bilateral coarse rhonchi and crackles. No wheezes. Breath sounds are equal bilaterally but diminished throughout. Abdomen soft bowel sounds are heard. No masses or tenderness. Extremities are intact. No cyanosis clubbing or edema. Skin is without rash or lesion. Neurologic examination is brief but nonfocal. - Labs CBC & Chem 7: 09/10/20 03:28 09/10/20 03:28 Labs: Microbiology - Last 24 Hours (Table) 09/05/20 17:35 Blood Culture - Preliminary Blood No Growth after 120 hours Assessment and Plan Assessment: Acute hypoxemic respiratory failure secondary to COVID 19 pneumonia. Elevated inflammatory marker secondary to coronavirus infection. Lifetime nonsmoker. History of cholecystectomy. Plan: Plan dated 09/08/2020. The patient is currently in the intensive care unit, having been moved there yesterday, for worsening oxygenation. The patient is on 15 L high flow nasal cannula, and a nonrebreather mask. The patient has received REM and TOCI, and continues on Decadron, Lovenox, and vitamins. Prognosis is very guarded. The patient is apparently stated numerous times, that he does not want intubation and mechanical ventilation. We will except his wishes. We will continue to follow. Prognosis is very guarded. Plan dated 09/09/2020. Currently, the patient has received all the appropriate medications that he should receive. He has received REM, and TOCI, as well as Decadron, Lovenox, vitamin C, vitamin D3, and zinc. The patient's overall situation is unchanged. He is adamant about not going on mechanical ventilation. He remains on the nonrebreather mass as well as 15 L high flow nasal cannula. Chest x-ray continues to show diffuse bilateral infiltrates. Prognosis is guarded. Plan dated 09/10/2020. Currently, although the patient's chest x-ray has not appreciably changed, the patient's oxygenation has improved. She is currently just on 15 L high flow nasal cannula. Is not using a nonrebreather mask anymore. We will continue to follow and make recommendations where appropriate. Prognosis still remains very guarded. The patient has received all appropriate treatment at this time. Plan dated 09/11/2020. The patient continues to improve. Over the last couple days he was on 15 L high flow nasal cannula plus a nonrebreather mass. He's been weaned off the nonrebreather mask. His FiO2 has been weaned down to 9 L high flow nasal cannula. He continues to show improvement. We will continue to follow make recommendations where appropriate. Prognosis is guarded. Time with Patient: Less than 30
--- NOTE | 2020-09-11 13:56 | P.PN ---
Subjective This is a 65-year-old male who was recently admitted with COVID-19 pneumonia, acute bilateral pneumonia and respiratory status worsened and patient was transferred to the ICU for close monitoring. Audit Analyst along with pulmonary and infectious disease following closely as well. Patient has received Remdesivir along with Actemra. Urology is also maintained on dexamethasone along with vitamins and zinc supplements and Lovenox and will continue. Patient is currently maintained on 15 L high flow oxygen along with nonrebreather. Patient has made wishes of not wanting to be on mechanical vent if respiratory status continues to deteriorate. Patient is alert and oriented 3. Patient is tolerating oral intake although continues to have minimal intake noted. Discussed the case with Dr. sawant, is going to try Megace for now. Patient s tates he is going to the bathroom with no difficulties. D-dimer is elevated again at 2.93, CBC and BMP within normal limits, Patient is currently kept on albuterol, dexamethasone, Lovenox, he is also on vitamin C, D and zinc. 09/10/2020 Date patient was sitting up in chair, he feels better, he still dyspneic and tachypneic with oxygen saturation of 89 percent on 15 L oxygen via high flow nasal cannula. Other vitals are stable : Afebrile. Labs including CBC and BMP and liver enzymes are reviewed with no significant change. D-dimer is went up 2.5 up to 3.5. Pro-calcitonin is still normal at 0.08. Sputum culture is growing Kaylin only. Chest x-ray: Showing pneumonia with no significant interval change. No new medication today remains on dexamethasone, Lovenox, vitamin cocktail and baby aspirin. 09/11/2020 Patient today feeling comfortable not in distress. His oxygen saturation came down to from 15 L/m down to 9 L/m. C-reactive protein improved yesterday 3.2 down to 1.9. D-dimer was 3.5 Calcitonin is negative. Continue with Lovenox, dexamethasone, and vitamin C D and zinc Objective - Vital Signs Vital signs: Vital Signs Temp 97.8 F 09/11/20 11:02 Pulse 82 09/11/20 11:02 Resp 17 09/11/20 11:02 BP 117/78 09/11/20 11:02 Pulse Ox 93 L 09/11/20 11:23 Intake & Output 09/10/20 09/11/20 09/11/20 18:59 06:59 18:59 Intake Total 650 Output Total 375 Balance 275 Weight 96.4 kg Intake: Oral 650 Output: Urine 375 Other: Voiding Method Urinal Urinal # Voids 2 - Exam GENERAL: The patient is alert and oriented x3, not in any acute distress. Well developed, well nourished. HEENT: Pupils are round and equally reacting to light. EOMI. No scleral icterus. No conjunctival pallor. Normocephalic, atraumatic. No pharyngeal erythema. No thyromegaly. CARDIOVASCULAR: S1 and S2 present. No murmurs, rubs, or gallops. -PULMONARY: Chest is clear to auscultation, no wheezing or crackles.normoactive bowel sounds. No palpable organomegaly. MUSCULOSKELETAL: No joint swelling or deformity. EXTREMITIES: No cyanosis, clubbing, or pedal edema. NEUROLOGICAL: Gross neurological examination did not reveal any focal deficits. SKIN: No rashes. no petechiae. - Labs CBC & Chem 7: 09/10/20 03:28 09/10/20 03:28 Labs: Microbiology - Last 24 Hours (Table) 09/05/20 17:35 Blood Culture - Preliminary Blood No Growth after 120 hours Assessment and Plan Assessment: Acute COVID-19 infection with acute bilateral interstitial pneumonia with acute hypoxic respiratory failure Kaylin albicans from the sputum thrombocytopenia elevated d-dimer without any evidence of acute pulmonary embolism or deep vein thrombosis Elevated inflammatory markers of COVID-19 Hypokalemia Elevated random glucose Hypocalcemia Increased AST, ALT possibly hepatitis secondary to COVID-19 elevated CRP history of cholecystectomy Obesity with body mass index of 32 Full code with no mechanical ventilation Plan: This is a pleasant 65 years old male who presents with cough and bilateral pneumonia. Continue with multiple vitamin cocktail with vitamin D, C AND ZINC .continue with dexamethasone Infectious disease and pulmonary on the case Labs and medication were reviewed.. Continue same treatment. Continue with symptomatic treatment. Resume home medication. Monitor lytes and vitals. DVT and GI prophylaxis. Further recommendationsas per clinical course of the patient DVT prophylaxis: Subcutaneous Lovenox GI Prophylaxis: Pepcid Prognosis is guarded
--- NOTE | 2020-09-11 17:49 | PN ---
PROGRESS NOTE DATE OF SERVICE: 09/11/2020 REASON FOR FOLLOWUP: COVID-19 pneumonia. INTERVAL HISTORY: Patient is afebrile. The patient is breathing more comfortably. The patient's FiO2 is 90. The patient denies having any chest pain. No worsening cough or sputum production. No abdominal pain, no diarrhea. PHYSICAL EXAMINATION: Blood pressure 129/83, pulse of 99, temperature 96.8, oxygen saturation 98% on 2L nasal cannula. GENERAL DESCRIPTION: Is a middle-aged male up in the chair in no distress. RESPIRATORY SYSTEM: Unlabored breathing. Chest exam was deferred. LABS: No new labs have been obtained today. DIAGNOSTIC IMPRESSION AND PLAN: Patient with acute COVID-19 pneumonia in this patient who has shown overall clinical improvement. The patient has completed his remdesivir therapy and received Actemra. He is currently on Lovenox. ( ) along with respiratory support and monitor clinical course closely. MMODL / IJN: [id number] /
[2020-09-11] MEDS: FLUCONAZOLE IN NACL,ISO-OSM 200 MG in SALINE 1 100ML.BAG IVPB SCH (20:49)
[2020-09-11] MEDS: ASPIRIN 81 MG PO SCH (20:50)
[2020-09-11] MEDS: MELATONIN 5 MG TABLET PO SCH (20:50)
[2020-09-11 22:39] LABS: LD Isoenzymes 1 16 % (19-38); LD Isoenzymes 2 35 % (30-43); LD Isoenzymes 3 25 % (16-26); LD Isoenzymes 4 12 % (3-12); LD Isoenzymes 5 12 % (3-14); Lactacte Dehydrogenase(LD) ISO 380 U/L (120-250)
[2020-09-11 22:39] LABS: LD Isoenzymes 1 17 % (19-38); LD Isoenzymes 2 36 % (30-43); LD Isoenzymes 3 25 % (16-26); LD Isoenzymes 4 10 % (3-12); LD Isoenzymes 5 12 % (3-14); Lactacte Dehydrogenase(LD) ISO 446 U/L (120-250)
[2020-09-12] MEDS: ZINC SULFATE 220 MG CAP PO SCH (06:47)
[2020-09-12] MEDS: ASCORBIC ACID 500 MG TAB PO SCH (06:47)
[2020-09-12] MEDS: CHOLECALCIFEROL 25 MCG (1000 IU) TABLET PO SCH (06:47)
[2020-09-12] MEDS: dexAMETHasone 2 MG TAB PO SCH ×2 (06:47→21:42)
[2020-09-12] MEDS: guaiFENesin-DM 600/30MG 1 EACH TAB.ER.12H PO SCH ×2 (06:48→21:42)
[2020-09-12] MEDS: ENOXAPARIN 40 MG/0.4 ML SYRINGE SQ SCH ×2 (06:48→21:42)
[2020-09-12] MEDS: ALBUTEROL HFA INHALER INHALATION SCH ×3 (08:34→20:30)
--- NOTE | 2020-09-12 13:55 | P.PN ---
Subjective Progress Note Date: 09/12/20 Principal diagnosis: Acute hypoxemic respiratory failure secondary to coronavirus pneumonia. Acute hypoxic respiratory failure secondary to COVID-19 pneumonia. This is a 65-year-old white male patient who resides in [place], [place], and is currently in [place] visiting his daughter, presented to the emergency department on 09/01/2020 for evaluation of one week's worth of symptoms of a respiratory illness. Patient states that his symptoms include cough, fever, shortness of breath, loss of taste, generalized weakness, body aches, and diarrhea. He stated that he bought COVID 19 test kit at [facility] on 08/29/2020 which was reportedly positive. He states his is also sick with COVID-19, however not requiring hospitalization. Patient [place], and he stated he was not wearing a mask. He denies any obvious sick contacts. However he was not vaccinated for COVID-19. Denies any major medical history, patient is a lifetime nonsmoker, his had a previous history of cholecystectomy, denies any history of diabetes. Home medications include melatonin and a baby aspirin at bedtime. His chest x-ray on admission showed patchy airspace disease bilaterally. Patient was febrile on presentation with temp of 101.1F. He was placed on supplemental oxygen, currently requiring 3 L of oxygen a pulse ox of 92%, his rapid COVID-19 test in the [facility] was negative, influenza and RSV screen were also negative. Admission laboratory showed a white blood cell count 5.7, hemoglobin of 15.4, platelet count was 121, lymphocyte count was 0.6, d-dimer was 0.71, potassium is 3.0, sodium is 138, CO2 is 33, BUN is 16 creatinine 0.63, plasma lactic acid was 1.1, his AST and ALT were elevated at 114 and 1 await respectively, alkaline phosphatase is 68, CRP is 14.6, pro calcitonin level was negative at 0.16. Urinalysis but elevated urine specific gravity of greater than 1.050, 3+ protein, and 1+ ketone, but no clear evidence of infection. Initially patient was started on azithromycin and Rocephin which has since been discontinued in view of negative pro calcitonin, Decadron was added at 6 mg daily dose, patient was placed on Lovenox for DVT prophylaxis, he was started on multivitamins including vitamin D, zinc, and vitamin C. CTA chest showed no evidence of pulmonary embolism, it did show patchy bilateral pulmonary infiltrates consistent with multifocal pneumonia. No pleural fluid seen to suggest heart failure. On 09/03/2020 patient seen in follow-up on medical surgical floor, he is awake, he is resting in bed, looks fatigued, still having some low-grade fevers, with a T-max of 100.1F early this morning, he is on 4 L of oxygen pulse ox is 93%, hemodynamically stable, denies any chest discomfort, has occasional dry cough. Today is day 2 of Remdesivir, remains on Decadron 6 mg daily, remains on the vitamins, prophylactic Lovenox, Rocephin was restarted however 2 sets of pro calcitonin came back low at 0.16, suggesting absence of bacterial infection. His appetite is quite poor, he has 0.9 normal saline infusing at 20 ML per hour, he still having some diarrhea. On 09/04/2020 patient seen in follow-up on medical surgical floor, his oxygen requirements have increased and patient is currently on 7 L of oxygen up from 4 L of oxygen yesterday, his pulse ox is 90-92%, has occasional dry nonproductive cough, he is feeling weak, appetite is poor. No chest discomfort, he did have a fever 102.8F yesterday in the afternoon, overnight his fever pattern has been improved, and distal low-grade temp at this morning with a temp of 99.7F, today is day 3 of Remdesivir, he continues on Decadron, prophylactic Lovenox, and multivitamins. His send out PCR test for COVID-19 is still pending. Today's labs have been reviewed, white blood cell count is 7.42, hemoglobin is 13.9, d- dimer is 1.21, sodium is 141, potassium is 4.9, BUN is 16, creatinine 0.5. His LDH is 550, his Legionella urine antigen was negative. Just had one bowel movement in the last 24 hours. Patient is voiding. Chest x-ray shows moderate to marked diffuse patchy opacities. May be slightly worsened compared admission chest x-ray. The patient is seen today 09/05/2020 in follow-up on the regular medical floor. He is currently resting comfortably in bed. Awake and alert in no acute distress. He is maintaining O2 saturations in the 90s on 6 L high flow nasal cannula. He did have a temp of 100.6 early this morning but is currently afebrile. Hemodynamically stable. Still with some dyspnea on minimal exertion. Sputum culture pending. No chest x-ray today. No new labs today. This is day #4 of Remdesivir. He remains on Lovenox, Decadron, vitamin supplements. The patient seen today 09/06/2020 in follow-up on the regular medical floor. He is currently sitting up in a chair at the bedside. Awake and alert in no acute distress. His oxygen requirements have gone up however he is on 15 L high flow nasal cannula to maintain O2 saturation 88-92%. Chest x-ray continues to show bilateral patchy infiltrates bilaterally. This is day #5 of his Remdesivir. He remains on Decadron 6 mg daily, Lovenox 40 mg daily, vitamin supplements. D- dimer 1.9 to today. Reevaluated today on 09/07/2020, patient seems to be doing a bit worse, he required placement on a nonrebreather mask today, O2 saturation is in the low 90s. Patient felt congested and his 15 L high flow cannula was changed to a nonrebreather mask. Chest x-ray showed worsening infiltrates bilaterally. Patient received toci yesterday, he finished a full course of REM , he is on Decadron 6 mg twice a day, he is also on Lovenox 40 mg subcu twice a day. I did recommend a dose of Lasix today. Patient was transferred to the ICU mostly because of his worsening pulmonary status. Although I did discuss potential requirement for intubation mechanical ventilation, and the patient clearly stated to me that he would rather and not and up on mechanical ventilation. And he was very certain about this decision CBC is relatively normal today. D- dimer is 2.58. LDH is down a bit at 531 however his C-reactive protein is up to 13.9. Progress note dated 09/08/2020. The patient was admitted to the hospital on September 01 with an episode of coronavirus pneumonia. The patient received REM, and TOCI, and is receiving Decadron, Lovenox, and vitamins such as vitamin C, D3, and zinc. The patient was transferred to the intensive care unit on September 07 for worsening hypoxemic respiratory failure. Currently, the patient is on 15 L high flow nasal cannula, as well as a nonrebreather mask. The patient is not receiving any IV fluids. According to my partner's notes, the patient would not want intubation and mechanical ventilation, and would rather secondary to pneumonia. Hence, we will do everything short of putting him on mechanical ventilation. CBC is completely normal. D-dimer is 2.93. Sodium 139, potassium 3.5, chlorides 96, CO2 37, anion gap 6, BUN 26, and creatinine 0.68. Chest x-ray shows bilateral airspace disease, consistent with coronavirus pneumonia. Progress note dated 09/09/2020. This patient is a 65-year-old male who was admitted to the hospital on September 01, with coronavirus pneumonia. The patient received REM, and TOCI. In addition, the patient is receiving Decadron, Lovenox, and vitamin. The patient was transferred to the intensive care unit on September 07 worsening oxygenation and acute respiratory failure. Currently, the patient remains on 15 L high flow nasal O2, and a nonrebreather mask. The patient is adamant about not being intubated and mechanically ventilated. He apparently told my partner that he would rather than go on the ventilator. He's not receiving any IV fluids. Patient is about the same today as he was yesterday. CBC shows a white count of 7.7, hemoglobin 13.9, and a platelet count of 507,000. Sodium 139, potassium 4.6, chlorides 98, CO2 37, anion gap 4, BUN 24, and creatinine 0.73. Sputum is as far negative only showing evidence of Kaylin albicans. Chest x-ray shows diffuse bilateral infiltrates. Progress note dated 09/10/2020. 65-year-old male, who was admitted to the hospital on September 01 with Covid 19 pneumonia. The patient received REM and TOCI, as well as Decadron, Lovenox, and the usual vitamins. The patient was recently transferred to the intensive care unit on September 07 for worsening hypoxemic respiratory failure. There he made it very clear to my partner, but he did not want intubation or mechanical ventilation. Over the last couple days at least since seeing him, the patient was on 15 L high flow nasal cannula, as well as a nonrebreather mass. His oxygenation has improved, and now is just on the 15 L high flow oxygen. Saturations are 90-92%. The patient is not receiving any IV fluids. White count 8.4, hemoglobin 14.8, hematocrit 46.1, platelet count 550,000. D-dimer is 3.54. Sodium 137, potassium 4.4, chlorides 97, CO2 36, anion gap 4, BUN 24, and creatinine 0.65. The patient's pro-calcitonin level is very low at 0.08. The patient's chest x-ray continues to show bilateral opacifications and infiltrates, consistent with coronavirus pneumonia. Progress note dated 09/11/2020. 65-year-old male admitted to the hospital on September 01 with coronavirus pneumonia. The patient had been in the ICU the last few days. He's received all appropriate therapies including REM, TOCI, Decadron, Lovenox, and vitamins. Clinically, the patient's doing much better. Prolonged. A time he was on both a 15 L high flow oxygen and a nonrebreather mask. Currently he is been turned down to 9 L high flow oxygen. Earlier today he was on 11 L. Saturations are 90-94% range temperature is normal. Blood pressure is normal. Clinically, the patient is feeling much improved. No new labs today to report. Progress note dated 09/12/2020. 65-year-old male admitted to the hospital on September 01 with coronavirus pneumonia. Patient had been in the ICU, but was transferred out a few days ago. The patient is down to about for 5 L by nasal cannula. He was seen, he was on 15 they're high flow, and combination with a nonrebreather mask. The patient has received all appropriate treatments. I told the patient that he could probably be discharged either later today or tomorrow. He would have to go home on oxygen. As long as his oxygen requirement of 4 L or less, and is doing reasonably well, he could be discharged. Clinically he is much improved. Objective - Vital Signs Vital signs: Vital Signs Temp 97.6 F 09/12/20 10:05 Pulse 87 09/12/20 10:05 Resp 18 09/12/20 10:05 BP 115/77 09/12/20 10:05 Pulse Ox 92 L 09/12/20 10:05 Intake & Output 09/11/20 09/12/20 09/12/20 18:59 06:59 18:59 Other: Voiding Method Urinal Urinal # Voids 3 - Exam Oriented 3, currently on 5 L high flow nasal cannula. No additional conversational dyspnea. Saturations are 93%. HEENT examination is grossly unremarkable. Neck supple. Full range of motion. No adenopathy thyromegaly or neck vein distention. Cardiovascular examination reveals regular rhythm rate. S1-S2 normal. No S3 or S4. No discernible murmur noted. Heart sounds are very distant. Heart rate 87 bpm. Lungs reveal diffuse bilateral coarse rhonchi and crackles. No wheezes. Breath sounds are equal bilaterally but diminished throughout. Abdomen soft bowel sounds are heard. No masses or tenderness. Extremities are intact. No cyanosis clubbing or edema. Skin is without rash or lesion. Neurologic examination is brief but nonfocal. - Labs CBC & Chem 7: 09/10/20 03:28 09/10/20 03:28 Labs: Abnormal Lab Results - Last 24 Hours (Table) 09/07/20 09/08/20 Range/Units 10:57 03:39 LD Isoenzymes 446 H 380 H (120-250) U/L LD 1 17 L 16 L (19-38) % Microbiology - Last 24 Hours (Table) 09/05/20 17:35 Blood Culture - Final Blood No Growth after 144 hours Assessment and Plan Assessment: Acute hypoxemic respiratory failure secondary to COVID 19 pneumonia. Elevated inflammatory marker secondary to coronavirus infection. Lifetime nonsmoker. History of cholecystectomy. Plan: Plan dated 09/08/2020. The patient is currently in the intensive care unit, having been moved there yesterday, for worsening oxygenation. The patient is on 15 L high flow nasal cannula, and a nonrebreather mask. The patient has received REM and TOCI, and continues on Decadron, Lovenox, and vitamins. Prognosis is very guarded. The patient is apparently stated numerous times, that he does not want intubation an d mechanical ventilation. We will except his wishes. We will continue to follow. Prognosis is very guarded. Plan dated 09/09/2020. Currently, the patient has received all the appropriate medications that he should receive. He has received REM, and TOCI, as well as Decadron, Lovenox, vitamin C, vitamin D3, and zinc. The patient's overall situation is unchanged. He is adamant about not going on mechanical ventilation. He remains on the nonrebreather mass as well as 15 L high flow nasal cannula. Chest x-ray continues to show diffuse bilateral infiltrates. Prognosis is guarded. Plan dated 09/10/2020. Currently, although the patient's chest x-ray has not appreciably changed, the patient's oxygenation has improved. She is currently just on 15 L high flow nasal cannula. Is not using a nonrebreather mask anymore. We will continue to follow and make recommendations where appropriate. Prognosis still remains very guarded. The patient has received all appropriate treatment at this time. Plan dated 09/11/2020. The patient continues to improve. Over the last couple days he was on 15 L high flow nasal cannula plus a nonrebreather mass. He's been weaned off the nonrebreather mask. His FiO2 has been weaned down to 9 L high flow nasal cannula. He continues to show improvement. We will continue to follow make recommendations where appropriate. Prognosis is guarded. Plan dated 09/12/2020. The patient is doing much better. The patient has received all appropriate med ications. He continues on all appropriate medications. A couple days ago, he was on 15 L high flow nasal cannula, and a nonrebreather mask. The patient is currently down to 5 L nasal cannula. His saturations are in the low 90s. Is clinically much improved. The patient could be considered for possible discharge. Additional recommendations and suggestions are forthcoming. We will continue to follow as long as the patient remains in the hospital. Time with Patient: Less than 30
--- NOTE | 2020-09-12 14:14 | P.PN ---
Subjective This is a 65-year-old male who was recently admitted with COVID-19 pneumonia, acute bilateral pneumonia and respiratory status worsened and patient was transferred to the ICU for close monitoring. Intensive Care Anaesthetist along with pulmonary and infectious disease following closely as well. Patient has received Remdesivir along with Actemra. Urology is also maintained on dexamethasone along with vitamins and zinc supplements and Lovenox and will continue. Patient is currently maintained on 15 L high flow oxygen along with nonrebreather. Patient has made wishes of not wanting to be on mechanical vent if respiratory status continues to deteriorate. Patient is alert and oriented 3. Patient is tolerating oral intake although continues to have minimal intake noted. Discussed the case with Dr. sawant, is going to try Megace for now. Patient s tates he is going to the bathroom with no difficulties. D-dimer is elevated again at 2.93, CBC and BMP within normal limits, Patient is currently kept on albuterol, dexamethasone, Lovenox, he is also on vitamin C, D and zinc. 09/10/2020 Date patient was sitting up in chair, he feels better, he still dyspneic and tachypneic with oxygen saturation of 89 percent on 15 L oxygen via high flow nasal cannula. Other vitals are stable : Afebrile. Labs including CBC and BMP and liver enzymes are reviewed with no significant change. D-dimer is went up 2.5 up to 3.5. Pro-calcitonin is still normal at 0.08. Sputum culture is growing Kaylin only. Chest x-ray: Showing pneumonia with no significant interval change. No new medication today remains on dexamethasone, Lovenox, vitamin cocktail and baby aspirin. 09/11/2020 Patient today feeling comfortable not in distress. His oxygen saturation came down to from 15 L/m down to 9 L/m. C-reactive protein improved yesterday 3.2 down to 1.9. D-dimer was 3.5 Calcitonin is negative. Continue with Lovenox, dexamethasone, and vitamin C D and zinc 09/12/2020 Patient breathing is improving and is oxygen saturation is low 90s on 3 L/m of oxygen via nasal cannula Patient can be considered for discharge per pulmonary services, however when we talked to the patient he prefers to go on room air which could not be happening today We will keep monitor the patient and continue with the same treatment as above Objective - Vital Signs Vital signs: Vital Signs Temp 97.6 F 09/12/20 10:05 Pulse 87 09/12/20 10:05 Resp 18 09/12/20 10:05 BP 115/77 09/12/20 10:05 Pulse Ox 94 L 09/12/20 13:53 Intake & Output 09/11/20 09/12/20 09/12/20 18:59 06:59 18:59 Other: Voiding Method Urinal Urinal # Voids 3 - Exam GENERAL: The patient is alert and oriented x3, not in any acute distress. Well developed, well nourished. HEENT: Pupils are round and equally reacting to light. EOMI. No scleral icterus. No conjunctival pallor. Normocephalic, atraumatic. No pharyngeal erythema. No thyromegaly. CARDIOVASCULAR: S1 and S2 present. No murmurs, rubs, or gallops. -PULMONARY: Chest is clear to auscultation, no wheezing or crackles.normoactive bowel sounds. No palpable organomegaly. MUSCULOSKELETAL: No joint swelling or deformity. EXTREMITIES: No cyanosis, clubbing, or pedal edema. NEUROLOGICAL: Gross neurological examination did not reveal any focal deficits. SKIN: No rashes. no petechiae. - Labs CBC & Chem 7: 09/10/20 03:28 09/10/20 03:28 Labs: Abnormal Lab Results - Last 24 Hours (Table) 09/07/20 09/08/20 Range/Units 10:57 03:39 LD Isoenzymes 446 H 380 H (120-250) U/L LD 1 17 L 16 L (19-38) % Microbiology - Last 24 Hours (Table) 09/05/20 17:35 Blood Culture - Final Blood No Growth after 144 hours Assessment and Plan Assessment: Acute COVID-19 infection with acute bilateral interstitial pneumonia with acute hypoxic respiratory failure Kaylin albicans from the sputum thrombocytopenia elevated d-dimer without any evidence of acute pulmonary embolism or deep vein thrombosis Elevated inflammatory markers of COVID-19 Hypokalemia Elevated random glucose Hypocalcemia Increased AST, ALT possibly hepatitis secondary to COVID-19 elevated CRP history of cholecystectomy Obesity with body mass index of 32 Full code with no mechanical ventilation Plan: This is a pleasant 65 years old male who presents with cough and bilateral pneumonia. Continue with multiple vitamin cocktail with vitamin D, C AND ZINC .continue with dexamethasone Infectious disease and pulmonary on the case Labs and medication were reviewed.. Continue same treatment. Continue with symptomatic treatment. Resume home medication. Monitor lytes and vitals. DVT and GI prophylaxis. Further recommendationsas per clinical course of the patient DVT prophylaxis: Subcutaneous Lovenox GI Prophylaxis: Pepcid Prognosis is guarded
--- NOTE | 2020-09-12 17:42 | PN ---
PROGRESS NOTE DATE OF SERVICE: 09/12/2020 REASON FOR FOLLOWUP: COVID-19 pneumonia. INTERVAL HISTORY: The patient is afebrile. The patient is breathing comfortably. The patient denies having any chest pain. Occasional cough. No sputum production. No nausea, no vomiting. No abdominal pain or diarrhea. PHYSICAL EXAMINATION: Blood pressure 117/77, pulse of 90, temperature 97.3, 91% on 5 L nasal cannula. General description is a middle-aged male up in the chair in no distress. Respiratory system: Unlabored breathing. Few fine crackles at the bases. No wheeze. Heart S1, S2. Regular rate and rhythm. Abdomen soft, no tenderness. LABS: Hemoglobin is 14, white count 8.4, BUN of 24, creatinine 0.65. Potassium normal. DIAGNOSTIC IMPRESSION AND PLAN: Patient with acute COVID-19 pneumonia. This patient has shown overall clinical improvement. The patient has completed Remdesivir therapy as well as Actemra. Currently on dexamethasone, to continue. No need for Diflucan, will be discontinued and monitor clinical course closely. MMODL / IJN: [id number] /
[2020-09-12 18:16] VITALS: RESP 20
[2020-09-12] MEDS: ASPIRIN 81 MG PO SCH (21:42)
[2020-09-12] MEDS: MELATONIN 5 MG TABLET PO SCH (21:42)
--- NOTE | 2020-09-13 07:26 | XR ---
EXAMINATION TYPE: XR chest 1V DATE OF EXAM: 09/13/2020 COMPARISON: 09/10/2020 HISTORY: 65 years Male. STUDY INDICATION GIVEN: : Covid Pneumonia TECHNIQUE: Portable upright chest radiograph FINDINGS AND IMPRESSION: Bilateral airspace disease consistent with multifocal pneumonia, stable in the left hemithorax, sligh tly improved in the right. No pneumothorax or pleural effusion. Mild enlargement of the cardiac silhouette again seen. Cholecystectomy clips seen in the right upper quadrant. No acute osseous abnormality seen. External tubing noted.
[2020-09-13] MEDS: ZINC SULFATE 220 MG CAP PO SCH (08:00)
[2020-09-13] MEDS: guaiFENesin-DM 600/30MG 1 EACH TAB.ER.12H PO SCH (08:00)
[2020-09-13] MEDS: ENOXAPARIN 40 MG/0.4 ML SYRINGE SQ SCH (08:00)
[2020-09-13] MEDS: CHOLECALCIFEROL 25 MCG (1000 IU) TABLET PO SCH (08:00)
[2020-09-13] MEDS: ASCORBIC ACID 500 MG TAB PO SCH (08:00)
[2020-09-13] MEDS: dexAMETHasone 2 MG TAB PO SCH (08:00)
[2020-09-13] MEDS: ALBUTEROL HFA INHALER INHALATION SCH ×2 (09:32→13:31)
[2020-09-13 09:54] VITALS: BP 142/82; PULSE 82; TEMP 97.3
--- NOTE | 2020-09-13 12:33 | P.PN ---
Subjective Progress Note Date: 09/13/20 Principal diagnosis: Acute hypoxemic respiratory failure secondary to coronavirus pneumonia. Acute hypoxic respiratory failure secondary to COVID-19 pneumonia. This is a 65-year-old white male patient who resides in [place], [place], and is currently in [place] visiting his daughter, presented to the emergency department on 09/01/2020 for evaluation of one week's worth of symptoms of a respiratory illness. Patient states that his symptoms include cough, fever, shortness of breath, loss of taste, generalized weakness, body aches, and diarrhea. He stated that he bought COVID 19 test kit at [facility] on 08/29/2020 which was reportedly positive. He states his is also sick with COVID-19, however not requiring hospitalization. Patient [place] with [place], and he stated he was not wearing a mask. He denies any obvious sick contacts. However he was not vaccinated for COVID-19. Denies any major medical history, patient is a lifetime nonsmoker, his had a previous history of cholecystectomy, denies any history of diabetes. Home medications include melatonin and a baby aspirin at bedtime. His chest x-ray on admission showed patchy airspace disease bilaterally. Patient was febrile on presentation with temp of 101.1F. He was placed on supplemental oxygen, currently requiring 3 L of oxygen a pulse ox of 92%, his rapid COVID-19 test in the [facility] was negative, influenza and RSV screen were also negative. Admission laboratory showed a white blood cell count 5.7, hemoglobin of 15.4, platelet count was 121, lymphocyte count was 0.6, d-dimer was 0.71, potassium is 3.0, sodium is 138, CO2 is 33, BUN is 16 creatinine 0.63, plasma lactic acid was 1.1, his AST and ALT were elevated at 114 and 1 await respectively, alkaline phosphatase is 68, CRP is 14.6, pro calcitonin level was negative at 0.16. Urinalysis but elevated urine specific gravity of greater than 1.050, 3+ protein, and 1+ ketone, but no clear evidence of infection. Initially patient was started on azithromycin and Rocephin which has since been discontinued in view of negative pro calcitonin, Decadron was added at 6 mg daily dose, patient was placed on Lovenox for DVT prophylaxis, he was started on multivitamins including vitamin D, zinc, and vitamin C. CTA chest showed no evidence of pulmonary embolism, it did show patchy bilateral pulmonary infiltrates consistent with multifocal pneumonia. No pleural fluid seen to suggest heart failure. On 09/03/2020 patient seen in follow-up on medical surgical floor, he is awake, he is resting in bed, looks fatigued, still having some low-grade fevers, with a T-max of 100.1F early this morning, he is on 4 L of oxygen pulse ox is 93%, hemodynamically stable, denies any chest discomfort, has occasional dry cough. Today is day 2 of Remdesivir, remains on Decadron 6 mg daily, remains on the vitamins, prophylactic Lovenox, Rocephin was restarted however 2 sets of pro calcitonin came back low at 0.16, suggesting absence of bacterial infection. His appetite is quite poor, he has 0.9 normal saline infusing at 20 ML per hour, he still having some diarrhea. On 09/04/2020 patient seen in follow-up on medical surgical floor, his oxygen requirements have increased and patient is currently on 7 L of oxygen up from 4 L of oxygen yesterday, his pulse ox is 90-92%, has occasional dry nonproductive cough, he is feeling weak, appetite is poor. No chest discomfort, he did have a fever 102.8F yesterday in the afternoon, overnight his fever pattern has been improved, and distal low-grade temp at this morning with a temp of 99.7F, today is day 3 of Remdesivir, he continues on Decadron, prophylactic Lovenox, and multivitamins. His send out PCR test for COVID-19 is still pending. Today's labs have been reviewed, white blood cell count is 7.42, hemoglobin is 13.9, d- dimer is 1.21, sodium is 141, potassium is 4.9, BUN is 16, creatinine 0.5. His LDH is 550, his Legionella urine antigen was negative. Just had one bowel movement in the last 24 hours. Patient is voiding. Chest x-ray shows moderate to marked diffuse patchy opacities. May be slightly worsened compared admission chest x-ray. The patient is seen today 09/05/2020 in follow-up on the regular medical floor. He is currently resting comfortably in bed. Awake and alert in no acute distress. He is maintaining O2 saturations in the 90s on 6 L high flow nasal cannula. He did have a temp of 100.6 early this morning but is currently afebrile. Hemodynamically stable. Still with some dyspnea on minimal exertion. Sputum culture pending. No chest x-ray today. No new labs today. This is day #4 of Remdesivir. He remains on Lovenox, Decadron, vitamin supplements. The patient seen today 09/06/2020 in follow-up on the regular medical floor. He is currently sitting up in a chair at the bedside. Awake and alert in no acute distress. His oxygen requirements have gone up however he is on 15 L high flow nasal cannula to maintain O2 saturation 88-92%. Chest x-ray continues to show bilateral patchy infiltrates bilaterally. This is day #5 of his Remdesivir. He remains on Decadron 6 mg daily, Lovenox 40 mg daily, vitamin supplements. D- dimer 1.9 to today. Reevaluated today on 09/07/2020, patient seems to be doing a bit worse, he required placement on a nonrebreather mask today, O2 saturation is in the low 90s. Patient felt congested and his 15 L high flow cannula was changed to a nonrebreather mask. Chest x-ray showed worsening infiltrates bilaterally. Patient received toci yesterday, he finished a full course of REM , he is on Decadron 6 mg twice a day, he is also on Lovenox 40 mg subcu twice a day. I did recommend a dose of Lasix today. Patient was transferred to the ICU mostly because of his worsening pulmonary status. Although I did discuss potential requirement for intubation mechanical ventilation, and the patient clearly stated to me that he would rather and not and up on mechanical ventilation. And he was very certain about this decision CBC is relatively normal today. D- dimer is 2.58. LDH is down a bit at 531 however his C-reactive protein is up to 13.9. Progress note dated 09/08/2020. The patient was admitted to the hospital on September 01 with an episode of coronavirus pneumonia. The patient received REM, and TOCI, and is receiving Decadron, Lovenox, and vitamins such as vitamin C, D3, and zinc. The patient was transferred to the intensive care unit on September 07 for worsening hypoxemic respiratory failure. Currently, the patient is on 15 L high flow nasal cannula, as well as a nonrebreather mask. The patient is not receiving any IV fluids. According to my partner's notes, the patient would not want intubation and mechanical ventilation, and would rather secondary to pneumonia. Hence, we will do everything short of putting him on mechanical ventilation. CBC is completely normal. D-dimer is 2.93. Sodium 139, potassium 3.5, chlorides 96, CO2 37, anion gap 6, BUN 26, and creatinine 0.68. Chest x-ray shows bilateral airspace disease, consistent with coronavirus pneumonia. Progress note dated 09/09/2020. This patient is a 65-year-old male who was admitted to the hospital on September 01, with coronavirus pneumonia. The patient received REM, and TOCI. In addition, the patient is receiving Decadron, Lovenox, and vitamin. The patient was transferred to the intensive care unit on September 07 worsening oxygenation and acute respiratory failure. Currently, the patient remains on 15 L high flow nasal O2, and a nonrebreather mask. The patient is adamant about not being intubated and mechanically ventilated. He apparently told my partner that he would rather than go on the ventilator. He's not receiving any IV fluids. Patient is about the same today as he was yesterday. CBC shows a white count of 7.7, hemoglobin 13.9, and a platelet count of 507,000. Sodium 139, potassium 4.6, chlorides 98, CO2 37, anion gap 4, BUN 24, and creatinine 0.73. Sputum is as far negative only showing evidence of Kaylin albicans. Chest x-ray shows diffuse bilateral infiltrates. Progress note dated 09/10/2020. 65-year-old male, who was admitted to the hospital on September 01 with Covid 19 pneumonia. The patient received REM and TOCI, as well as Decadron, Lovenox, and the usual vitamins. The patient was recently transferred to the intensive care unit on September 07 for worsening hypoxemic respiratory failure. There he made it very clear to my partner, but he did not want intubation or mechanical ventilation. Over the last couple days at least since seeing him, the patient was on 15 L high flow nasal cannula, as well as a nonrebreather mass. His oxygenation has improved, and now is just on the 15 L high flow oxygen. Saturations are 90-92%. The patient is not receiving any IV fluids. White count 8.4, hemoglobin 14.8, hematocrit 46.1, platelet count 550,000. D-dimer is 3.54. Sodium 137, potassium 4.4, chlorides 97, CO2 36, anion gap 4, BUN 24, and creatinine 0.65. The patient's pro-calcitonin level is very low at 0.08. The patient's chest x-ray continues to show bilateral opacifications and infiltrates, consistent with coronavirus pneumonia. Progress note dated 09/11/2020. 65-year-old male admitted to the hospital on September 01 with coronavirus pneumonia. The patient had been in the ICU the last few days. He's received all appropriate therapies including REM, TOCI, Decadron, Lovenox, and vitamins. Clinically, the patient's doing much better. Prolonged. A time he was on both a 15 L high flow oxygen and a nonrebreather mask. Currently he is been turned down to 9 L high flow oxygen. Earlier today he was on 11 L. Saturations are 90-94% range temperature is normal. Blood pressure is normal. Clinically, the patient is feeling much improved. No new labs today to report. Progress note dated 09/12/2020. 65-year-old male admitted to the hospital on September 01 with coronavirus pneumonia. Patient had been in the ICU, but was transferred out a few days ago. The patient is down to about for 5 L by nasal cannula. He was seen, he was on 15 they're high flow, and combination with a nonrebreather mask. The patient has received all appropriate treatments. I told the patient that he could probably be discharged either later today or tomorrow. He would have to go home on oxygen. As long as his oxygen requirement of 4 L or less, and is doing reasonably well, he could be discharged. Clinically he is much improved. Progress note dated 09/13/2020. 65-year-old male admitted to the hospital on September 01 with coronavirus pneumonia. The patient had been in the ICU for a number days, and transferred out a few days ago. The patient has been weaned down to 4-5 L nasal cannula. The patient was previously both on nonrebreather mask, and 15 L high flow cannula. Clinically he is doing much better. White count 8.4, hemoglobin 14.8, hematocrit 46.1, platelet count 550,000. D-dimer 3.54. Sodium 137, potassium 4.4, chlorides 97, CO2 36, anion gap 4, BUN and creatinine were 24 and 0.65. Pro-calcitonin level was 0.05. Chest x-ray shows diffuse bilateral infiltrates, slightly improved, consistent with coronavirus pneumonia. Objective - Vital Signs Vital signs: Vital Signs Temp 97.3 F L 09/13/20 08:00 Pulse 82 09/13/20 08:00 Resp 20 09/13/20 08:00 BP 142/82 09/13/20 08:00 Pulse Ox 91 L 09/13/20 08:00 Intake & Output 09/12/20 09/13/20 09/13/20 18:59 06:59 18:59 Weight 96.4 kg Other: Voiding Method Toilet Toilet Urinal # Voids 4 - Exam Oriented 3, currently on 4 L high flow nasal cannula. No additional conversational dyspnea. Saturations are 93%. On 2 L, the patient's saturations are 91%. HEENT examination is grossly unremarkable. Neck supple. Full range of motion. No adenopathy thyromegaly or neck vein distention. Cardiovascular examination reveals regular rhythm rate. S1-S2 normal. No S3 or S4. No discernible murmur noted. Heart sounds are very distant. Heart rate 82 bpm. Lungs reveal diffuse bilateral coarse rhonchi and crackles. No wheezes. Breath sounds are equal bilaterally but diminished throughout. Abdomen soft bowel sounds are heard. No masses or tenderness. Extremities are intact. No cyanosis clubbing or edema. Skin is without rash or lesion. Neurologic examination is brief but nonfocal. - Labs CBC & Chem 7: 09/10/20 03:28 09/10/20 03:28 Assessment and Plan Assessment: Acute hypoxemic respiratory failure secondary to COVID 19 pneumonia. Elevated inflammatory marker secondary to coronavirus infection. Lifetime nonsmoker. History of cholecystectomy. Plan: Plan dated 09/08/2020. The patient is currently in the intensive care unit, having been moved there yesterday, for worsening oxygenation. The patient is on 15 L high flow nasal ca nnula, and a nonrebreather mask. The patient has received REM and TOCI, and continues on Decadron, Lovenox, and vitamins. Prognosis is very guarded. The patient is apparently stated numerous times, that he does not want intubation and mechanical ventilation. We will except his wishes. We will continue to follow. Prognosis is very guarded. Plan dated 09/09/2020. Currently, the patient has received all the appropriate medications that he should receive. He has received REM, and TOCI, as well as Decadron, Lovenox, vitamin C, vitamin D3, and zinc. The patient's overall situation is unchanged. He is adamant about not going on mechanical ventilation. He remains on the nonrebreather mass as well as 15 L high flow nasal cannula. Chest x-ray continues to show diffuse bilateral infiltrates. Prognosis is guarded. Plan dated 09/10/2020. Currently, although the patient's chest x-ray has not appreciably changed, the patient's oxygenation has improved. She is currently just on 15 L high flow nasal cannula. Is not using a nonrebreather mask anymore. We will continue to follow and make recommendations where appropriate. Prognosis still remains very guarded. The patient has received all appropriate treatment at this time. Plan dated 09/11/2020. The patient continues to improve. Over the last couple days he was on 15 L high flow nasal cannula plus a nonrebreather mass. He's been weaned off the nonrebreather mask. His FiO2 has been weaned down to 9 L high flow nasal can nula. He continues to show improvement. We will continue to follow make recommendations where appropriate. Prognosis is guarded. Plan dated 09/12/2020. The patient is doing much better. The patient has received all appropriate medications. He continues on all appropriate medications. A couple days ago, he was on 15 L high flow nasal cannula, and a nonrebreather mask. The patient is currently down to 5 L nasal cannula. His saturations are in the low 90s. Is clinically much improved. The patient could be considered for possible discharge. Additional recommendations and suggestions are forthcoming. We will continue to follow as long as the patient remains in the hospital. Plan dated 09/13/2020. The patient could be discharged home. We'll leave that up to the primary. He is down to 4-5 L nasal cannula. On 2 L, he is 91%. Decadron can be DC'd. The patient could be sent home on Eliquis 5 mg once a day for 30 days. Additional recommendations and suggestions are forthcoming. Prognosis is guarded. The patient has made a significant recovery. Time with Patient: Less than 30
--- NOTE | 2020-09-13 13:37 | PN ---
PROGRESS NOTE DATE OF SERVICE: 09/13/2020 REASON FOR FOLLOWUP: COVID-19 pneumonia. INTERVAL HISTORY: Patient is afebrile. The patient is breathing comfortably. The patient is on 2 L nasal cannula. No chest pain. No shortness of breath. Occasional cough. No abdominal pain. No diarrhea. PHYSICAL EXAMINATION: Blood pressure 140/82 with a pulse of 82, temperature is 97.8, she is 91% on 2 L nasal cannula. General description is a middle-aged male up in the chair in no distress. Respiratory system: Unlabored breathing, decreased breath sounds at the bases, no wheeze. Heart S1, S2. Regular rate and rhythm. Abdomen is soft with no tenderness. LABS: No new labs have been obtained today. DIAGNOSTIC IMPRESSION AND PLAN: Patient with acute COVID-19 pneumonia in this patient who has shown overall clinical improvement. Has completed his Remdesivir and has received a dose of Actemra. Continue short course of oral dexamethasone on discharge and close outpatient followup. MMODL / IJN: [id number] /
--- NOTE | 2020-09-13 22:23 | P.DS ---
Providers Date of admission: 09/01/20 16:47 Attending physician: Chad Murphy Consults: 09/01/20 16:07 Consult Physician Routine Consulting Provider: Martina Montilla Consult Reason/Comments: covid, hypoxic respiratory failure Do you want consulting provider notified?: Yes 09/02/20 18:30 Consult Physician Routine Consulting Provider: Lucia Spaulding Consult Reason/Comments: fever Do you want consulting provider notified?: Yes Primary care physician: Physician Nonstaff Hospital Course: Diagnoses: Acute COVID-19 infection with acute bilateral interstitial pneumonia with acute hypoxic respiratory failure Kaylin albicans from the sputum thrombocytopenia elevated d-dimer without any evidence of acute pulmonary embolism or deep vein thrombosis Elevated inflammatory markers of COVID-19 Hypokalemia Elevated random glucose Hypocalcemia Increased AST, ALT possibly hepatitis secondary to COVID-19 elevated CRP history of cholecystectomy Obesity with body mass index of 32 Hospital course: This is a 65-year-old male who was originally from [place], and who was recently admitted with COVID-19 pneumonia, acute bilateral pneumonia and respiratory status worsened and patient was transferred to the ICU for close monitoring. [facility] along with pulmonary and infectious disease following closely as well. Patient has received Remdesivir along with Actemra. he is also maintained on dexamethasone along with vitamins and zinc supplements and Lovenox and will continue. Patient is maintained on 15 L high flow oxygen . 3-4 days ago when his oxygen saturation start improving and his oxygen requirements a drop to 2-3 L via nasal cannula today. Patient was cleared for discharge from yesterday by Dr. Roe the switchboard operator helper patient himself feels much better as and he can go home. He denies abdominal pain or chest pain. No diarrhea or vomiting. No fever Patient also qualify for home oxygen which is delivered today at bedside with the help of the caseworker intake/social scientist Patient states that he is from [place] and he has multiple home the plan to drive back to [place], patient was instructed to follow up with switchboard operator helper Dr. Roe in one week and probably after his trouble and he verbalized understanding and acceptance. His PCP is an [place]. No need for Decadron upon discharge per pulmonary services Patient also was discharged on Eliquis for 1 month per recommendation of Dr. Supriya perez. She is provided with one month of free Eliquis Problems and management plan were discussed with the patient and he verbalized understanding and acceptance Patient was found stable and can be discharged home however he needs follow-up as an outpatient. Patient was instructed to follow up with PCP within one week and patient agrees. However his PCP is an [facility] Patient was instructed to follow up with switchboard operator helper Dr. Mahajan in one week and he agrees to call and make appointment as today is weekend. Contact information is provided for him Physical exam Gen: patient is a AAOx3, no distress CVS: S1-S2, RRR, no murmur -Lungs: B/L CTA, no wheezing. on 2 L oxygen per minute via nasal cannula Abdomen: soft, no distention, no tenderness, positive bowel sounds Extremity: no leg edema or induration Time spent more than 35 minutes Patient Condition at Discharge: Fair Plan - Discharge Summary Discharge Rx Participant: No New Discharge Prescriptions: New Fluticasone Nasal Temperance [Flonase Nasal Temperance] 2 spray EA NOSTRIL DAILY PRN #1 spr PRN Reason: Allergy Symptoms Ascorbic Acid [Vitamin C] 500 mg PO DAILY #30 tab Apixaban [Eliquis] 5 mg PO DAILY 30 Days #30 tablet Zinc Sulfate [Orazinc] 220 mg PO DAILY #30 cap Acetaminophen Tab [Tylenol] 650 mg PO Q6HR PRN tab PRN Reason: Mild Pain Or Fever > 100.5 Albuterol Inhaler [Ventolin Hfa Inhaler] 2 puff INHALATION RT-TID #1 inh Cholecalciferol [Vitamin D3 (25 Mcg = 1000 Iu)] 50 mcg PO DAILY #30 tablet Continue Melatonin 10 mg PO HS Aspirin EC [Ecotrin Low Dose] 81 mg PO HS Discharge Medication List Aspirin EC [Ecotrin Low Dose] 81 mg PO HS 09/01/20 [History] Melatonin 10 mg PO HS 09/01/20 [History] Acetaminophen Tab [Tylenol] 650 mg PO Q6HR PRN tab 09/13/20 [Rx] Albuterol Inhaler [Ventolin Hfa Inhaler] 2 puff INHALATION RT-TID #1 inh 09/13/20 [Rx] Apixaban [Eliquis] 5 mg PO DAILY 30 Days #30 tablet 09/13/20 [Rx] Ascorbic Acid [Vitamin C] 500 mg PO DAILY #30 tab 09/13/20 [Rx] Cholecalciferol [Vitamin D3 (25 Mcg = 1000 Iu)] 50 mcg PO DAILY #30 tablet 07/24/21 [Rx] Fluticasone Nasal Temperance [Flonase Nasal Temperance] 2 spray EA NOSTRIL DAILY PRN #1 spr 09/13/20 [Rx] Zinc Sulfate [Orazinc] 220 mg PO DAILY #30 cap 09/13/20 [Rx] Follow up Appointment(s)/Referral(s): Nonstaff,Physician [Primary Care Provider] - 1-2 days Reynaldo Roe DO [Doctor of Osteopathic Medicine] - 1 Week Activity/Diet/Wound Care/Special Instructions: Oxygen ordered through [facility] [place]: #[phone] Discharge Disposition: HOME SELF-CARE
== END 2020-09-13 16:31 | disposition home or self-care (01) | DRG 871 ==
LOC: EC 14:34 → 4SSUR 16:47 → 2SICU 09-07 08:16 → 4SSUR 09-10 16:43
PROVIDERS: ADMIT Hospitalist; ATTEND Hospitalist
PROC: XW033H5 Introduction of Tocilizumab into Peripheral Vein, Percutaneous Approach, New Technology Group 5 (ICD-10-PCS; principal; 2020-09-01)
PROC: XW033E5 Introduction of Remdesivir Anti-infective into Peripheral Vein, Percutaneous Approach, New Technology Group 5 (ICD-10-PCS; principal; 2020-09-01)
DX: A41.89 Other specified sepsis (principal); U07.1 COVID-19; J12.82 Pneumonia due to coronavirus disease 2019; J96.01 Acute respiratory failure with hypoxia; A08.39 Other viral enteritis; B17.8 Other specified acute viral hepatitis; D69.59 Other secondary thrombocytopenia; R79.1 Abnormal coagulation profile; D72.810 Lymphocytopenia; E66.9 Obesity, unspecified; Z68.32 Body mass index [BMI] 32.0-32.9, adult; E83.51 Hypocalcemia; E86.0 Dehydration; E87.6 Hypokalemia; Z90.49 Acquired absence of other specified parts of digestive tract; Z20.822 Contact with and (suspected) exposure to COVID-19
CPT/HCPCS: 36415; 71045; 71046; 71275; 80048; 80053; 81001; 82728; 83605; 83615; 83625; 83735; 84132; 84145; 85025; 85379; 85610; 85652; 86140; 87040; 87070; 87086; 87205; 87449; 87636; 93005; 94640; 94760; 96374; 99285